=== PATIENT | female | born 1940 | race Caucasian/White ===

== ENCOUNTER 2018-06-10 12:52 | Emergency (ER) | payer MEDICARE, BC ==
[2018-06-10 13:23] VITALS: BP 125/57
--- NOTE | 2018-06-10 14:15 | UC ---
Respiratory Complaint HPI - HPI Summary HPI Summary: Patient complains of one week of cough, chest congestion and nasal congestion. Feels short of breath with any exertion. Is concerned about pneumonia. Of note patient reports she had a left lower extremity DVT and a subsequent below the knee amputation 5 years ago. She currently denies chest pain or nausea. No fever. Is currently on ASA and Plavix. - History of Current Complaint Chief Complaint: UCRespiratory Stated Complaint: RESP ISSUE Time Seen by Provider: 06/10/18 13:57 Hx Obtained From: Patient Onset/Duration: Gradual Onset, Lasting Days, Still Present Timing: Constant Severity Initially: Moderate Severity Currently: Moderate Pain Intensity: 6 Pain Scale Used: 0-10 Numeric Character: Cough: Nonproductive Aggravating Factors: Nothing Alleviating Factors: Nothing Associated Signs And Symptoms: Positive: Dyspnea, Nasal Congestion. Negative: Fever, Wheezing - Allergies/Home Medications Allergies/Adverse Reactions: Allergies Allergy/AdvReac Type Severity Reaction Status Date / Time No Known Allergies Allergy Verified 11/14/17 14:14 Home Medications: Home Medications Iron 1 tab PO DAILY 06/10/18 [History Confirmed 06/10/18] guaiFENesin [Mucinex] 1,200 mg PO ONCE PRN 06/10/18 [History Confirmed 06/10/18] PMH/Surg Hx/FS Hx/Imm Hx - Additional Past Medical History Additional PMH: LLE DVT Endocrine History: Diabetes Cardiovascular History: Hypertension GI/ History: Gastroesophageal Reflux Other History Of: Negative For: HIV, Hepatitis B, Hepatitis C, Anticoagulant Therapy - Surgical History Surgical History: Yes Surgery Procedure, Year, and Place: LEFT LEG BKA SEPTEMBER 2012 [facility]. TONSILLECTOMY A CHILD. BILAT CATARACTS - Family History Known Family History: Positive: Cardiac Disease, Hypertension, Diabetes Negative: Unknown Family History: Cancer - Social History Alcohol Use: Occasionally Alcohol Amount: 1/WEEK Substance Use Type: None Smoking Status (MU): Former Smoker Have You Smoked in the Last Year: No When Did the Patient Quit Smoking/Using Tobacco: 1993 Review of Systems All Other Systems Reviewed And Are Negative: Yes Constitutional: Positive: Fatigue ENT: Positive: Sore Throat, Nasal Discharge Respiratory: Positive: Shortness Of Breath, Cough Cardiovascular: Positive: Negative Gastrointestinal: Positive: Negative Physical Exam Triage Information Reviewed: Yes Appearance: No Pain Distress, Well-Nourished, Other: - SEEMS FATIGUED Vital Signs: Initial Vital Signs Temp 98 F 06/10/18 13:17 Pulse 68 06/10/18 13:17 Resp 18 06/10/18 13:17 BP 125/57 06/10/18 13:17 Pulse Ox 96 06/10/18 13:17 Vital Signs Reviewed: Yes Eyes: Positive: Conjunctiva Clear ENT: Positive: Hearing grossly normal Neck: Positive: Supple Respiratory: Positive: No respiratory distress, No accessory muscle use, Crackles - RIGHT LOWER LUNG. Negative: Wheezing Cardiovascular Exam: Normal Abdomen Description: Positive: Soft Musculoskeletal: Positive: No Edema, Other: - LEFT BKA Neurological: Positive: Alert Psychological: Positive: Age Appropriate Behavior Skin: Negative: Rashes UC Diagnostic Evaluation - Laboratory O2 Sat by Pulse Oximetry: 96 - Radiology Radiology Interpretation Completed By: Radiologist Summary of Radiographic Findings: CXR Findings consistent with right basilar pneumonia. Left lung field is clear. Respiratory Course/Dx - Course Course Of Treatment: CXR WITH RLL PNA. RX FOR LEVAQUIN. ADVISED OF BLACK BOX WARNING CONCERNING TENDONITIS/TENDON RUPTURE. BENEFITS OUTWEIGHT RISKS WILL GO AHEAD AND TX WITH THIS MED. ALSO DISCUSSED CONCERN FOR PE GIVEN H/O DVT AND CURRENT SOB. PT DECLINES TRANSFER TO ED TO RULE THIS OUT. ADVISED THAT SHE COULD BE RISKING WORSENING OF HER CONDITION THAT COULD POSE A THREAT TO HER LIFE , HEALTH AND MEDICAL SAFETY. SHE VERBALIZES UNDERSTANDING AND CONTINUES TO DECLINE TRANSFER. - Differential Dx/Diagnosis Provider Diagnoses: RIGHT BASILAR PNEUMONIA Discharge - Sign-Out/Discharge Documenting (check all that apply): Patient Departure All imaging exams completed and their final reports reviewed: Yes - Discharge Plan Condition: Stable Disposition: HOME Prescriptions: Albuterol HFA INHALER* [Ventolin HFA Inhaler*] 2 puff INH Q4H PRN #1 mdi PRN Reason: Shortness Of Breath Benzonatate CAP* [Tessalon CAP*] 1 - 2 cap PO TID PRN #30 cap PRN Reason: Cough Levofloxacin TAB* [Levaquin TAB*] 750 mg PO DAILY #7 tab Patient Education Materials: Pneumonia (ED) Referrals: Ayesha Alberto MD [Primary Care Provider] - (KEEP YOUR APPT IN 5 DAYS) Additional Instructions: CHEST X-RAY TODAY SHOWS A RIGHT LOWER LOBE PNEUMONIA. WILL TREAT WITH LEVAQUIN. TAKE FOR THE FULL COURSE. KEEP YOUR PCP APPT IN 5 DAYS. YOU SHOULD ALSO REPEAT THE CHEST XRAY IN 4-6 WEEKS TO DOCUMENT FULL RESOLUTION. DISCUSSED AT YOUR VISIT I AM CONCERNED ABOUT THE POSSIBILITY OF A PULMONARY EMBOLISM GIVEN YOUR HISTORY OF A DVT. WE ARE UNABLE TO PROPERLY EVALUATE FOR THIS HERE IN THE URGENT CARE. YOU HAVE DECLINED TRANSFER TO THE ED TODAY WITH THE UNDERSTANDING THAT IF YOU HAVE A PE IN ADDITION TO THE PNEUMONIA YOUR CONDITION MAY WORSEN LEADING TO RESPIRATORY DISTRESS/FAILURE, CARDIAC ARREST, /DISABILITY. GO TO THE ED WITHOUT FAIL IF YOU DEVELOP WORSENING SHORTNESS OF BREATH, FEVER, CHEST PAIN, DIZZINESS OR ANY OTHER CONCERNING SYMPTOMS. - Billing Disposition and Condition Condition: STABLE Disposition: Home
== END 2018-06-10 15:00 | disposition home or self-care (01) ==
LOC: UCEAST 12:52
DX: J18.9 Pneumonia, unspecified organism (principal); I10 Essential (primary) hypertension; E11.9 Type 2 diabetes mellitus without complications; Z79.82 Long term (current) use of aspirin; Z79.01 Long term (current) use of anticoagulants; Z87.891 Personal history of nicotine dependence
CPT/HCPCS: 71046; 99212; G0463

== ENCOUNTER 2019-06-23 16:14 | Emergency (ER) | payer MEDICARE, OTHER, BC ==
--- OUTSIDE RECORDS SUMMARY | 2019-06-23 16:19 | XMS REPORT | Summary of Care ---
:1940 Author Organization [facility] Address [address] [place] [address] Care Team Providers Name Role Phone Ayesha Alberto MD Primary Care Provider Reason for Visit Reason Comments Follow Up Encounter Details Date Type Department Care Team Description 05/20/2019 Office Visit [facility] Dc Colin Atherosclerosis of Surgery MD [place] arteries of extremities [address] [facility] (Primary Dx) [place] [address] [place] [address] [phone] Allergies Active Allergy Reactions Severity Noted Date Comments Lyrica Other 04/30/2018 coughing documented as of this encounter (statuses as of 06/12/2019) Medications Medication Sig Dispensed Refills Start Date End Date Status metFORMIN Take 250 mg 0 Active (GLUCOPHAGE) 500 MG by mouth Oral Tab DAILY. escitalopram Take 20 mg 0 Active (LEXAPRO) 20 MG Oral by mouth Tab NEEDED. Losartan Potassium Take 100 mg 0 Active 100 MG Oral Tab by mouth EVERY MORNING. AMLODIPINE BESYLATE Take 10 mg 0 Active PO by mouth DAILY. Omeprazole delayed Take 20 mg 0 Active rel cap (PRILOSEC) by mouth 20 MG Oral CAPSULE DAILY. DELAYED Indications RELEASEIndications: : Every Every other day other day Aspirin 81 MG Oral Take 81 mg 0 Active Tab by mouth DAILY. ATENOLOL PO Take 10 mg 0 Active by mouth DAILY. OXYBUTYNIN CHLORIDE Take 20 mg 0 Active PO by mouth DAILY. acetaminophen Take 650 mg 0 Active (TYLENOL) 325 MG by mouth Oral Tab EVERY FOUR HOURS NEEDED for Pain. Cholecalciferol Take 1,000 0 Active (VITAMIN D) 400 Units by UNITS Oral Cap mouth DAILY. clopidogrel (PLAVIX) Take 75 mg 0 Active 75 MG Oral Tab by mouth DAILY. MAGNESIUM PO Take by 0 Active mouth EVERY BEDTIME. Multiple Take by 0 Active Vitamins-Minerals mouth (ZINC PO) DAILY. Probiotic Product Take by 0 Active (PROBIOTIC DAILY PO) mouth. MELATONIN PO Take by 0 Active mouth. Ascorbic Acid Take by 0 Discontinued (VITAMIN C) 100 MG mouth. 9 (Other) Oral Chew Tab Ascorbic Acid Take by 0 Discontinued (VITAMIN C PO) mouth 9 (Other) DAILY. documented as of this encounter (statuses as of 06/12/2019) Active Problems Problem Noted Date BKA stump complication 05/30/2014 Open wound, lower leg 10/14/2011 Open wound of groin without complication 09/23/2011 Leg skin lesion, left 09/23/2011 Atherosclerosis of arteries of extremities 06/10/2011 Atherosclerosis of [place] arteries of the extremities with 02/25/2011 ulceration(440.23) BMI 32.0-32.9,adult 02/15/2011 Anxiety disorder Overview: Dr. Alberto Type 2 diabetes, controlled, with peripheral circulatory disorder Overview: Dr. Norris Seizure disorder Overview: sub-clinical eye twitching, neurologist in [facility] GERD (gastroesophageal reflux disease) Hypertension Overview: Dr. Plasencia documented as of this encounter (statuses as of 06/12/2019) Immunizations Name Administration Dates Next Due Kenalog (60mg) 08/28/2011 documented as of this encounter Social History Tobacco Use Types Packs/Day Years Used Date Former Smoker Cigarettes Quit: 07/21/1990 Smokeless Tobacco: Never Used Alcohol Use Drinks/Week oz/Week Comments No Sex Assigned at Date Recorded Not on file Job Start Date Occupation Industry Not on file Not on file Not on file Travel History Travel Start Travel End No recent travel history available. documented as of this encounter Last Filed Vital Signs Vital Sign Reading Time Taken Comments Blood Pressure 132/68 05/20/2019 12:27 PM EDT Pulse 64 05/20/2019 12:27 PM EDT Temperature - - Respiratory Rate - - Oxygen Saturation - - Inhaled Oxygen Concentration - - Weight 79.4 kg (175 lb) 05/20/2019 12:27 PM EDT Height 162.6 cm (5' 4") 05/20/2019 12:27 PM EDT Body Mass Index 30.04 05/20/2019 12:27 PM EDT documented in this encounter Progress Notes Dc Colin MD - 05/20/2019 12:20 PM EDT PATIENT: Mili Ronquillo : 1940 DATE OF SERVICE: 05/20/2019 REFERRING PRACTITIONER: Dc Colin PRIMARY CARE PROVIDER: Ayesha Alberto CHIEF COMPLAINT: Chief Complaint Patient presents with Follow Up HISTORY OF PRESENT ILLNESS: Mili Ronquillo is a 79-y.o. female who is seen in 6 month F/U right lower extremity PAD. Denies any symtpoms consistent with intermittent claudication. She is S/P left below the knee amputation done at [facility] in September 2012 for diabetes and PAD after a failed left leg bypass. Denies any significant pain or ulcers at this point. She does note a hypersensitivity of the left bka stump with numbness and pain which moves from area to area. Denies any pain or ulcers in the right lower extremity. DIAGNOSTICS 11/05/2018 EXAMINATION: Arterial - Lower INDICATION: PVD -443.9 TECHNOLOGIST: Nicole Jorgensen RT RVT IMPRESSION IMPRESSIONS: Indication: Follow up right LE PVD, prior LT AKA PVRs and dopplers of the right lower extremity were performed. The right lower extremity thigh and calf PVRs are mild, the ankle and transmet are moderate, and the 1st toe is mild with biphasic dopplers obtained at the dorsalis pedis and posterior tibial arteries. ABIs are not applicable due to noncompressible vessels. RT MILADIS: 1.20 There is no change seen since the previous study completed on 04/30/18. PVRs and dopplers can be viewed in the [facility]. MILADIS VALUE: Over 1.3 (Non compressible), .90-1.3 (Normal ) .89-.60 (Mild), .59-.40(Moderate),Under .40 (Severe) 04/30/18 IMPRESSIONS: Follow up right lower extremity PVD. History of left AKA. PVR waveforms of the right lower extremity were performed and were normal at the thigh and calf level, and mild from the ankle to the toe level. The right MILADIS was 1.07 with biphasic PT and DP Dopplers. This appears to be unchanged from the previus exam of 08/21/2017. PVR's and Dopplers can be viewed in the [facility] office. MILADIS VALUE: Over 1.3 (Non compressible), .90-1.3 (Normal ) .89-.60 (Mild), .59-.40(Moderate),Under .40 (Severe) PREVIOUS DIAGNOSTICS; 08/21/17 IMPRESSIONS: Indication: Follow up right lower extremity PVD PVRs and dopplers of the right lower extremity was performed. The right lower extremity thigh and calf PVRs are normal, the ankle, transmet, and 1st toe are mild with biphasic dopplers obtained at the dorsalis pedis and posterior tibial arteries. RT MILADIS: 1.06 NC There is a change seen since the previous study competed on 02/13/17. Today's MILADIS does appear to be noncompressible as the previous MILADIS was 0.77 with no change seen in the dopplers obtained at the dorsalis pedis and posterior tibial arteries. PVRs and dopplers can be viewed in the [facility] office. Current Outpatient Medications Medication Sig acetaminophen (TYLENOL) 325 MG Oral Tab Take 650 mg by mouth EVERY FOUR HOURS NEEDED for Pain. AMLODIPINE BESYLATE PO Take 10 mg by mouth DAILY. Aspirin 81 MG Oral Tab Take 81 mg by mouth DAILY. ATENOLOL PO Take 10 mg by mouth DAILY. Cholecalciferol (VITAMIN D) 400 UNITS Oral Cap Take 1,000 Units by mouth DAILY. clopidogrel (PLAVIX) 75 MG Oral Tab Take 75 mg by mouth DAILY. escitalopram (LEXAPRO) 20 MG Oral Tab Take 20 mg by mouth NEEDED. Losartan Potassium 100 MG Oral Tab Take 100 mg by mouth EVERY MORNING. MAGNESIUM PO Take by mouth EVERY BEDTIME. MELATONIN PO Take by mouth. metFORMIN (GLUCOPHAGE) 500 MG Oral Tab Take 250 mg by mouth DAILY. Multiple Vitamins-Minerals (ZINC PO) Take by mouth DAILY. Omeprazole delayed rel cap (PRILOSEC) 20 MG Oral CAPSULE DELAYED RELEASE Take 20 mg by mouth DAILY. Indications: Every other day OXYBUTYNIN CHLORIDE PO Take 20 mg by mouth DAILY. Probiotic Product (PROBIOTIC DAILY PO) Take by mouth. No current facility-administered medications for this visit. Allergies Allergen Reactions Lyrica Other coughing ROS: pertinent findings as in HPI. PHYSICAL EXAMINATION: VITALS: BP 132/68 (BP Location: Right arm, Patient Position: Sitting) | Pulse 64 | Ht 5' 4" (1.626 m) | Wt 175 lb (79.4 kg) | BMI 30.04 kg/m GENERAL: awake, alert, oriented, no distress. EXTREMITIES: amputation: left BKA without ulcers or open areas. PULSES: right PT dopplerable and DP dopplerable DIAGNOSTICS: 05/20/91 EXAMINATION: Arterial - Lower INDICATION: PVD -443.9 TECHNOLOGIST: Nicole Jorgensen RT RVT IMPRESSION IMPRESSIONS: Indication: PVD with previous left below the knee amputation PVRs and dopplers of the bilateral lower extremities were performed. The right lower extremity thigh and calf PVRs are normal, the ankle, transmet, and 1st toe are mild with biphasic dopplers obtained at the dorsalis pedis and posterior tibial arteries. RT MILADIS: 0.96 The left lower extremity thigh PVR is mild and the calf is moderate. There appears to be little to no change seen since the previous study completed on 11/05/18. PVRs and dopplers can be viewed in the [facility] office. MILADIS Value: Over 1.3 (Noncompressible), 0.90-1.3 (Normal, 0.89 - 0.60 (Mild), 0.59-0.40 (Moderate), Under 0.40 (Severe) IMPRESSION AND PLAN: Right lower extremity stable arterial perfusion. Continue aggressive management of her atherosclerotic risks factors, including aggressive management of her diabetes to prevent right leg limb loss in the long run. Continue Walking. I discuss with her diabetic foot care and prevention of trauma or ulcers. Continue ASA and Plavix. The patient will follow up in the Vascular Department in 6 months or sooner if problems arise. This note was created using my previous note as a template, changes were made where appropriate, allinformation in the current note is up to date to the best of my knowledge. Author: Dc Colin MD 05/20/2019 13:08 documented in this encounter Plan of Treatment Date Type Specialty Care Team Description 11/11/2019 Office Visit Vascular Surgery Dc Colin MD [address] [place] [address] [phone] Health Maintenance Due Date Last Done Comments Diabetic Eye Exam 1940 HEMOGLOBIN A1C 1940 MEDICARE ANNUAL WELLNESS VISIT 1940 DEPRESSION SCREENING 1954 HIV SCREENING 1957 FOOT EXAM 1960 ZOSTER IMMUNIZATION SERIES (1 of 2) 1992 FALL RISK ASSESSMENT 2007 OSTEOPOROSIS SCREENING 2007 PNEUMOCOCCAL 65+YRS (1 of 2 - 2007 PCV13) INFLUENZA VACCINE (#1) 2019 HPV IMMUNIZATION SERIES Aged Out No longer eligible based on patient's age to complete this topic MENINGOCOCCAL VACCINE IMM Aged Out No longer eligible based on patient's age to complete this topic documented as of this encounter Results Not on filedocumented in this encounter Visit Diagnoses Diagnosis Atherosclerosis of arteries of extremities (HCC) - Primary Atherosclerosis of [place] arteries of the extremities, unspecified documented in this encounter Insurance Payer Benefit Plan / Subscriber ID Effective Dates Phone Address Type Group MEDICARE MEDICARE PART A & xxxxxxxxxxx 2007-Present Medicare B [employer] xxxxxxxxx 2007-Present Thelma documented as of this encounter
[2019-06-23 16:37] VITALS: BP 154/70
--- NOTE | 2019-06-23 16:41 | UC ---
Skin Complaint HPI - HPI Summary HPI Summary: 79 yo female presents with LEFT leg concern. She tells me that years ago she had a left BKA. Recently she has been having trouble with pain to the leg and has been having her prosthetic leg adjusted. Over the last 2 days her prosthesis has been rubbing her stump. Today she noticed increased pain and redness to the skin at the area. She called the wound clinic as she has seen them in the past for sores to her stump with positive MRSA - made an appt for this monday 06/25. Denies fever, chills, or open wound. - History of Current Complaint Chief Complaint: UCLowerExtremity Time Seen by Provider: 06/23/19 16:40 Stated Complaint: SKIN COMPLAINT KNEE Hx Obtained From: Patient Onset/Duration: Gradual Onset Onset Severity: Severe Current Severity: Severe Pain Intensity: 9 Pain Scale Used: 0-10 Numeric - Allergy/Home Medications Allergies/Adverse Reactions: Allergies Allergy/AdvReac Type Severity Reaction Status Date / Time No Known Allergies Allergy Verified 06/23/19 16:37 PMH/Surg Hx/FS Hx/Imm Hx - Additional Past Medical History Additional PMH: PVD Endocrine History: Diabetes Cardiovascular History: Hypertension Other History Of: Negative For: HIV, Hepatitis B, Hepatitis C, Anticoagulant Therapy - Surgical History Surgical History: Yes Surgery Procedure, Year, and Place: LEFT LEG BKA SEPTEMBER 2012 [facility]. TONSILLECTOMY A CHILD. BILAT CATARACTS - Family History Known Family History: Positive: Cardiac Disease, Hypertension, Diabetes Negative: Unknown Family History: Cancer - Social History Alcohol Use: Occasionally Alcohol Amount: 1/WEEK Substance Use Type: None Smoking Status (MU): Former Smoker Have You Smoked in the Last Year: No When Did the Patient Quit Smoking/Using Tobacco: 1993 Review of Systems All Other Systems Reviewed And Are Negative: No Constitutional: Positive: Negative Skin: Positive: Other - Redness and pain left stump Respiratory: Positive: Negative Cardiovascular: Positive: Negative Neurovascular: Positive: Negative Neurological: Positive: Negative Psychological: Positive: Negative Physical Exam - Summary Physical Exam Summary: GENERAL: NAD. WDWN. No pain distress. SKIN: LEFT STUMP: Moderate erythema about anterior aspect with TTP. Mild warmth. No open sores, streaking, or drainage. No abscess or induration appreciated. CHEST: No accessory muscle use. Breathing comfortably and in no distress. CV: Pulses intact. Cap refill <2seconds NEURO: Alert. PSYCH: Age appropriate behavior. Triage Information Reviewed: Yes Vital Signs: Initial Vital Signs Temp 99.1 F 06/23/19 16:30 Pulse 76 06/23/19 16:30 Resp 18 06/23/19 16:30 BP 154/70 06/23/19 16:30 Pulse Ox 98 06/23/19 16:30 Vital Signs Reviewed: Yes Diagnostics - Radiology CT left stump Radiology Interpretation Completed By: Radiologist Summary of Radiographic Findings: IMPRESSION: #. No fracture or CT stigmata of osteomyelitis. #. Nonspecific soft tissue swelling about the knee and below knee amputation stump. #. Osteoarthritis at the knee. Negative for joint effusion. Course/Dx - Course Course Of Treatment: Ct as above. No fever or chills. Suspect cellulitis from her prosthesis rubbing against the area. Will place her on clindamycin given her history of MRSA. Strongly advised to keep her appointment with the wound clinic in 2 days for a recheck - Diagnoses Provider Diagnosis: Cellulitis of left leg Discharge ED - Sign-Out/Discharge Documenting (check all that apply): Patient Departure All imaging exams completed and their final reports reviewed: Yes - Discharge Plan Condition: Stable Disposition: HOME Prescriptions: Clindamycin HCl 300 mg PO TID #21 capsule Patient Education Materials: Cellulitis (ED) Referrals: Ayesha Alberto MD [Primary Care Provider] - Additional Instructions: If you develop a fever, shortness of breath, chest pain, new or worsening symptoms - please call your PCP or go to the ED immediately. Please take the antibiotics as prescribed. Keep your appointment with the wound center for this friday for a recheck of your leg. - Billing Disposition and Condition Condition: STABLE Disposition: Home
== END 2019-06-23 18:06 | disposition home or self-care (01) ==
LOC: UCEAST 16:14
DX: L03.116 Cellulitis of left lower limb (principal); M17.12 Unilateral primary osteoarthritis, left knee; T87.89 Other complications of amputation stump; M79.89 Other specified soft tissue disorders; E11.9 Type 2 diabetes mellitus without complications; I10 Essential (primary) hypertension; Z96.643 Presence of artificial hip joint, bilateral; Z96.653 Presence of artificial knee joint, bilateral; Z87.891 Personal history of nicotine dependence; Y83.5 Amputation of limb(s) as the cause of abnormal reaction of the patient, or of later complication, without mention of misadventure at the time of the procedure
CPT/HCPCS: 99212; G0463

== ENCOUNTER → 2019-09-17 09:42 | Day surgery (SDC) | payer MEDICARE, BC ==
[~2019-09-17 09:42] MED LIST: Atenolol TAB* 25 MG PO ONE; Flumazenil* 0.1 MG/ML 5 ML MDV ONE; Heparin 2 UNITS/ML IVPREMIX* 2,000 ML IV ONE; Iodixanol 320 (CONTRAST) 100 ML SDV ONE; LORazepam TAB(*) 1 MG ONE; Lidocaine 1% INJ* 10 MG/ML 30 ML SDV ONE; Losartan TAB* 25 MG PO ONE; Midazolam* 1 MG/ML 5 ML VIAL (5 MG) ONE; Naloxone* 0.4 MG/ML 1 ML VIAL ONE; amLODIPine TAB* 5 MG PO ONE; fentaNYL* 50 MCG/ML 2 ML VIAL (100 MCG VIAL) ONE; hydrALAZINE IV* 20 MG/ML VIAL ONE
[2019-09-17 10:59] LABS: ABS Basophils 0.1 10^3/ul (0-0.2); ABS Eosinophils 0.2 10^3/ul (0-0.6); ABS Lymphocytes 2.5 10^3/ul (1.0-4.8); ABS Monocytes 0.5 10^3/ul (0-0.8); ABS Neutrophils 4.1 10^3/ul (1.5-7.7); Eosinophil % 3.1 %; Hematocrit 40 % (35-47); Hemoglobin 13.8 g/dL (12.0-16.0); Lymphocyte % 33.4 %; Mean Corpuscular HGB Conc 35 g/dL (31-36); Mean Corpuscular Hemoglobin 32 pg (27-31); Mean Corpuscular Volume 94 fL (80-97); Mean Platelet Volume 7.2 fL (7.4-10.4); Nucleated Red Blood Cells % 0.1; Platelet Count 214 10^3/uL (150-450); Red Blood Count 4.26 10^6 /uL (3.70-4.87); Red Cell Distribution Width 14 % (10-15); White Blood Count 7.4 10^3/uL (3.5-10.8)
[2019-09-17 11:04] LABS: Activated Partial Thrombo Time 30.3 seconds (26.0-38.0); INR 1.02 (0.82-1.09)
[2019-09-17 11:42] LABS: BUN/Creatinine Ratio 14.3 (8-20); EGFR African American 41.7 (>60); EGFR Non-African American 34.5 (>60); Potassium 4.4 mmol/L (3.5-5.0)
[2019-09-17 15:31] VITALS: BP 189/108
== END | disposition home or self-care (01) ==
LOC: CHICATH 09:42
PROVIDERS: ATTEND Radiology Diagnostic Radiology
DX: L97.821 Non-pressure chronic ulcer of other part of left lower leg limited to breakdown of skin (principal); T87.89 Other complications of amputation stump; I73.9 Peripheral vascular disease, unspecified; I10 Essential (primary) hypertension; M54.16 Radiculopathy, lumbar region; Z87.891 Personal history of nicotine dependence; Z79.01 Long term (current) use of anticoagulants; R06.00 Dyspnea, unspecified; I07.9 Rheumatic tricuspid valve disease, unspecified; E11.9 Type 2 diabetes mellitus without complications; Z79.84 Long term (current) use of oral hypoglycemic drugs; Z89.512 Acquired absence of left leg below knee
CPT/HCPCS: 36415; 75736; 76937; 80048; 85025; 85610; 85730; 99156; 99157; A9270-GY; C1760; C1769; C1887; C1894; J0360; J1644; J2250; J2310; J3010

== ENCOUNTER 2019-10-18 15:50 | Emergency (ER) | payer MEDICARE, BC ==
--- OUTSIDE RECORDS SUMMARY | 2019-10-18 15:56 | XMS REPORT | Continuity of Care Document ---
:1940 External Reference #:[id number] Author Name Matty Garcia M.D. (transmitted by agent of provider Shayna Alvarez) Address [address] [facility] [address] [place] [address] Care Team Providers Name Role Phone Ayesha Bose MD - Family Medicine Care Team Information Shopper Insights Manager Problems Active Problems Provider Date Benign essential hypertension Shawn Cox M.D., [facility] Onset: 2012 Dyspnea Shawn Cox M.D., [facility] Onset: 05/04/2013 Mitral valve disorder Shawn Cox M.D., [facility] Onset: 05/23/2014 Rheumatic disease of tricuspid valve Shawn Cox M.D., [facility] Onset: Strain of rotator cuff capsule Hansel Lewis M.D. Onset: 02/21/2015 Disorder due to and following Anjum Hernandez MD Onset: 06/07/2015 fracture of upper limb Essential hypertension Darwin Atwood M.D. Onset: 06/10/2017 Snoring Khloe Quevedo DNP, RN, Onset: 04/27/2018 AUTOGLAZIER-BC Disturbance in sleep behavior Khloe Quevedo DNP, RN, Onset: 04/27/2018 AUTOGLAZIER-BC Hypoxemia Khloe Quevedo DNP, RN, Onset: 04/27/2018 AUTOGLAZIER-BC Lumbar radiculopathy Matty Garcia M.D. Onset: 07/28/2019 Ulcer of lower extremity Matty Garcia M.D. Onset: 07/28/2019 Atherosclerosis of arteries of the Matty Garcia M.D. Onset: 07/28/2019 extremities Social History Type Date Description Comments Sex Unknown Tobacco Use Start: Unknown End: Former Cigarette Smoker Smoked 1 ppd for 30 Unknown years Smoking Status Reviewed: 08/04/19 Former Cigarette Smoker Smoked 1 ppd for 30 years ETOH Use Occasionally consumes alcohol Tobacco Use Start: Unknown End: Patient is a former quit when she was Unknown smoker 52 years old Recreational Drug Use Denies Drug Use Exercise Type/Frequency Exercises regularly 4x/weekly swimming Allergies, Adverse Reactions, Alerts Active Allergies Reaction Severity Comments Date Pregabalin 06/10/2017 Inactive Allergies NKDA 05/04/2013 Medications Active Medications SIG Qnty Indications Ordering Provider Date Tylenol Extra 1-2 tabs by Matty Garcia, 07/28/2019 Strength mouth every 6 M.DBarry 500mg Tablets hours as needed Atenolol 1 by mouth twice 180tabs Darwin Sheldon 03/24/2019 25mg Tablets a day Saeed Atwood Melatonin one cap po every Unknown 03/23/2019 1mg Capsules night Losartan Potassium 1 po qd 90tabs Shawn Cox, 04/29/2013 Saeed, FACC, FSCAI 100mg Tablets Norvasc 1 po Am 30tabs Unknown 10mg Tablets Plavix 1 po qd 30tabs Unknown 75mg Tablets Omeprazole 1 po qd prn 90caps Unknown 20mg Capsules DR Oxybutynin Chloride One by mouth Unknown ER daily Vitamin D 1 by mouth every Unknown 4000 Capsules day Metformin HCL 1 by mouth every Unknown 500mg day Tablets Immunizations Description No Information Available Vital Signs Date Vital Result Comment 08/04/2019 10:44am Height 64 inches 5'4" Weight 175.00 lb Heart Rate 58 /min BP Systolic 162 mmHg BP Diastolic 82 mmHg Respiratory Rate 20 /min O2 % BldC Oximetry 98 % BMI (Body Mass Index) 30.0 kg/m2 07/28/2019 11:07am Height 64 inches 5'4" Weight 175.12 lb w/ shoes Heart Rate 54 /min L. radial, regular BP Systolic Sitting 146 mmHg LA, reg cuff BP Diastolic Sitting 62 mmHg LA, reg cuff BMI (Body Mass Index) 30.1 kg/m2 Results Test Acquired Date Facility Test Result H/L Range Note CBC Auto 09/17/2019 [facility] White Blood 7.4 10^3/uL Normal 3.5-10.[address] [place] [address] [phone] Red Blood Count 4.26 10^6/uL Normal 3.70-4.87 Hemoglobin 13.8 g/dL Normal 12.0-16.0 Hematocrit 40 % Normal 35-47 Mean Corpuscular Volume 94 fL Normal 80-97 Mean Corpuscular Hemoglobin 32 pg High 27-31 Mean Corpuscular HGB Conc 35 g/dL Normal 31-36 Red Cell Distribution Width 14 % Normal 10-15 Platelet Count 214 10^3/uL Normal 150-450 Mean Platelet Volume 7.2 fL Low 7.4-10.4 Abs Neutrophils 4.1 10^3/uL Normal 1.5-7.7 Abs Lymphocytes 2.5 10^3/uL Normal 1.0-4.8 Abs Monocytes 0.5 10^3/uL Normal 0-0.8 Abs Eosinophils 0.2 10^3/uL Normal 0-0.6 Abs Basophils 0.1 10^3/uL Normal 0-0.2 Abs Nucleated RBC 0.0 10^3/uL Granulocyte % 55.5 % Lymphocyte % 33.4 % Monocyte % 7.1 % Eosinophil % 3.1 % Basophil % 0.9 % Nucleated Red Blood Cells % 0.1 Inr/Protime 09/17/2019 [facility] Inr 1.02 Normal 0.82-1.[address] [place] [address] [phone] Laboratory test 09/17/2019 [facility] Partial 30.3 Normal 26.0 -38.0 finding [address] [place] [address] Time PTT [phone] Basic Metabolic 09/17/2019 [facility] Sodium 139 mmol/L Normal 135-[address] [place] [address] [phone] Potassium 4.4 mmol/L Normal 3.5-5.0 Chloride 109 mmol/L Normal 101-111 Co2 Carbon Dioxide 23 mmol/L Normal 22-32 Anion Gap 7 mmol/L Normal 2-11 Glucose 136 mg/dL High 70-100 Blood Urea Nitrogen 21 mg/dL Normal 6-24 Creatinine 1.47 mg/dL High 0.51-0.95 BUN/Creatinine Ratio 14.3 Normal 8-20 Calcium 10.0 mg/dL Normal 8.6-10.3 Egfr Non- 34.5 >60 Egfr 41.7 >60 2 Wound 06/25/2019 [facility] Wound/Misc SEE RESULT 3, 4 Culture/Sensi [address] [place] [address] Stain [phone] 1 Standard intensity warfarin therapeutic range: 2.0-3.0 High intensity warfarin therapeutic range: 2.5-3.5 2 Because ethnic data is not always readily available, this report includes an eGFR for both -Americans and non- Americans. The National Kidney Disease Education Program (NKDEP) does not endorse the use of the MDRD equation for patients that are not between the ages of 18 and 70, are , have extremes of body size, muscle mass, or nutritional status, or are non- or non-. According to the National Kidney Foundation, irrespective of diagnosis, the stage of the disease is based on the level of kidney function: Stage Description GFR(mL/min/1.73 m(2)) 1 Kidney damage with normal or decreased GFR 90 2 Kidney damage with mild decrease in GFR 60-89 3 Moderate decrease in GFR 30-59 4 Severe decrease in GFR 15-29 5 Kidney failure <15 (or dialysis) 3 LEFT STUMP SITE 4 SEE RESULT BELOW Name: MILI RONQUILLO : [address]: Ildefonso Cordova MD Acct: [id number] Unit: [id number] AGE: 79 Location: WOUND Re06/25/19 SEX: F Status: REG REF SPEC: [id number] HUSSAIN: 06/25/19-[address]: Ildefonso Cordova MD REQ: [id number] RECD: 06/25/19 STATUS: PACHECO STOVALL DR: Ayesha Alberto MD _ SOURCE: NO SOURCE SPDESC: ORDERED: Culture Stain COMMENTS: LEFT STUMP SITE QUERIES: Specimen Description STUMP SITE Procedure Result Reported Site Wound/Misc Gram Stain Final 06/26/19- 0559 ML 1+ Neutrophils 1+ Gram Positive Cocci Wound/Misc Culture Final 06/27/19- 1006 ML Organism 1 STAPHYLOCOCCUS AUREUS Quantity 2+ 1. STAPHYLOCOCCUS AUREUS M.I.C. RX --------- ------ Penicillin >=0.5 R Clindamycin <=0.25 S Erythromycin >=8 R Gentamicin <=0.5 S Linezolid 2 S Oxacillin <=0.25 S * Quinupristin/Dalfopristin <=0.25 S Rifampin <=0.5 S Tetracycline <=1 S Doxycycline - Deduced S * Minocycline - Deduced S Trimethoprim/Sulfamethoxazole <=10 S Vancomycin 1 S CONTINUED ON NEXT PAGE DEPARTMENT OF PATHOLOGY, [address] [place] [address] Pepe Parrish M.D. Director [facility] # [id number] Specimen: [id number] Collected: 06/25/19 Received: 06/25/19 (Continued) Procedure Result Reported Site Wound/Misc Culture Final (continued) 06/27/19- 1006 1. STAPHYLOCOCCUS AUREUS (continued) M.I.C. RX --------- ------ Imipenem-Deduced S * Ampicillin/Sulbactam-Deduced S Cefazolin-Deduced S * These antibiotics are not available in the [facility] Formulary Contact the Microbiology Department for any additional antibiotic reporting. * ML - Main Lab . END OF REPORT DEPARTMENT OF PATHOLOGY, [address] [place] [address] Pepe Parrish M.D. Director [facility] # [id number] Procedures Date Code Description Status 09/17/2019 89209 Moderate Sedation Services; Same Phys Intl 15 Mins; PT Completed >= 5 Years 09/17/2019 01352 Ultrasound Guidance For Vascular Access Completed 09/17/2019 27724 Angio Extremity, Bilateral Completed 09/17/2019 44942 Catheter Placement Arterial System Init 3RD Order Completed Abdom/Pelv/Low 11/14/2017 85260843 Colonoscopy Completed Medical Devices Description No Information Available Encounters Type Date Location Provider Dx Diagnosis Office Visit 09/17/2019 Wound Care Ildefonso Cordova, T87.89 Other complications 9:00a Center AT [facility] CHANDANA LOPES of amputation stump I70.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 athscl [place] arteries of extremities, left leg Office Visit 08/20/2019 11:00a Wound Care Ildefonso Yan T87.89 Other complications Center AT [facility] MD Tasha, of amputation stump FACS 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 M54.16 Radiculopathy, lumbar region Office Visit 07/23/2019 Marina Hall T87.89 Other 1:00p Orthopedics at complications of [place] amputation stump Office Visit 07/12/2019 Wound Care Center Ildefosno Cordova, T87.89 Other 1:45p AT [facility] CHANDANA LOPES complications of amputation stump I70.202 Unsp athscl [place] arteries of extremities, left leg Office Visit 07/07/2019 11:15a Wound Care Dennys Ruiz T87.89 Other complications Center AT MD Emil of amputation stump [facility] Office Visit 07/02/2019 10:15a Wound Tomeka Cordova T87.89 Other complications Center AT CHANDANA LOPES of amputation stump [facility] Office Visit 06/25/2019 10:00a Wound Care Ildefonso Cordova I70.202 [facility] AT CHANDANA LOPES arteries of [facility] extremities, left leg T87.89 Other complications of amputation stump Assessments Date Code Description Provider 09/17/2019 I70.202 Unspecified atherosclerosis of [place] Matty Garcia M.D. arteries of extremities, left leg 09/17/2019 T87.89 Other complications of amputation stump Ildefonso Cordova MD , FACS 09/17/2019 I70.202 Unspecified atherosclerosis of [place] Ildefonso Cordova MD , FACS arteries of extremities, left leg 08/20/2019 T87.89 Other complications of amputation stump Ildefonso Cordova MD , FACS 08/20/2019 I70.202 Unspecified atherosclerosis of [place] Ildefonso Cordova MD , FACS arteries of extremities, left leg 08/04/2019 T84.498A Other mechanical complication of other Hailey Vital M.D. internal orthopedic devices, implants and grafts, initial encounter 08/04/2019 R22.31 Localized swelling, mass and lump, right Hailey Vital M.D. upper limb 07/30/2019 T87.89 Other complications of amputation stump Ildefonso Cordova MD , FACS 07/30/2019 I70.202 Unspecified atherosclerosis of [place] Ildefonso Cordova MD , FACS arteries of extremities, left leg 07/28/2019 I70.202 Unspecified atherosclerosis of [place] Matty Garcia M.D. 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 07/23/2019 T87.89 Other complications of amputation stump Thomas Hall MD 07/12/2019 T87.89 Other complications of amputation stump Ildefonso Cordova MD , FACS 07/12/2019 I70.202 Unspecified atherosclerosis of [place] Ildefonso Cordova MD , FACS arteries of extremities, left leg 07/07/2019 T87.89 Other complications of amputation stump Dennys Stein MD 07/02/2019 T87.89 Other complications of amputation stump Ildefonso Cordova MD , FACS 06/25/2019 I70.202 Unspecified atherosclerosis of [place] Ildefonso Cordova MD , FACS arteries of extremities, left leg 06/25/2019 T87.89 Other complications of amputation stump Ildefonso Cordova MD , FACS Plan of Treatment 08/04/2019 - Hailey Vital M.D.T84.498A Other mechanical complication of other internal orthopedic devices, implants and grafts, initial encounterFollow up:Follow up: As [id number] Localized swelling, mass and lump, right upper limb Functional Status Description No Information Available Mental Status Description No Information Available Referrals Description No Information Available
--- OUTSIDE RECORDS SUMMARY | 2019-10-18 15:56 | XMS REPORT | Summary of Care ---
:1940 Author Organization [facility] Address [address] [facility] [place] [address] Care Team Providers Name Role Phone Ayesha Alberto MD Primary Care Provider Reason for Referral Refer to Department Only (Routine) Status Reason Specialty Diagnoses / Referred By Referred To Procedures Contact Contact Authorized NEUROSURGERY / Diagnoses Stump pain (HCC) Dc Colin Neurosurgery MD [place] [address] [facility] [place] [address] Scheduling Instructions To refer a patient to the [facility] please call [phone] Please have the following ready: -Symptoms of patient being referred -Recent films if available, NOT REQUIRED! -Known prior sugeries Reason for Visit Reason Comments Peripheral Vascular Disease 6 month f/u. Hx: left BKA. Encounter Details Date Type Department Care Team Description 09/30/2019 Office Visit [place] V[facility] Dc Colin Stump pain (HCC) ( Primary Dx); Surgery MD [place] BKA stump complication (HCC); [address] [facility] History of left below knee amputation (HCC); [place] [address] [place] [address] Atherosclerosis of arteries of extremities (HCC); [phone] Type 2 diabetes, controlled, with peripheral circulatory disorder ([facility]) Allergies Active Allergy Reactions Severity Noted Date Comments Lyrica Other 04/30/2018 coughing documented as of this encounter (statuses as of 10/02/2019) Medications Medication Sig Dispensed Refills Start Date End Date Status metFORMIN Take 500 mg 0 Active (GLUCOPHAGE) 500 MG by [...] 75 MG Oral Tab by mouth DAILY. MELATONIN PO Take by 0 Active mouth. MAGNESIUM PO Take by 0 Discontinued mouth EVERY 0 (Discontinued by BEDTIME. Patient Contact Move Utility) Multiple Take by 0 Discontinued Vitamins-Minerals mouth 0 (Discontinued by (ZINC PO) DAILY. Patient Contact Move Utility) Probiotic Product Take by 0 Discontinued (PROBIOTIC DAILY PO) mouth. 0 (Discontinued by Patient Contact Move Utility) documented as of this encounter (statuses as of 10/02/2019) Active Problems Problem Noted Date BKA stump complication 05/30/2014 Open wound, lower leg 10/14/2011 Open wound of groin without complication 09/23/2011 Leg skin lesion, left 09/23/2011 Atherosclerosis of arteries of extremities 06/10/2011 Atherosclerosis of grindstone arteries of the extremities with 02/25/2011 ulceration(440.23) BMI 32.0-32.9,adult 02/15/2011 Anxiety disorder Overview: Dr. Alberto Type 2 diabetes, controlled, with peripheral circulatory disorder Overview: Dr. Norris Seizure disorder Overview: sub-clinical eye twitching, neurologist in [facility] GERD (gastroesophageal reflux disease) Hypertension Overview: Dr. Plasencia documented as of this encounter (statuses as of 10/02/2019) Social History Tobacco Use Types Packs/Day Years Used Date Former Smoker Cigarettes Quit: 07/21/1990 Smokeless Tobacco: Never Used Alcohol Use Drinks/Week oz/Week Comments No Sex Assigned at Date Recorded Not on file documented as of this encounter Last Filed Vital Signs Vital Sign Reading Time Taken Comments Blood Pressure 140/82 09/30/2019 1:20 PM EDT Pulse 58 09/30/2019 1:20 PM EDT Temperature - - Respiratory Rate - - Oxygen Saturation - - Inhaled Oxygen Concentration - - Weight 79.4 kg (175 lb) 09/30/2019 1:20 PM EDT Height 161.3 cm (5' 3.5") 09/30/2019 1:20 PM EDT Body Mass Index 30.51 09/30/2019 1:20 PM EDT documented in this encounter Progress Notes Dc Colin MD - 09/30/2019 1:00 PM EDT PATIENT: Mili Ronquillo : 1940 DATE OF SERVICE: 09/30/2019 REFERRING PRACTITIONER: Self-Referred PRIMARY CARE PROVIDER: Ayesha Alberto CHIEF COMPLAINT: Chief Complaint Patient presents with ? Peripheral Vascular Disease 6 month f/u. Hx: left BKA. HISTORY OF PRESENT ILLNESS: Mili Ronquillo is a 79-y.o. female who is seen in 6 month F/U right lower extremity PAD. Denies any symtpoms consistent with intermittent claudication. She is S/P left below the knee amputation done at [facility] in September 2012 for diabetes and PAD after a failed left leg bypass. She notes small wound on end of stump. She notes left stump shooting pain which is not constant but intermittent. It seems worse when she takes prosthesis off and rests .She notes numbness and coolness of the stump which is off and on. Denies any pain or ulcers in the right lower extremity. She recently had an angiogram performed at [facility] which indicated left popliteal artery occlusion from knee down to stump. PREVIOUS DIAGNOSTICS: 05/20/19 ? EXAMINATION: Arterial - Lower ? INDICATION: PVD -443.9 ? TECHNOLOGIST: Nicole Jorgensen RT RVT ? ? IMPRESSION IMPRESSIONS: Indication: PVD with previous left below the knee amputation ? ? PVRs and dopplers of the bilateral lower extremities were performed. ? ? The right lower extremity thigh and calf PVRs are normal, the ankle, transmet, and 1st toe are mild with biphasic dopplers obtained at the dorsalis pedis and posterior tibial arteries. ? RT MILADIS: 0.96 ? The left lower extremity thigh PVR is mild and the calf is moderate. ? ? There appears to be little to no change seen since the previous study completed on 11/05/18. ? ? PVRs and dopplers can be viewed in the Screening Unit Registered Nurse's office. ? ? ? MILADIS Value: Over 1.3 (Noncompressible), 0.90-1.3 (Normal, 0.89 - 0.60 (Mild), 0.59-0.40 (Moderate), Under 0.40 (Severe) 11/05/2018 EXAMINATION: Arterial - Lower ? INDICATION: PVD -443.9 ? TECHNOLOGIST: Nicole Jorgensen RT RVT ? ? IMPRESSION IMPRESSIONS: Indication: Follow up right LE PVD, prior LT AKA ? ? ? PVRs and dopplers of the right lower extremity were performed. ? ? The right lower extremity thigh and calf PVRs are mild, the ankle and transmet are moderate, and the 1st toe is mild with biphasic dopplers obtained at the dorsalis pedis and posterior tibial arteries. ? ABIs are not applicable due to noncompressible vessels. ? RT MILADIS: 1.20 ? ? ? There is no change seen since the previous study completed on 04/30/18. ? ? PVRs and dopplers can be viewed in the Screening Unit Registered Nurse's office. ? ? ? MILADIS VALUE: Over 1.3 (Non compressible), .90-1.3 (Normal ) .89-.60 (Mild), .59-.40(Moderate),Under .40 (Severe) 04/30/18 IMPRESSIONS: Follow up right lower extremity PVD. History of left AKA. ? PVR waveforms of the right lower extremity were performed and were normal at the thigh and calf level, and mild from the ankle to the toe level. ? The right MILADIS was 1.07 with biphasic PT and DP Dopplers. ? This appears to be unchanged from the previus exam of 08/21/2017. ? ? PVR's and Dopplers can be viewed in the Screening Unit Registered Nurse's office. ? MILADIS VALUE: Over 1.3 (Non compressible), .90-1.3 (Normal ) .89-.60 (Mild), .59-.40(Moderate),Under .40 (Severe) 08/21/17 IMPRESSIONS: Indication: Follow up right lower extremity PVD ? ? PVRs and dopplers of the right lower extremity was performed. ? The right lower extremity thigh and calf PVRs are normal, the ankle, transmet, and 1st toe are mild with biphasic dopplers obtained at the dorsalis pedis and posterior tibial arteries. ? RT MILADIS: 1.06 NC ? ? There is a change seen since the previous study competed on 02/13/17. Today's MILADIS does appear to be noncompressible as the previous MILADIS was 0.77 with no change seen in the dopplers obtained at the dorsalis pedis and posterior tibial arteries. ? PVRs and dopplers can be viewed in the Screening Unit Registered Nurse's office. Current Outpatient Medications Medication Sig ? acetaminophen (TYLENOL) 325 MG Oral Tab Take 650 mg by mouth EVERY FOUR HOURS NEEDED forPain. ? AMLODIPINE BESYLATE PO Take 10 mg by mouth DAILY. ? Aspirin 81 MG Oral Tab Take 81 mg by mouth DAILY. ? ATENOLOL PO Take 10 mg by mouth DAILY. ? Cholecalciferol (VITAMIN D) 400 UNITS Oral Cap Take 1,000 Units by mouth DAILY. ? clopidogrel (PLAVIX) 75 MG Oral Tab Take 75 mg by mouth DAILY. ? escitalopram (LEXAPRO) 20 MG Oral Tab Take 20 mg by mouth NEEDED. ? Losartan Potassium 100 MG Oral Tab Take 100 mg by mouth EVERY MORNING. ? MELATONIN PO Take by mouth. ? metFORMIN (GLUCOPHAGE) 500 MG Oral Tab Take 500 mg by mouth DAILY. ? Omeprazole delayed rel cap (PRILOSEC) 20 MG Oral CAPSULE DELAYED RELEASE Take 20 mg by mouthDAILY. Indications: Every other day ? OXYBUTYNIN CHLORIDE PO Take 20 mg by mouth DAILY. No current facility-administered medications for this visit. Allergies Allergen Reactions ? Lyrica Other coughing ROS: pertinent findings as in HPI. PHYSICAL EXAMINATION: VITALS: BP 140/82 (BP Location: Right arm, Patient Position: Sitting) | Pulse 58 | Ht 5' 3.5" (1.613 m) |Wt 175 lb (79.4 kg) | BMI 30.51 kg/m GENERAL: awake, alert, oriented, no distress. EXTREMITIES: amputation: left BKA with discoloration and wound on end of stump PULSES: right PT dopplerable and DP dopplerable DIAGNOSTICS: 09/30/2019 IMPRESSIONS: Patient with below knee left leg amputation and PVD states left stump pain and wound. ? ABIs and PVRs of the right thigh,calf and ankle are normal with mild right metatarsal and toe digit. ? PVRS of the upper left thigh are mild with moderate low left thigh. ? Biphasic right DP/PT, Biphasic left thigh and low thigh. ? Right MILADIS: .93 Left BKA ? There has been little change since previous exam of 05/20/2019. ? MILADIS Value: Over 1.3 (Noncompressible), 0.90-1.3 (Normal, 0.89 - 0.60 (Mild), 0.59-0.40 (Moderate), Under 0.40 (Severe) IMPRESSION AND PLAN: Right lower extremity stable arterial perfusion. Continue aggressive management of her atherosclerotic risks factors, including aggressive management of her diabetes to prevent right leg limb loss in the long run(May consider insulin if her Hb A1c levels are not controlled). Continue Walking. I discuss with her diabetic foot care and prevention of trauma or ulcers. Continue ASA and Plavix. I have reviewed the angiogram images in detail myself and she does have widely patent right common femoral artery, right especially femoral artery, right popliteal artery with tibial vessel disease however widely patent right tibioperoneal trunk and right peroneal artery down to the ankle. The right anterior tibial artery and posterior tibial artery appears to be occluded. However there is no role for any peripheral vascular intervention endovascular intervention at this point in time since the patient is asymptomatic, does not have any ulcerations or in her right foot. Continue to monitor, should she develop ulcerations or rest pain she may require a repeat angiogram with intervention if feasible. She is s/p left bka with left stump wound and pain intermittently. She may benefit from different type of prosthetic for her left bellow the knee amputation stump. Her left popliteal artery is occluded from the knee down and I do not believe it is amenable to any kind of a endovascular or open revascularization. We have discussed the option of left [id number] amputation, however she understands that walking on a an goumu-ide-egkl amputation prosthesis is very difficult especially if at her age and she is not interested at this point in time she really would like to try a different type of left below the knee amputation prosthesis as above. The patient will follow up in the Vascular Department in 6 months or sooner if problems arise. I spent a total of at least 25 minutes with this patient, over half of which was devoted to counseling/coordination of care. We discussed in great detail the treatment plan, treatment options, and alternatives to the treatment. All questions answered to the patient's satisfaction. This note was created using my previous note as a template, changes were made where appropriate, allinformation in the current note is up to date to the best of my knowledge. Author: Dc Colin MD 09/30/2019 13:36 documented in this encounter Plan of Treatment Date Type Specialty Care Team Description 11/08/2019 Office Visit Neurosurgery Riki Novoa MD [address] [place] [address] [phone] Name Type Priority Associated Diagnoses Order Schedule REFER TO SPINE CL[facility]IC Referral Routine Stump pain (HCC) Expected: 2019, Expires: 09/29/2020 Health Maintenance Due Date Last Done Comments Diabetic Eye Exam 1940 HEMOGLOBIN A1C 1940 MEDICARE ANNUAL WELLNESS VISIT 1940 DTaP/Tdap/Td Vaccines (1 - Tdap) 1953 DEPRESSION SCREENING 1954 HIV SCREENING 1957 FOOT EXAM 1960 ZOSTER IMMUNIZATION SERIES (1 of 2) 1992 FALL RISK ASSESSMENT 2007 OSTEOPOROSIS SCREENING 2007 PNEUMOCOCCAL 65+YRS (1 of 2 - 2007 PCV13) INFLUENZA VACCINE (#1) 2019 HEPATITIS A IMMUNIZATION SERIES Aged Out No longer eligible based on patient's age to complete this topic HPV IMMUNIZATION SERIES Aged Out No longer eligible based on patient's age to complete this topic MENINGOCOCCAL VACCINE IMM Aged Out No longer eligible based on patient's age to complete this topic documented as of this encounter Results Not on filedocumented in this encounter Visit Diagnoses Diagnosis Stump pain (HCC) Other amputation stump complication BKA stump complication (HCC) Late complications of amputation stump, unspecified History of left below knee amputation (HCC) Lower limb amputation, below knee Atherosclerosis of arteries of extremities (HCC) Atherosclerosis of grindstone arteries of the extremities, unspecified Type 2 diabetes, controlled, with peripheral circulatory disorder (HCC) Type II or unspecified type diabetes mellitus with peripheral circulatory disorders, not stated as uncontrolled documented in this encounter Insurance Payer Benefit Plan / Subscriber ID Effective Dates Phone Address Type Group MEDICARE MEDICARE PART A & [id number] 2007-Present Medicare B [place] [facility] [employer] [id number] 04/20/2007-Present [place] documented as of this encounter
--- NOTE | 2019-10-18 15:57 | UC ---
Skin Complaint HPI - HPI Summary HPI Summary: 79 yo female presents with toe wound. She tells me that about 5 days ago she had her toenails clipped from podiatry and ever since that time has had pain to the end of her RIGHT 2nd toe. Has not noticed any wounds to the area, but has been applying cream and is concerned for infection today. Denies fever, drainage , or swelling. - History of Current Complaint Time Seen by Provider: 10/18/19 15:57 Stated Complaint: TOE COMPLAINT Hx Obtained From: Patient Onset Severity: Mild Current Severity: Mild Pain Intensity: 3 Pain Scale Used: 0-10 Numeric - Allergy/Home Medications Allergies/Adverse Reactions: Allergies Allergy/AdvReac Type Severity Reaction Status Date / Time pregabalin [From Lyrica] Allergy Unknown Verified 10/18/19 15:59 Reaction Details morphine AdvReac Hallucinati Verified 10/18/19 15:59 ons Home Medications: Home Medications Atenolol TAB* [Tenormin TAB* 25 MG] 50 mg PO DAILY 12/24/13 [History Confirmed 10/18/19] Clopidogrel TAB* [Plavix TAB*] 75 mg PO QPM 12/24/13 [History Confirmed 10/18/19 ] Omeprazole CAP (NF) [Prilosec CAP* 20 MG] 20 mg PO QAM PRN 12/24/13 [History Confirmed 10/18/19] Amlodipine Besylate [Norvasc 10 mg tab] 10 mg PO DAILY 06/19/17 [History Confirmed 10/18/19] Aspirin [Aspirin 81 MG TAB] 81 mg PO DAILY 06/19/17 [History Confirmed 10/18/19] Losartan Potassium 100 mg PO DAILY 08/28/17 [History Confirmed 10/18/19] Oxybutynin Chloride [Ditropan Xl] 10 mg PO DAILY 11/14/17 [History Confirmed ] Acetaminophen [Tylenol Extra Strength] 1 - 2 tab PO Q6HR PRN 09/16/19 [History Confirmed 10/18/19] Cholecalciferol TAB* [Vitamin D TAB*] 4,000 units PO DAILY 09/16/19 [History Confirmed 10/18/19] Melatonin 1 mg PO BEDTIME 09/16/19 [History Confirmed 10/18/19] Metformin HCl 500 mg PO DAILY 09/16/19 [History Confirmed 10/18/19] Cephalexin CAP* [Keflex CAP*] 500 mg PO TID #15 cap 10/18/19 [Rx] PMH/Surg Hx/FS Hx/Imm Hx - Additional Past Medical History Additional PMH: PVD Endocrine History: Diabetes Cardiovascular History: Hypertension GI/ History: Gastroesophageal Reflux Other History Of: Negative For: HIV, Hepatitis B, Hepatitis C, Anticoagulant Therapy - Surgical History Surgical History: Yes Surgery Procedure, Year, and Place: LEFT LEG BKA SEPTEMBER 2012 [place]. TONSILLECTOMY A CHILD. BILAT CATARACTS - Family History Known Family History: Positive: Cardiac Disease, Hypertension, Diabetes Negative: Unknown Family History: Cancer - Social History Alcohol Use: Occasionally Alcohol Amount: 1/WEEK Substance Use Type: None Smoking Status (MU): Former Smoker Have You Smoked in the Last Year: No When Did the Patient Quit Smoking/Using Tobacco: 1993 Review of Systems All Other Systems Reviewed And Are Negative: No Constitutional: Positive: Negative Skin: Positive: Other - Toe wound Respiratory: Positive: Negative Cardiovascular: Positive: Negative Neurological/Mental Status: Positive: Negative Psychological: Positive: Negative Physical Exam - Summary Physical Exam Summary: GENERAL: NAD. WDWN. No pain distress. SKIN: RIGHT FOOT: 2nd toe distal end just under the nail there is a 3mm area that appears to be nail matrix. TTP at this area. No erythema, edema, or open wound. CHEST: No accessory muscle use. Breathing comfortably and in no distress. CV: Pulses intact. Cap refill <2seconds NEURO: Alert. PSYCH: Age appropriate behavior. Triage Information Reviewed: Yes Vital Signs: Vital Signs: Temp Pulse Resp BP Pulse Ox 98.7 F 63 15 146/71 99 10/18/19 16:07 10/18/19 16:07 10/18/19 16:07 10/18/19 16:07 10/18/19 16:07 Vital Signs Reviewed: Yes Course/Dx - Course Course Of Treatment: Suspect toenail was cut too short and pt has an area of open skin/nail matrix here. She is very concerned about infection today as she has a hx of amputation. Will rx for keflex and ba. Bandaged with bactroban and telfa today. - Diagnoses Provider Diagnosis: Wound of toenail Discharge ED - Sign-Out/Discharge Documenting (check all that apply): Patient Departure All imaging exams completed and their final reports reviewed: No Studies - Discharge Plan Condition: Stable Disposition: HOME Prescriptions: Cephalexin CAP* [Keflex CAP*] 500 mg PO TID #15 cap Patient Education Materials: Acute Wound Care (ED) Referrals: Ayesha Alberto MD [Primary Care Provider] - Additional Instructions: Change the toe bandage daily and apply the BACTROBAN cream twice a day for 1 week Take the antibiotic as prescribed If you notice a fever, drainage, increased pain or redness - please be rechecked - Billing Disposition and Condition Condition: STABLE Disposition: Home
[2019-10-18 16:08] VITALS: BP 146/71
[2019-10-18] MEDS ORDERED: Mupirocin 2% OINT* TUBE TOPICAL ONE (16:14)
== END 2019-10-18 16:16 | disposition home or self-care (01) ==
LOC: UCEAST 15:50
DX: S91.204A Unspecified open wound of right lesser toe(s) with damage to nail, initial encounter (principal); X58.XXXA Exposure to other specified factors, initial encounter; Y92.9 Unspecified place or not applicable; E11.9 Type 2 diabetes mellitus without complications; Z79.84 Long term (current) use of oral hypoglycemic drugs; I10 Essential (primary) hypertension; K21.9 Gastro-esophageal reflux disease without esophagitis; Z79.82 Long term (current) use of aspirin; Z79.899 Other long term (current) drug therapy; Z89.512 Acquired absence of left leg below knee; Z88.5 Allergy status to narcotic agent; Z88.8 Allergy status to other drugs, medicaments and biological substances; Z87.891 Personal history of nicotine dependence
CPT/HCPCS: 99213; G0463

== ENCOUNTER 2020-11-17 10:57 | Inpatient (IN) ==
[2020-11-17] MEDS ORDERED: Heparin - STEMI 5,000 UNITS/ML 1 ml VIAL IV ONE (11:12)
[2020-11-17] MEDS ORDERED: NITROGLYCERIN ONE (11:13)
[2020-11-17] MEDS ORDERED: Heparin 2 UNITS/ML 1000 mls IV ONE (11:13)
[2020-11-17] MEDS ORDERED: Iohexol 350 (CONTRAST) 200 ML MDV IV ONE (11:13)
[2020-11-17] MEDS ORDERED: Lidocaine 1% VIAL 10 MG/ML VIAL ONE ×2 (11:13→12:50)
[2020-11-17] MEDS ORDERED: VERAPAMIL 2.5 MG/ML 2 ML VIAL ** 5 mg/2 ml ONE (11:13)
[2020-11-17] MEDS ORDERED: Heparin 1,000 UNIT/ML 10 ml (10,000 UNITS) CATHLAB/DIALYSIS ONE (11:13)
[2020-11-17] MEDS ORDERED: nitroGLYCERIN DRIP 100 MCG/ML 250 ML BTL ONE (11:13)
[2020-11-17 11:22] LABS: ABS Basophils 0.1 10^3/ul (0-0.2); ABS Lymphocytes 1.9 10^3/ul (1.0-4.8); ABS Monocytes 0.4 10^3/ul (0-0.8); ABS Neutrophils 9.7 10^3/ul (1.5-7.7); Eosinophil % 0.1 %; Hematocrit 46 % (35-47); Hemoglobin 15.7 g/dL (12.0-16.0); Lymphocyte % 15.8 %; Mean Corpuscular HGB Conc 34 g/dL (31-36); Mean Corpuscular Hemoglobin 32 pg (27-31); Mean Corpuscular Volume 95 fL (80-97); Mean Platelet Volume 7.4 fL (7.4-10.4); Nucleated Red Blood Cells % 0.1; Platelet Count 274 10^3/uL (150-450); Red Blood Count 4.84 10^6 /uL (3.70-4.87); Red Cell Distribution Width 14 % (10-15); White Blood Count 12.1 10^3/uL (3.5-10.8)
[2020-11-17] MEDS ORDERED: Nitro 2% OINT (Nitroglycerin) 1 INCH/PAK ONE (11:24)
[2020-11-17 11:27] LABS: INR 1.02 (0.82-1.09)
[2020-11-17] MEDS ORDERED: diPHENhydraMINE IV 50 MG/ML 1 ml VIAL (BENADRYL) ONE (11:34)
[2020-11-17] MEDS ORDERED: Midazolam 5 mg/5 ml VIAL 1 mg/ml 5 ml VIAL (5 mg) ONE ×2 (11:34→13:50)
[2020-11-17 11:39] LABS: ALT 27 U/L (7-52); AST 72 U/L (13-39); Albumin 4.2 g/dL (3.2-5.2); Albumin/Globulin Ratio 1.3 (1-3); Alkaline Phosphatase 63 U/L (34-104); Anion Gap 12 mmol/L (2-11); Blood Urea Nitrogen 32 mg/dL (6-24); CO2 Carbon Dioxide 17 mmol/L (22-32); Calcium 10.3 mg/dL (8.6-10.3); Chloride 107 mmol/L (101-111); EGFR African American 27.6 (>60); EGFR Non-African American 22.8 (>60); Globulin 3.2 g/dL (2-4); Glucose 268 mg/dL (70-100); Potassium 4.6 mmol/L (3.5-5.0); Sodium 136 mmol/L (135-145); Total Protein 7.4 g/dL (6.4-8.9)
[2020-11-17 11:44] LABS: Troponin I 6.36 ng/mL (<0.03)
[2020-11-17] MEDS ORDERED: nitroGLYCERIN DRIP 25,000 MCG/250 ML BTL ONE (11:54)
[2020-11-17] MEDS ORDERED: Heparin 2 UNITS/ML 1000 mls 0 ML IV ONE (11:59)
[2020-11-17] MEDS ORDERED: Heparin 5000 UNITS/ML 1 mL VIAL IV ONE (12:00)
[2020-11-17] MEDS ORDERED: Bivalirudin 250 MG VIAL ONE ×2 (12:02→14:30)
[2020-11-17] MEDS ORDERED: Ondansetron 4 mg VIAL 2 MG/ML 2 ml VIAL ONE ×2 (12:27→13:54)
[2020-11-17] MEDS ORDERED: fentaNYL 100 mcg/2 ml 50 MCG/ML VIAL ONE (13:18)
[2020-11-17] MEDS ORDERED: Iodixanol 320 (CONTRAST) 100 ML SDV ONE (13:20)
[2020-11-17] MEDS ORDERED: Norepinephrine 16MCG/ML IVPRE 0 MCG/0 ML BAG IV ONE (13:32)
[2020-11-17] MEDS ORDERED: Prochlorperazine 5 mg/ml 2 ml VIAL (10 mg) ONE (13:58)
[2020-11-17] MEDS ORDERED: HYDROmorphone 1 MG/1 ML SYRINGE ONE (14:04)
[2020-11-17 14:29] LABS: ABS Basophils 0.1 10^3/ul (0-0.2); ABS Monocytes 0.6 10^3/ul (0-0.8); ABS Neutrophils 12.5 10^3/ul (1.5-7.7); Hematocrit 38 % (35-47); Hemoglobin 12.8 g/dL (12.0-16.0); Lymphocyte % 13.4 %; Mean Corpuscular HGB Conc 34 g/dL (31-36); Mean Corpuscular Hemoglobin 32 pg (27-31); Mean Corpuscular Volume 95 fL (80-97); Mean Platelet Volume 7.3 fL (7.4-10.4); Platelet Count 265 10^3/uL (150-450); Red Blood Count 3.96 10^6 /uL (3.70-4.87); Red Cell Distribution Width 13 % (10-15); White Blood Count 15.2 10^3/uL (3.5-10.8)
[2020-11-17] MEDS ORDERED: NS 0.9% 1000 ml BAG 1,000 ML IV SCH (15:00)
[2020-11-17] MEDS ORDERED: Perflutren Lipid Microsphere 3 ML VIAL ONE (15:14)
[2020-11-17 16:36] LABS: Troponin I > 79.00 ng/mL (<0.03)
[2020-11-17] MEDS ORDERED: Dextrose 50% Syringe 50 ml 25 GM/50 ML SYRINGE IV PUSH PRN (18:50)
[2020-11-17 23:09] LABS: CKMB ng/mL > 300.0 ng/mL (0.6-6.3)
[2020-11-17 23:10] LABS: Creatine Kinase 3611 U/L (10-223)
[2020-11-18 03:52] LABS: CKMB ng/mL 274.1 ng/mL (0.6-6.3)
[2020-11-18 06:21] LABS: ABS Lymphocytes 2.2 10^3/ul (1.0-4.8); ABS Monocytes 1.4 10^3/ul (0-0.8); ABS Neutrophils 9.6 10^3/ul (1.5-7.7); Eosinophil % 0.1 %; Hematocrit 31 % (35-47); Hemoglobin 10.5 g/dL (12.0-16.0); Lymphocyte % 16.7 %; Mean Corpuscular HGB Conc 34 g/dL (31-36); Mean Corpuscular Hemoglobin 32 pg (27-31); Mean Corpuscular Volume 96 fL (80-97); Platelet Count 212 10^3/uL (150-450); Red Blood Count 3.26 10^6 /uL (3.70-4.87); Red Cell Distribution Width 14 % (10-15); White Blood Count 13.3 10^3/uL (3.5-10.8)
[2020-11-18 06:38] LABS: Calcium 9.1 mg/dL (8.6-10.3); EGFR African American 26.4 (>60); EGFR Non-African American 21.8 (>60); HDL Cholesterol 30.6 mg/dL; Magnesium 1.8 mg/dL (1.9-2.7); Phosphorus 3.5 mg/dL (2.5-5.0); Potassium 4.5 mmol/L (3.5-5.0)
[2020-11-18] MEDS ORDERED: Magnesium Sulfate 2 gm BAG 2 GM/50 ML BAG IVPB ONE (07:12)
[2020-11-19 05:21] LABS: Hematocrit 27 % (35-47); Hemoglobin 9.2 g/dL (12.0-16.0); Mean Corpuscular HGB Conc 35 g/dL (31-36); Mean Corpuscular Hemoglobin 33 pg (27-31); Mean Corpuscular Volume 96 fL (80-97); Mean Platelet Volume 7.7 fL (7.4-10.4); Platelet Count 161 10^3/uL (150-450); Red Blood Count 2.78 10^6 /uL (3.70-4.87); Red Cell Distribution Width 14 % (10-15); White Blood Count 10.7 10^3/uL (3.5-10.8)
[2020-11-19 05:35] LABS: Calcium 9.1 mg/dL (8.6-10.3); EGFR African American 26.3 (>60); EGFR Non-African American 21.7 (>60); Magnesium 2.4 mg/dL (1.9-2.7); Phosphorus 3.2 mg/dL (2.5-5.0); Potassium 4.3 mmol/L (3.5-5.0)
[2020-11-19] MEDS: CMCS:Prasugrel 10 mg TAB (NF) PO SCH (08:22)
[2020-11-19] MEDS ORDERED: Furosemide 40 mg/4 ml IV VIAL IV ONE (11:30)
[2020-11-20 04:42] LABS: Hematocrit 24 % (35-47); Hemoglobin 8.1 g/dL (12.0-16.0); Mean Corpuscular HGB Conc 35 g/dL (31-36); Mean Corpuscular Hemoglobin 33 pg (27-31); Mean Corpuscular Volume 95 fL (80-97); Mean Platelet Volume 8.1 fL (7.4-10.4); Platelet Count 147 10^3/uL (150-450); Red Blood Count 2.48 10^6 /uL (3.70-4.87); Red Cell Distribution Width 13 % (10-15); White Blood Count 10.8 10^3/uL (3.5-10.8)
[2020-11-20 05:03] LABS: Calcium 8.8 mg/dL (8.6-10.3); EGFR African American 24.4 (>60); EGFR Non-African American 20.2 (>60); Magnesium 2.2 mg/dL (1.9-2.7); Phosphorus 2.7 mg/dL (2.5-5.0); Potassium 4.3 mmol/L (3.5-5.0)
[2020-11-20 09:28] LABS: Hematocrit 24 % (35-47); Hemoglobin 8.2 g/dL (12.0-16.0); Mean Corpuscular HGB Conc 34 g/dL (31-36); Mean Corpuscular Hemoglobin 33 pg (27-31); Mean Corpuscular Volume 96 fL (80-97); Mean Platelet Volume 7.9 fL (7.4-10.4); Platelet Count 153 10^3/uL (150-450); Red Cell Distribution Width 13 % (10-15); White Blood Count 10.3 10^3/uL (3.5-10.8)
[2020-11-20] MEDS: CMCS:Prasugrel 10 mg TAB (NF) PO SCH (10:29)
[2020-11-20 12:41] LABS: Hematocrit 25 % (35-47); Hemoglobin 8.5 g/dL (12.0-16.0)
[2020-11-20] MEDS ORDERED: Thrombin 5,000 UNITS(BOVINE) for Ultrasound Guided Pseudoaneursym ONE (16:00)
[2020-11-20 16:31] LABS: INR 1.4 (0.82-1.09)
[2020-11-20 19:02] LABS: Hematocrit 24 % (35-47)
[2020-11-21 00:30] LABS: Hematocrit 24 % (35-47); Hemoglobin 8.1 g/dL (12.0-16.0)
[2020-11-21 05:42] LABS: ABS Basophils 0.1 10^3/ul (0-0.2); ABS Eosinophils 0.2 10^3/ul (0-0.6); ABS Lymphocytes 1.8 10^3/ul (1.0-4.8); ABS Monocytes 0.8 10^3/ul (0-0.8); ABS Neutrophils 6.7 10^3/ul (1.5-7.7); Eosinophil % 2.2 %; Hematocrit 24 % (35-47); Hemoglobin 8.2 g/dL (12.0-16.0); Mean Corpuscular HGB Conc 34 g/dL (31-36); Mean Corpuscular Hemoglobin 33 pg (27-31); Mean Corpuscular Volume 96 fL (80-97); Mean Platelet Volume 8.3 fL (7.4-10.4); Nucleated Red Blood Cells % 0.1; Platelet Count 171 10^3/uL (150-450); Red Blood Count 2.52 10^6 /uL (3.70-4.87); Red Cell Distribution Width 14 % (10-15); White Blood Count 9.6 10^3/uL (3.5-10.8)
[2020-11-21 06:00] LABS: Calcium 8.7 mg/dL (8.6-10.3); EGFR African American 24.3 (>60); EGFR Non-African American 20.1 (>60); Potassium 4.3 mmol/L (3.5-5.0)
[2020-11-21] MEDS: CMCS:Prasugrel 10 mg TAB (NF) PO SCH (08:42)
[2020-11-21] MEDS ORDERED: Iron Sucrose 200 MG in NS 0.9% 100 ml BAG 100 ML IVPB ONE (11:48)
[2020-11-21] MEDS ORDERED: Senna TAB 8.6 mg TAB PO PRN (13:17)
[2020-11-21] MEDS ORDERED: Magnesium Hydroxide LIQ 30 ML UDC PO PRN (13:17)
[2020-11-21] MEDS ORDERED: Polyethylene Glycol 3350 17 GM PACKET PO PRN (13:17)
[2020-11-21] MEDS ORDERED: Thrombin 5,000 UNITS(BOVINE) for Ultrasound Guided Pseudoaneursym ONE (15:30)
[2020-11-21] MEDS ORDERED: fentaNYL 100 mcg/2 ml 50 MCG/ML VIAL ONE (15:36)
[2020-11-22 07:09] LABS: ABS Eosinophils 0.3 10^3/ul (0-0.6); ABS Lymphocytes 1.6 10^3/ul (1.0-4.8); ABS Neutrophils 6.5 10^3/ul (1.5-7.7); Hematocrit 23 % (35-47); Mean Corpuscular HGB Conc 34 g/dL (31-36); Mean Corpuscular Hemoglobin 33 pg (27-31); Mean Corpuscular Volume 97 fL (80-97); Mean Platelet Volume 8.1 fL (7.4-10.4); Nucleated Red Blood Cells % 0.1; Platelet Count 204 10^3/uL (150-450); Red Blood Count 2.42 10^6 /uL (3.70-4.87); Red Cell Distribution Width 14 % (10-15); White Blood Count 9.4 10^3/uL (3.5-10.8)
[2020-11-22 07:29] LABS: Calcium 8.7 mg/dL (8.6-10.3); EGFR Non-African American 21.5 (>60); Potassium 4.4 mmol/L (3.5-5.0)
[2020-11-22] MEDS: CMCS:Prasugrel 10 mg TAB (NF) PO SCH (10:14)
[2020-11-23 05:52] LABS: Hematocrit 25 % (35-47); Hemoglobin 8.4 g/dL (12.0-16.0); Mean Corpuscular HGB Conc 34 g/dL (31-36); Mean Corpuscular Hemoglobin 33 pg (27-31); Mean Corpuscular Volume 97 fL (80-97); Mean Platelet Volume 7.9 fL (7.4-10.4); Platelet Count 212 10^3/uL (150-450); Red Blood Count 2.55 10^6 /uL (3.70-4.87); Red Cell Distribution Width 14 % (10-15); White Blood Count 11.3 10^3/uL (3.5-10.8)
[2020-11-23] MEDS: CMCS:Prasugrel 10 mg TAB (NF) PO SCH (08:07)
[2020-11-24 07:40] LABS: ABS Eosinophils 0.3 10^3/ul (0-0.6); ABS Lymphocytes 1.6 10^3/ul (1.0-4.8); ABS Neutrophils 5.8 10^3/ul (1.5-7.7); Eosinophil % 3.1 %; Hematocrit 23 % (35-47); Hemoglobin 7.9 g/dL (12.0-16.0); Lymphocyte % 18.6 %; Mean Corpuscular HGB Conc 34 g/dL (31-36); Mean Corpuscular Hemoglobin 33 pg (27-31); Mean Corpuscular Volume 95 fL (80-97); Mean Platelet Volume 7.8 fL (7.4-10.4); Platelet Count 232 10^3/uL (150-450); Red Cell Distribution Width 13 % (10-15); White Blood Count 8.8 10^3/uL (3.5-10.8)
[2020-11-24 08:17] VITALS: BP 128/51
[2020-11-24] MEDS: CMCS:Prasugrel 10 mg TAB (NF) PO SCH (09:01)
== END 2020-11-24 11:26 | DRG 246 ==
LOC: ED 10:57 → CHICATH 11:28 → ICU 14:57 → MEDTELE 11-18 16:32 → PMRU 11-24 11:39
PROVIDERS: ADMIT Internal Medicine Cardiovascular Disease; ATTEND Internal Medicine

== ENCOUNTER 2020-11-28 12:30 | Observation (INO) ==
[2020-11-28] MEDS ORDERED: Senna TAB 8.6 mg TAB PO PRN (13:09)
[2020-11-28] MEDS ORDERED: Dextrose 50% Syringe 50 ml 25 GM/50 ML SYRINGE IV PUSH PRN (13:11)
[2020-11-28] MEDS ORDERED: Perflutren Lipid Microsphere 3 ML VIAL ONE ×2 (14:40→15:35)
[2020-11-28 15:34] LABS: Troponin I 0.81 ng/mL (<0.03)
[2020-11-28] MEDS: Aspirin EC 81 mg TAB.EC (enteric coated) PO SCH (18:04)
[2020-11-29 05:41] LABS: ABS Eosinophils 0.2 10^3/ul (0-0.6); ABS Lymphocytes 1.8 10^3/ul (1.0-4.8); ABS Monocytes 0.6 10^3/ul (0-0.8); ABS Neutrophils 4.7 10^3/ul (1.5-7.7); Eosinophil % 3.2 %; Hematocrit 25 % (35-47); Hemoglobin 8.5 g/dL (12.0-16.0); Lymphocyte % 24.8 %; Mean Corpuscular HGB Conc 34 g/dL (31-36); Mean Corpuscular Hemoglobin 32 pg (27-31); Mean Corpuscular Volume 96 fL (80-97); Mean Platelet Volume 6.6 fL (7.4-10.4); Platelet Count 322 10^3/uL (150-450); Red Blood Count 2.66 10^6 /uL (3.70-4.87); Red Cell Distribution Width 14 % (10-15); White Blood Count 7.4 10^3/uL (3.5-10.8)
[2020-11-29 05:56] LABS: Albumin 3.1 g/dL (3.2-5.2); Calcium 9.2 mg/dL (8.6-10.3); Potassium 4.8 mmol/L (3.5-5.0); Total Bilirubin 0.5 mg/dL (0.2-1.0)
[2020-11-29 06:02] LABS: Albumin/Globulin Ratio 1.1 (1-3); EGFR African American 29.2 (>60); EGFR Non-African American 24.1 (>60); Globulin 2.7 g/dL (2-4); Total Protein 5.8 g/dL (6.4-8.9)
[2020-11-29] MEDS: CMC:Prasugrel 10 mg TAB (NF) PO SCH (10:03)
[2020-11-29 10:28] LABS: C Reactive Protein 16.51 mg/L (<8.01)
[2020-11-29] MEDS ORDERED: Furosemide 40 mg/4 ml IV VIAL IV ONE ×2 (10:33)
[2020-11-29] MEDS: CMCS: Ranolazine 500 mg TAB (NF) PO SCH ×2 (10:39→20:37)
[2020-11-29 12:04] LABS: Erythrocyte Sed Rate 66 mm/Hr (0-29)
[2020-11-29] MEDS: Aspirin EC 81 mg TAB.EC (enteric coated) PO SCH (18:11)
[2020-11-30 05:19] LABS: ABS Eosinophils 0.3 10^3/ul (0-0.6); ABS Lymphocytes 2.2 10^3/ul (1.0-4.8); ABS Monocytes 0.6 10^3/ul (0-0.8); ABS Neutrophils 4.5 10^3/ul (1.5-7.7); Eosinophil % 3.7 %; Hematocrit 26 % (35-47); Hemoglobin 9.1 g/dL (12.0-16.0); Lymphocyte % 28.8 %; Mean Corpuscular HGB Conc 34 g/dL (31-36); Mean Corpuscular Hemoglobin 33 pg (27-31); Mean Corpuscular Volume 95 fL (80-97); Mean Platelet Volume 6.6 fL (7.4-10.4); Platelet Count 307 10^3/uL (150-450); Red Blood Count 2.78 10^6 /uL (3.70-4.87); Red Cell Distribution Width 14 % (10-15); White Blood Count 7.5 10^3/uL (3.5-10.8)
[2020-11-30 05:36] LABS: Calcium 9.2 mg/dL (8.6-10.3); EGFR African American 26.7 (>60); Magnesium 1.8 mg/dL (1.9-2.7); Potassium 4.6 mmol/L (3.5-5.0)
[2020-11-30] MEDS: CMC:Prasugrel 10 mg TAB (NF) PO SCH (09:09)
[2020-11-30] MEDS: CMCS: Ranolazine 500 mg TAB (NF) PO SCH (09:09)
[2020-11-30] MEDS ORDERED: Magnesium Sulfate 2 gm BAG 2 GM/50 ML BAG IVPB ONE (09:31)
[2020-11-30 09:51] VITALS: BP 139/58
== END 2020-11-30 10:15 ==
LOC: MEDTELE
PROVIDERS: ADMIT Internal Medicine; ATTEND Student in an Organized Health Care Education/Training Program

== ENCOUNTER 2020-11-30 11:59 | Inpatient (IN) ==
[2020-11-30] MEDS ORDERED: Senna TAB 8.6 mg TAB PO PRN (12:44)
[2020-11-30] MEDS ORDERED: Polyethylene Glycol 3350 17 GM PACKET PO PRN (13:32)
[2020-11-30] MEDS ORDERED: Dextrose 50% Syringe 50 ml 25 GM/50 ML SYRINGE IV PUSH PRN (13:34)
[2020-11-30] MEDS: RANOLAZINE 500 MG PO SCH (20:12)
[2020-12-01 06:43] VITALS: BP 143/58
[2020-12-01 07:16] LABS: ABS Basophils 0.1 10^3/ul (0-0.2); ABS Eosinophils 0.2 10^3/ul (0-0.6); ABS Lymphocytes 1.5 10^3/ul (1.0-4.8); ABS Monocytes 0.6 10^3/ul (0-0.8); ABS Neutrophils 5.7 10^3/ul (1.5-7.7); Eosinophil % 2.9 %; Hematocrit 27 % (35-47); Hemoglobin 9.3 g/dL (12.0-16.0); Lymphocyte % 18.4 %; Mean Corpuscular HGB Conc 35 g/dL (31-36); Mean Corpuscular Hemoglobin 33 pg (27-31); Mean Corpuscular Volume 95 fL (80-97); Mean Platelet Volume 6.7 fL (7.4-10.4); Platelet Count 313 10^3/uL (150-450); Red Blood Count 2.83 10^6 /uL (3.70-4.87); Red Cell Distribution Width 14 % (10-15)
[2020-12-01 07:28] LABS: Albumin 3.4 g/dL (3.2-5.2); Albumin/Globulin Ratio 1.2 (1-3); Calcium 9.6 mg/dL (8.6-10.3); EGFR African American 25.1 (>60); EGFR Non-African American 20.7 (>60); Globulin 2.8 g/dL (2-4); Total Bilirubin 0.6 mg/dL (0.2-1.0); Total Protein 6.2 g/dL (6.4-8.9)
[2020-12-01 07:53] LABS: Potassium 5.1 mmol/L (3.5-5.0)
[2020-12-01] MEDS ORDERED: AZITHROMYCIN 500 MG TAB PO ONE (08:30)
[2020-12-01] MEDS ORDERED: CMC:Prasugrel 10 mg TAB (NF) PO SCH (09:00)
[2020-12-01] MEDS ORDERED: Aspirin EC 81 mg TAB.EC (enteric coated) PO SCH (09:00)
[2020-12-01] MEDS: RANOLAZINE 500 MG PO SCH (09:11)
== END 2020-12-01 14:30 | disposition home health service (06) | DRG 280 ==
LOC: PMRU 11:59
PROVIDERS: ADMIT Physical Medicine & Rehabilitation; ATTEND Physical Medicine & Rehabilitation

== ENCOUNTER 2020-12-15 06:25 | Inpatient (IN) ==
[2020-12-15] MEDS ORDERED: Furosemide 40 mg/4 ml IV VIAL IV ONE ×2 (06:38→13:00)
[2020-12-15 07:08] LABS: Hematocrit 40 % (35-47); Hemoglobin 12.9 g/dL (12.0-16.0); Mean Corpuscular HGB Conc 33 g/dL (31-36); Mean Corpuscular Hemoglobin 32 pg (27-31); Mean Corpuscular Volume 100 fL (80-97); Mean Platelet Volume 8.1 fL (7.4-10.4); Platelet Count 244 10^3/uL (150-450); Red Cell Distribution Width 16 % (10-15); White Blood Count 12.8 10^3/uL (3.5-10.8)
[2020-12-15 07:15] LABS: Activated Partial Thrombo Time 22.7 seconds (26.0-38.0); INR 1.12 (0.82-1.09)
[2020-12-15 07:24] LABS: CO2 Carbon Dioxide 15 mmol/L (22-32); Calcium 9.1 mg/dL (8.6-10.3); Chloride 109 mmol/L (101-111); Sodium 137 mmol/L (135-145)
[2020-12-15 07:30] LABS: ALT 14 U/L (7-52); Albumin/Globulin Ratio 1.3 (1-3); Alkaline Phosphatase 64 U/L (35-149); Blood Urea Nitrogen 25 mg/dL (6-24); EGFR Non-African American 19.8 (>60); Globulin 3.1 g/dL (2-4); Glucose 265 mg/dL (70-100); Total Protein 7.1 g/dL (6.4-8.9)
[2020-12-15 07:35] LABS: ABS Basophils 0.1 10^3/ul (0-0.2); ABS Eosinophils 0.6 10^3/ul (0-0.6); ABS Lymphocytes 6.1 10^3/ul (1.0-4.8); ABS Neutrophils 5.1 10^3/ul (1.5-7.7); Eosinophil % 4.5 %; Lymphocyte % 47.4 %; Nucleated Red Blood Cells % 0.1
[2020-12-15 07:39] LABS: Troponin I 0.07 ng/mL (<0.03)
[2020-12-15 07:53] LABS: AST 16 U/L (13-39); Anion Gap 13 mmol/L (2-11); Potassium 4.6 mmol/L (3.5-5.0)
[2020-12-15 08:10] LABS: Magnesium 1.9 mg/dL (1.9-2.7)
[2020-12-15] MEDS ORDERED: Levofloxacin 750 MG IVPREMIX 750 MG/150 ML BAG IVPB ONE (08:15)
[2020-12-15] MEDS ORDERED: Cefepime 2 GM in NS 0.9% 50 ML 50 ML IVPB ONE (08:15)
[2020-12-15] MEDS ORDERED: NS 0.9% 50 ML 50 ML ONE (08:47)
[2020-12-15] MEDS ORDERED: Cefepime 2 GM in Dextrose 2 GM/50 ML BAG IV ONE (09:00)
[2020-12-15] MEDS ORDERED: Buffered Lidocaine 1% SYRIN 1 ml INTRADERM ONE (10:10)
[2020-12-15 10:21] LABS: Troponin I 0.74 ng/mL (<0.03)
[2020-12-15] MEDS ORDERED: Senna TAB 8.6 mg TAB PO PRN (11:27)
[2020-12-15] MEDS ORDERED: Perflutren Lipid Microsphere 3 ML VIAL ONE (11:32)
[2020-12-15] MEDS ORDERED: Dextrose 50% Syringe 50 ml 25 GM/50 ML SYRINGE IV PUSH PRN (11:33)
[2020-12-15] MEDS: Aspirin EC 81 mg TAB.EC (enteric coated) PO SCH (12:19)
[2020-12-15] MEDS: CMCS:Prasugrel 10 mg TAB (NF) PO SCH (12:55)
[2020-12-15] MEDS: Isosorbide Mononit ER 30mg TAB PO SCH (13:42)
[2020-12-15] MEDS: Heparin 5000 UNITS/ML 1 mL VIAL SUBCUT SCH ×2 (13:42→20:15)
[2020-12-15 14:39] LABS: Troponin I 1.66 ng/mL (<0.03)
[2020-12-15 16:34] LABS: C Reactive Protein < 1.00 mg/L (<8.01)
[2020-12-15 18:07] LABS: Troponin I 2.15 ng/mL (<0.03)
[2020-12-15] MEDS: Saline FLUSH-CENTRAL 10 ML SYRINGE CENT\\PICC SCH (18:29)
[2020-12-15 23:32] LABS: Troponin I 1.65 ng/mL (<0.03)
[2020-12-16 05:22] LABS: ABS Basophils 0.1 10^3/ul (0-0.2); ABS Eosinophils 0.2 10^3/ul (0-0.6); ABS Lymphocytes 2.6 10^3/ul (1.0-4.8); ABS Monocytes 0.7 10^3/ul (0-0.8); ABS Neutrophils 3.3 10^3/ul (1.5-7.7); Eosinophil % 3.6 %; Hematocrit 31 % (35-47); Hemoglobin 10.4 g/dL (12.0-16.0); Lymphocyte % 37.5 %; Mean Corpuscular HGB Conc 34 g/dL (31-36); Mean Corpuscular Hemoglobin 33 pg (27-31); Mean Corpuscular Volume 96 fL (80-97); Mean Platelet Volume 7.8 fL (7.4-10.4); Platelet Count 161 10^3/uL (150-450); Red Blood Count 3.17 10^6 /uL (3.70-4.87); Red Cell Distribution Width 16 % (10-15); White Blood Count 6.8 10^3/uL (3.5-10.8)
[2020-12-16 05:37] LABS: Anion Gap 6 mmol/L (2-11); Blood Urea Nitrogen 32 mg/dL (6-24); CO2 Carbon Dioxide 22 mmol/L (22-32); Calcium 9.1 mg/dL (8.6-10.3); Chloride 109 mmol/L (101-111); EGFR African American 22.3 (>60); EGFR Non-African American 18.5 (>60); Glucose 122 mg/dL (70-100); Magnesium 1.9 mg/dL (1.9-2.7); Phosphorus 4.1 mg/dL (2.5-5.0); Potassium 4.3 mmol/L (3.5-5.0); Sodium 137 mmol/L (135-145)
[2020-12-16 05:43] LABS: Troponin I 0.94 ng/mL (<0.03)
[2020-12-16] MEDS: Heparin 5000 UNITS/ML 1 mL VIAL SUBCUT SCH ×3 (06:20→21:04)
[2020-12-16] MEDS: Saline FLUSH-CENTRAL 10 ML SYRINGE CENT\\PICC SCH ×2 (07:44→18:12)
[2020-12-16] MEDS: CMCS:Prasugrel 10 mg TAB (NF) PO SCH (09:44)
[2020-12-16] MEDS: Isosorbide Mononit ER 30mg TAB PO SCH (09:44)
[2020-12-16] MEDS: Aspirin EC 81 mg TAB.EC (enteric coated) PO SCH (09:44)
[2020-12-17] MEDS: Heparin 5000 UNITS/ML 1 mL VIAL SUBCUT SCH (05:30)
[2020-12-17] MEDS: Saline FLUSH-CENTRAL 10 ML SYRINGE CENT\\PICC SCH ×2 (05:39→17:04)
[2020-12-17 05:42] LABS: ABS Basophils 0.1 10^3/ul (0-0.2); ABS Eosinophils 0.3 10^3/ul (0-0.6); ABS Lymphocytes 1.8 10^3/ul (1.0-4.8); ABS Monocytes 0.5 10^3/ul (0-0.8); ABS Neutrophils 2.9 10^3/ul (1.5-7.7); Eosinophil % 5.4 %; Hematocrit 31 % (35-47); Hemoglobin 10.4 g/dL (12.0-16.0); Mean Corpuscular HGB Conc 34 g/dL (31-36); Mean Corpuscular Hemoglobin 33 pg (27-31); Mean Corpuscular Volume 97 fL (80-97); Mean Platelet Volume 7.7 fL (7.4-10.4); Platelet Count 149 10^3/uL (150-450); Red Cell Distribution Width 15 % (10-15); White Blood Count 5.6 10^3/uL (3.5-10.8)
[2020-12-17 05:59] LABS: Calcium 9.1 mg/dL (8.6-10.3); EGFR African American 24.8 (>60); EGFR Non-African American 20.5 (>60); Magnesium 1.9 mg/dL (1.9-2.7); Potassium 4.6 mmol/L (3.5-5.0)
[2020-12-17] MEDS: Aspirin EC 81 mg TAB.EC (enteric coated) PO SCH (09:27)
[2020-12-17] MEDS: Isosorbide Mononit ER 30mg TAB PO SCH (09:27)
[2020-12-17] MEDS: CMCS:Prasugrel 10 mg TAB (NF) PO SCH (09:27)
[2020-12-17 10:54] LABS: % Iron Saturation 24 % (15-55); Iron 77 ug/dL (50-212); Total Iron Binding Capacity 315 mcg/dL (250-450); Transferrin 225 mg/dL (203-362); Unsaturated Iron Binding < 300 ug/dL
[2020-12-17 11:14] LABS: Ferritin 83.8 ng/mL (11-307)
[2020-12-17] MEDS: Enoxaparin 30 MG/0.3 ML SYR SUBCUT SCH (13:08)
[2020-12-18] MEDS: Saline FLUSH-CENTRAL 10 ML SYRINGE CENT\\PICC SCH ×2 (07:00→20:10)
[2020-12-18 07:18] LABS: ABS Basophils 0.1 10^3/ul (0-0.2); ABS Eosinophils 0.3 10^3/ul (0-0.6); ABS Lymphocytes 1.7 10^3/ul (1.0-4.8); ABS Monocytes 0.5 10^3/ul (0-0.8); ABS Neutrophils 2.7 10^3/ul (1.5-7.7); Eosinophil % 5.9 %; Hematocrit 31 % (35-47); Hemoglobin 10.3 g/dL (12.0-16.0); Lymphocyte % 31.5 %; Mean Corpuscular HGB Conc 34 g/dL (31-36); Mean Corpuscular Hemoglobin 33 pg (27-31); Mean Corpuscular Volume 98 fL (80-97); Mean Platelet Volume 8.4 fL (7.4-10.4); Nucleated Red Blood Cells % 0.1; Platelet Count 151 10^3/uL (150-450); Red Blood Count 3.14 10^6 /uL (3.70-4.87); Red Cell Distribution Width 16 % (10-15); White Blood Count 5.3 10^3/uL (3.5-10.8)
[2020-12-18 07:34] LABS: Calcium 9.1 mg/dL (8.6-10.3); EGFR African American 24.8 (>60); EGFR Non-African American 20.5 (>60); Magnesium 1.8 mg/dL (1.9-2.7); Potassium 4.7 mmol/L (3.5-5.0)
[2020-12-18] MEDS ORDERED: Magnesium Sulfate IV 1GM/100ML 1 GM/100 ML BAG IV ONE (09:05)
[2020-12-18] MEDS: Aspirin EC 81 mg TAB.EC (enteric coated) PO SCH (09:26)
[2020-12-18] MEDS: CMCS:Prasugrel 10 mg TAB (NF) PO SCH (09:26)
[2020-12-18] MEDS: Isosorbide Mononit ER 30mg TAB PO SCH (09:26)
[2020-12-18] MEDS: Enoxaparin 30 MG/0.3 ML SYR SUBCUT SCH (14:21)
[2020-12-19] MEDS: Saline FLUSH-CENTRAL 10 ML SYRINGE CENT\\PICC SCH ×2 (08:14→20:47)
[2020-12-19] MEDS: Isosorbide Mononit ER 30mg TAB PO SCH (08:45)
[2020-12-19] MEDS: Aspirin EC 81 mg TAB.EC (enteric coated) PO SCH (08:45)
[2020-12-19] MEDS: CMCS:Prasugrel 10 mg TAB (NF) PO SCH (08:47)
[2020-12-19] MEDS: Enoxaparin 30 MG/0.3 ML SYR SUBCUT SCH (13:24)
[2020-12-20 05:56] LABS: ABS Basophils 0.1 10^3/ul (0-0.2); ABS Eosinophils 0.4 10^3/ul (0-0.6); ABS Lymphocytes 2.1 10^3/ul (1.0-4.8); ABS Monocytes 0.6 10^3/ul (0-0.8); ABS Neutrophils 2.8 10^3/ul (1.5-7.7); Eosinophil % 6.2 %; Hematocrit 33 % (35-47); Hemoglobin 10.9 g/dL (12.0-16.0); Lymphocyte % 35.1 %; Mean Corpuscular HGB Conc 33 g/dL (31-36); Mean Corpuscular Hemoglobin 32 pg (27-31); Mean Corpuscular Volume 98 fL (80-97); Mean Platelet Volume 7.9 fL (7.4-10.4); Nucleated Red Blood Cells % 0.2; Platelet Count 157 10^3/uL (150-450); Red Blood Count 3.38 10^6 /uL (3.70-4.87); Red Cell Distribution Width 15 % (10-15); White Blood Count 5.9 10^3/uL (3.5-10.8)
[2020-12-20 06:08] LABS: Calcium 9.3 mg/dL (8.6-10.3); Magnesium 2.1 mg/dL (1.9-2.7); Potassium 4.9 mmol/L (3.5-5.0)
[2020-12-20] MEDS: Saline FLUSH-CENTRAL 10 ML SYRINGE CENT\\PICC SCH (06:19)
[2020-12-20 08:01] LABS: EGFR African American 26.7 (>60)
[2020-12-20] MEDS: Isosorbide Mononit ER 30mg TAB PO SCH (08:57)
[2020-12-20] MEDS: Aspirin EC 81 mg TAB.EC (enteric coated) PO SCH (08:58)
[2020-12-20] MEDS: CMCS:Prasugrel 10 mg TAB (NF) PO SCH (09:04)
[2020-12-20 12:01] VITALS: BP 128/73
== END 2020-12-20 14:15 | disposition home or self-care (01) | DRG 871 ==
LOC: ED 06:25 → ICU 08:36 → MEDTELE 12-16 12:26
PROVIDERS: ADMIT Internal Medicine; ATTEND Hospitalist

== ENCOUNTER 2022-04-28 09:36 | Inpatient (IN) ==
[2022-04-28] MEDS ORDERED: Albuterol/Ipratropium NEB.SOL (2.5/0.5 MG) 3 ML NEB.SOLN INH ONE (10:03)
[2022-04-28 11:08] LABS: Hematocrit 28 % (35-47); Hemoglobin 8.8 g/dL (12.0-16.0); Mean Corpuscular HGB Conc 32 g/dL (31-36); Mean Corpuscular Hemoglobin 28 pg (27-31); Mean Corpuscular Volume 87 fL (80-97); Mean Platelet Volume 6.7 fL (7.4-10.4); Platelet Count 456 10^3/uL (150-450); Red Blood Count 3.18 10^6 /uL (3.70-4.87); Red Cell Distribution Width 14 % (10-15); White Blood Count 12.3 10^3/uL (3.5-10.8)
[2022-04-28 11:24] LABS: INR 1.35 (0.89-1.11)
[2022-04-28 11:42] LABS: ALT 14 U/L (7-52); AST 21 U/L (13-39); Albumin 2.9 g/dL (3.2-5.2); Alkaline Phosphatase 65 U/L (35-149); Blood Urea Nitrogen 48 mg/dL (6-24); CO2 Carbon Dioxide 16 mmol/L (22-32); Calcium 9.3 mg/dL (8.6-10.3); Chloride 108 mmol/L (101-111); Globulin 2.9 g/dL (2-4); Glucose 103 mg/dL (70-100); Sodium 137 mmol/L (135-145); Total Protein 5.8 g/dL (6.4-8.9)
[2022-04-28 11:43] LABS: ABS Eosinophils 0.2 10^3/ul (0-0.6); ABS Lymphocytes 1.4 10^3/ul (1.0-4.8); ABS Monocytes 1.2 10^3/ul (0-0.8); ABS Neutrophils 9.5 10^3/ul (1.5-7.7); Anion Gap 13 mmol/L (2-11); Eosinophil % 1.6 %; Lymphocyte % 11.7 %; Potassium 5.4 mmol/L (3.5-5.0)
[2022-04-28 11:58] LABS: Lipase 58 U/L (11.0-82.0); Magnesium 1.8 mg/dL (1.9-2.7)
[2022-04-28] MEDS ORDERED: Dexamethasone IV 4 MG/ML VIAL 1 ml VIAL IV SLOW PU ONE (13:29)
[2022-04-28] MEDS ORDERED: Remdesivir 100 mg Vial 200 MG in NS 0.9% 250 ml 210 ML IV ONE (13:40)
[2022-04-28] MEDS ORDERED: Albuterol HFA INHALER 8 gm MDI INH PRN (14:38)
[2022-04-28] MEDS ORDERED: Dextrose 50% Syringe 50 ml 25 GM/50 ML SYRINGE IV PUSH PRN (14:43)
[2022-04-28] MEDS ORDERED: Heparin DRIP 25,000 UNITS BAG 25,000 UNITS/500 ML BAG IV SCH (14:45)
[2022-04-28] MEDS ORDERED: Lactated Ringers 1000 ml BAG 1,000 ML IV SCH (15:00)
[2022-04-28] MEDS ORDERED: Heparin 5000 UNITS/ML 1 mL VIAL IV PRN (15:09)
[2022-04-28 17:30] LABS: Total Iron Binding Capacity 235 mcg/dL (250-450); Transferrin 168 mg/dL (203-362)
[2022-04-28 17:51] LABS: Ferritin 872.8 ng/mL (11-307)
[2022-04-28 17:56] LABS: Vitamin B12 373 pg/mL (180-914)
[2022-04-28 17:57] LABS: % Iron Saturation 9 % (15-55); Iron < 20 ug/dL (50-212); Unsaturated Iron Binding 215 ug/dL
[2022-04-29 05:41] LABS: ABS Lymphocytes 1.1 10^3/ul (1.0-4.8); ABS Monocytes 1.1 10^3/ul (0-0.8); ABS Neutrophils 10.6 10^3/ul (1.5-7.7); Eosinophil % 0.1 %; Hematocrit 26 % (35-47); Hemoglobin 8.2 g/dL (12.0-16.0); Lymphocyte % 8.2 %; Mean Corpuscular HGB Conc 31 g/dL (31-36); Mean Corpuscular Hemoglobin 28 pg (27-31); Mean Corpuscular Volume 88 fL (80-97); Mean Platelet Volume 7.1 fL (7.4-10.4); Platelet Count 409 10^3/uL (150-450); Red Blood Count 2.98 10^6 /uL (3.70-4.87); Red Cell Distribution Width 15 % (10-15); White Blood Count 12.9 10^3/uL (3.5-10.8)
[2022-04-29] MEDS: Dexamethasone IV 4 MG/ML VIAL 1 ml VIAL IV SLOW PU SCH (08:18)
[2022-04-29] MEDS: Cholecalciferol (VIT D3) 1,000 unit TAB PO SCH (08:19)
[2022-04-29] MEDS: Isosorbide Mononit ER 30mg TAB PO SCH (08:20)
[2022-04-29] MEDS: Aspirin EC 81 mg TAB.EC (enteric coated) PO SCH (08:20)
[2022-04-29] MEDS: CMCS: Prasugrel 10 mg TAB (NF) PO SCH (08:29)
[2022-04-29] MEDS ORDERED: Remdesivir 100 mg Vial 100 MG in NS 0.9% 250 ml 230 ML IV SCH (09:00)
[2022-04-29 12:04] LABS: Calcium 9.4 mg/dL (8.6-10.3); Magnesium 1.7 mg/dL (1.9-2.7); Potassium 5.1 mmol/L (3.5-5.0); eGFR CKD-EPI 13.1 (>60)
[2022-04-29] MEDS: Albuterol 2.5mg/3 ml (0.083%) NEB.SOLN INH PRN ×2 (13:50→20:20)
[2022-04-29] MEDS ORDERED: Magnesium Sulfate 2 gm BAG 2 GM/50 ML BAG IVPB ONE (14:30)
[2022-04-29] MEDS ORDERED: Lactated Ringers 1000 ml BAG 1,000 ML IV SCH (17:34)
[2022-04-29] MEDS: Heparin 5000 UNITS/ML 1 mL VIAL SUBCUT SCH ×2 (20:18→21:55)
[2022-04-29 20:19] LABS: Hematocrit 25 % (35-47); Hemoglobin 7.8 g/dL (12.0-16.0); Mean Corpuscular HGB Conc 31 g/dL (31-36); Mean Corpuscular Hemoglobin 27 pg (27-31); Mean Corpuscular Volume 87 fL (80-97); Mean Platelet Volume 6.7 fL (7.4-10.4); Platelet Count 480 10^3/uL (150-450); Red Blood Count 2.85 10^6 /uL (3.70-4.87); Red Cell Distribution Width 14 % (10-15); White Blood Count 16.8 10^3/uL (3.5-10.8)
[2022-04-29 20:28] LABS: Activated Partial Thrombo Time 30.3 seconds (26.0-38.0); INR 1.33 (0.89-1.11)
[2022-04-29 21:00] LABS: eGFR CKD-EPI 13.2 (>60)
[2022-04-29 21:21] LABS: ABS Lymphocytes 0.9 10^3/ul (1.0-4.8); ABS Monocytes 1.6 10^3/ul (0-0.8); ABS Neutrophils 14.4 10^3/ul (1.5-7.7); Lymphocyte % 5.3 %
[2022-04-30 05:09] LABS: ABS Lymphocytes 0.9 10^3/ul (1.0-4.8); ABS Monocytes 1.2 10^3/ul (0-0.8); ABS Neutrophils 12.8 10^3/ul (1.5-7.7); Hematocrit 24 % (35-47); Hemoglobin 7.8 g/dL (12.0-16.0); Lymphocyte % 5.7 %; Mean Corpuscular HGB Conc 32 g/dL (31-36); Mean Corpuscular Hemoglobin 28 pg (27-31); Mean Corpuscular Volume 86 fL (80-97); Mean Platelet Volume 6.8 fL (7.4-10.4); Platelet Count 453 10^3/uL (150-450); Red Cell Distribution Width 14 % (10-15); White Blood Count 14.9 10^3/uL (3.5-10.8)
[2022-04-30] MEDS: Heparin 5000 UNITS/ML 1 mL VIAL SUBCUT SCH ×3 (05:26→20:22)
[2022-04-30 05:35] LABS: Calcium 8.9 mg/dL (8.6-10.3)
[2022-04-30 05:39] LABS: Potassium 5.3 mmol/L (3.5-5.0)
[2022-04-30] MEDS: CMCS: Prasugrel 10 mg TAB (NF) PO SCH (08:28)
[2022-04-30] MEDS: Aspirin EC 81 mg TAB.EC (enteric coated) PO SCH (08:28)
[2022-04-30] MEDS: Cholecalciferol (VIT D3) 1,000 unit TAB PO SCH (08:28)
[2022-04-30] MEDS: Isosorbide Mononit ER 30mg TAB PO SCH (08:28)
[2022-04-30] MEDS: Dexamethasone IV 4 MG/ML VIAL 1 ml VIAL IV SLOW PU SCH (08:29)
[2022-04-30] MEDS ORDERED: Furosemide 40 mg/4 ml IV VIAL IV ONE (18:11)
[2022-04-30 19:45] LABS: Calcium 9.4 mg/dL (8.6-10.3)
[2022-04-30 19:51] LABS: eGFR CKD-EPI 13.1 (>60)
[2022-04-30 19:53] LABS: Potassium 6.1 mmol/L (3.5-5.0)
[2022-04-30] MEDS ORDERED: Dextrose 50% Syringe 50 ml 25 GM/50 ML SYRINGE IV PUSH ONE (20:26)
[2022-04-30] MEDS: Albuterol 2.5mg/3 ml (0.083%) NEB.SOLN INH PRN (21:41)
[2022-04-30] MEDS: Benzocaine/Menthol LOZ PO PRN (22:12)
[2022-05-01 05:31] LABS: Hematocrit 24 % (35-47); Hemoglobin 7.5 g/dL (12.0-16.0); Mean Corpuscular HGB Conc 32 g/dL (31-36); Mean Corpuscular Hemoglobin 27 pg (27-31); Mean Corpuscular Volume 86 fL (80-97); Mean Platelet Volume 6.6 fL (7.4-10.4); Platelet Count 492 10^3/uL (150-450); Red Blood Count 2.74 10^6 /uL (3.70-4.87); Red Cell Distribution Width 14 % (10-15); White Blood Count 14.7 10^3/uL (3.5-10.8)
[2022-05-01] MEDS: Heparin 5000 UNITS/ML 1 mL VIAL SUBCUT SCH ×3 (05:33→22:17)
[2022-05-01] MEDS: Benzocaine/Menthol LOZ PO PRN ×2 (06:03→21:07)
[2022-05-01 06:06] LABS: Magnesium 2.1 mg/dL (1.9-2.7)
[2022-05-01 06:11] LABS: Phosphorus 4.5 mg/dL (2.5-5.0)
[2022-05-01 08:10] LABS: Potassium 5.8 mmol/L (3.5-5.0)
[2022-05-01 08:12] LABS: eGFR CKD-EPI 12.7 (>60)
[2022-05-01 08:38] LABS: ABS Lymphocytes 0.8 10^3/ul (1.0-4.8); ABS Monocytes 1.5 10^3/ul (0-0.8); ABS Neutrophils 12.4 10^3/ul (1.5-7.7); Anisocytosis 1+; Lymphocyte % 5.8 %
[2022-05-01] MEDS ORDERED: SODIUM ZIRCONIUM CYCLOSILICATE 10 GM PACKET PO SCH (10:00)
[2022-05-01] MEDS: Polyethylene Glycol 3350 17 GM PACKET PO SCH ×2 (10:16→21:06)
[2022-05-01] MEDS: CMCS: Prasugrel 10 mg TAB (NF) PO SCH (10:16)
[2022-05-01] MEDS: Isosorbide Mononit ER 30mg TAB PO SCH (10:17)
[2022-05-01] MEDS: Aspirin EC 81 mg TAB.EC (enteric coated) PO SCH (10:17)
[2022-05-01] MEDS: Cholecalciferol (VIT D3) 1,000 unit TAB PO SCH (10:19)
[2022-05-01] MEDS: Dexamethasone IV 4 MG/ML VIAL 1 ml VIAL IV SLOW PU SCH (10:23)
[2022-05-01] MEDS: Albuterol 2.5mg/3 ml (0.083%) NEB.SOLN INH PRN (13:49)
[2022-05-01] MEDS ORDERED: Senna TAB 8.6 mg TAB PO PRN (16:07)
[2022-05-01 16:25] LABS: Body Fluid Appearance Bloody; Body Fluid Color Pink; Body Fluid Source Peritonial Fluid
[2022-05-01 17:14] LABS: Body Fluid WBC 794 /mcL
[2022-05-01 17:38] LABS: Body Fluid Mono 14 %; Body Fluid Total Cells Counted 200
[2022-05-01] MEDS: Senna TAB 8.6 mg TAB PO SCH (21:07)
[2022-05-01] MEDS: PTO: Multivitamins/Mins AREDS2 (NF) CAP PO SCH (21:53)
[2022-05-01] MEDS: SODIUM ZIRCONIUM CYCLOSILICATE 10 GM PACKET PO SCH (22:15)
[2022-05-02] MEDS: Heparin 5000 UNITS/ML 1 mL VIAL SUBCUT SCH ×3 (06:13→21:40)
[2022-05-02 06:23] LABS: Hematocrit 24 % (35-47); Hemoglobin 7.9 g/dL (12.0-16.0); Mean Corpuscular HGB Conc 33 g/dL (31-36); Mean Corpuscular Hemoglobin 28 pg (27-31); Mean Corpuscular Volume 86 fL (80-97); Mean Platelet Volume 6.4 fL (7.4-10.4); Platelet Count 501 10^3/uL (150-450); Red Blood Count 2.83 10^6 /uL (3.70-4.87); Red Cell Distribution Width 14 % (10-15)
[2022-05-02 07:02] LABS: Calcium 8.9 mg/dL (8.6-10.3); Magnesium 2.1 mg/dL (1.9-2.7); Phosphorus 4.8 mg/dL (2.5-5.0); eGFR CKD-EPI 12.7 (>60)
[2022-05-02 07:22] LABS: Potassium 6.1 mmol/L (3.5-5.0)
[2022-05-02] MEDS ORDERED: CALCIUM GLUCONATE 1GM/50ML NS 1 GM/50 ML BAG IV ONE (07:31)
[2022-05-02] MEDS ORDERED: Dextrose 50% Syringe 50 ml 25 GM/50 ML SYRINGE IV PUSH ONE (07:42)
[2022-05-02] MEDS: SODIUM ZIRCONIUM CYCLOSILICATE 10 GM PACKET PO SCH ×2 (07:57→14:55)
[2022-05-02] MEDS: Isosorbide Mononit ER 30mg TAB PO SCH (10:08)
[2022-05-02] MEDS: Cholecalciferol (VIT D3) 1,000 unit TAB PO SCH (10:08)
[2022-05-02] MEDS: Senna TAB 8.6 mg TAB PO SCH ×2 (10:09→20:48)
[2022-05-02] MEDS: Polyethylene Glycol 3350 17 GM PACKET PO SCH (10:09)
[2022-05-02] MEDS: Aspirin EC 81 mg TAB.EC (enteric coated) PO SCH (10:09)
[2022-05-02] MEDS: PTO: Multivitamins/Mins AREDS2 (NF) CAP PO SCH ×2 (10:27→23:09)
[2022-05-02] MEDS: CMCS: Prasugrel 10 mg TAB (NF) PO SCH (10:27)
[2022-05-02 11:59] LABS: Burr Cells 2+
[2022-05-02 12:01] LABS: ABS Lymphocytes 1.1 10^3/ul (1.0-4.8); ABS Monocytes 1.2 10^3/ul (0-0.8); ABS Neutrophils 11.6 10^3/ul (1.5-7.7); Lymphocyte % 7.8 %
[2022-05-02] MEDS: Dexamethasone IV 4 MG/ML VIAL 1 ml VIAL IV SLOW PU SCH (12:44)
[2022-05-02] MEDS: Iron Sucrose 200 MG in NS 0.9% 100 ml BAG 100 ML IVPB SCH (13:21)
[2022-05-02 16:53] LABS: Potassium 5.5 mmol/L (3.5-5.0)
[2022-05-02 16:54] LABS: eGFR CKD-EPI 12.4 (>60)
[2022-05-02] MEDS: Benzocaine/Menthol LOZ PO PRN ×2 (20:48→23:50)
[2022-05-03] MEDS ORDERED: oxyCODONE 5 mg/5 ml ORAL.SOLN UDC PO ONE (01:23)
[2022-05-03] MEDS: Heparin 5000 UNITS/ML 1 mL VIAL SUBCUT SCH ×3 (05:37→21:54)
[2022-05-03 06:30] LABS: Calcium 8.7 mg/dL (8.6-10.3); Potassium 5.8 mmol/L (3.5-5.0)
[2022-05-03] MEDS ORDERED: SODIUM ZIRCONIUM CYCLOSILICATE 10 GM PACKET PO SCH (09:00)
[2022-05-03] MEDS: Polyethylene Glycol 3350 17 GM PACKET PO SCH (10:50)
[2022-05-03] MEDS: Isosorbide Mononit ER 30mg TAB PO SCH (10:50)
[2022-05-03] MEDS: Iron Sucrose 200 MG in NS 0.9% 100 ml BAG 100 ML IVPB SCH (10:51)
[2022-05-03] MEDS: Aspirin EC 81 mg TAB.EC (enteric coated) PO SCH (10:51)
[2022-05-03] MEDS: Senna TAB 8.6 mg TAB PO SCH ×2 (10:51→21:55)
[2022-05-03] MEDS: Cholecalciferol (VIT D3) 1,000 unit TAB PO SCH (10:51)
[2022-05-03] MEDS: CMCS: Prasugrel 10 mg TAB (NF) PO SCH (10:52)
[2022-05-03] MEDS: PTO: Multivitamins/Mins AREDS2 (NF) CAP PO SCH (10:53)
[2022-05-03] MEDS: Benzocaine/Menthol LOZ PO PRN ×2 (11:12→19:46)
[2022-05-03 13:52] LABS: C Reactive Protein 49.02 mg/L (<8.01)
[2022-05-03 14:00] LABS: Lactate Dehydrogenase, BF 257 U/L
[2022-05-03 15:00] LABS: Albumin, BF 2.2 g/dL; Fluid Type, Albumin PERITONEAL; Fluid Type, Protein, Total PERITONEAL
[2022-05-03 15:11] LABS: Calcium 9.3 mg/dL (8.6-10.3); eGFR CKD-EPI 12.3 (>60)
[2022-05-03 15:17] LABS: Potassium 5.7 mmol/L (3.5-5.0)
[2022-05-04] MEDS: PTO: Multivitamins/Mins AREDS2 (NF) CAP PO SCH ×3 (00:10→20:07)
[2022-05-04] MEDS: Heparin 5000 UNITS/ML 1 mL VIAL SUBCUT SCH ×3 (06:04→21:20)
[2022-05-04 08:08] LABS: Hematocrit 27 % (35-47); Hemoglobin 8.6 g/dL (12.0-16.0); Mean Corpuscular HGB Conc 32 g/dL (31-36); Mean Corpuscular Hemoglobin 28 pg (27-31); Mean Corpuscular Volume 87 fL (80-97); Mean Platelet Volume 6.5 fL (7.4-10.4); Platelet Count 524 10^3/uL (150-450); Red Blood Count 3.09 10^6 /uL (3.70-4.87); Red Cell Distribution Width 15 % (10-15); White Blood Count 19.7 10^3/uL (3.5-10.8)
[2022-05-04 08:54] LABS: Calcium 9.1 mg/dL (8.6-10.3); eGFR CKD-EPI 12.5 (>60)
[2022-05-04] MEDS: Polyethylene Glycol 3350 17 GM PACKET PO SCH (09:04)
[2022-05-04] MEDS: Cholecalciferol (VIT D3) 1,000 unit TAB PO SCH (09:05)
[2022-05-04] MEDS: Senna TAB 8.6 mg TAB PO SCH ×2 (09:05→19:39)
[2022-05-04] MEDS: Isosorbide Mononit ER 30mg TAB PO SCH (09:05)
[2022-05-04] MEDS: Aspirin EC 81 mg TAB.EC (enteric coated) PO SCH (09:06)
[2022-05-04] MEDS: CMCS: Prasugrel 10 mg TAB (NF) PO SCH (09:06)
[2022-05-04] MEDS ORDERED: Magnesium Hydroxide LIQ 30 ML UDC PO PRN (09:40)
[2022-05-04] MEDS ORDERED: Magnesium Hydroxide LIQ 30 ML UDC PO ONE (09:41)
[2022-05-04] MEDS: Iron Sucrose 200 MG in NS 0.9% 100 ml BAG 100 ML IVPB SCH (10:32)
[2022-05-04] MEDS ORDERED: Dextrose 50% Syringe 50 ml 25 GM/50 ML SYRINGE IV PUSH ONE (10:42)
[2022-05-04 13:56] LABS: ABS Lymphocytes 1.7 10^3/ul (1.0-4.8); ABS Monocytes 1.7 10^3/ul (0-0.8); ABS Neutrophils 16.2 10^3/ul (1.5-7.7); Acanthocytes 1+; Eosinophil % 0.1 %; Lymphocyte % 8.8 %
[2022-05-04 20:59] LABS: eGFR CKD-EPI 12.4 (>60)
[2022-05-04 21:17] LABS: Potassium 5.7 mmol/L (3.5-5.0)
[2022-05-05] MEDS: Heparin 5000 UNITS/ML 1 mL VIAL SUBCUT SCH ×3 (05:37→21:52)
[2022-05-05 07:02] LABS: Albumin 2.6 g/dL (3.2-5.2); CO2 Carbon Dioxide 15 mmol/L (22-32); Calcium 9.1 mg/dL (8.6-10.3); Chloride 106 mmol/L (101-111); Sodium 134 mmol/L (135-145)
[2022-05-05 07:08] LABS: ALT 17 U/L (7-52); Alkaline Phosphatase 73 U/L (35-149); Blood Urea Nitrogen 75 mg/dL (6-24); Globulin 2.6 g/dL (2-4); Glucose 104 mg/dL (70-100); Total Protein 5.2 g/dL (6.4-8.9); eGFR CKD-EPI 13.3 (>60)
[2022-05-05 07:17] LABS: Anion Gap 13 mmol/L (2-11)
[2022-05-05] MEDS ORDERED: Dextrose 50% VIAL 50 ml IV ONE (08:45)
[2022-05-05] MEDS: Iron Sucrose 200 MG in NS 0.9% 100 ml BAG 100 ML IVPB SCH (10:27)
[2022-05-05] MEDS: Isosorbide Mononit ER 30mg TAB PO SCH (10:31)
[2022-05-05] MEDS: Aspirin EC 81 mg TAB.EC (enteric coated) PO SCH (10:31)
[2022-05-05] MEDS: Senna TAB 8.6 mg TAB PO SCH ×2 (10:31→21:46)
[2022-05-05] MEDS: Polyethylene Glycol 3350 17 GM PACKET PO SCH (10:32)
[2022-05-05] MEDS: PTO: Multivitamins/Mins AREDS2 (NF) CAP PO SCH ×2 (10:32→21:36)
[2022-05-05] MEDS: CMCS: Prasugrel 10 mg TAB (NF) PO SCH (10:32)
[2022-05-05] MEDS: Cholecalciferol (VIT D3) 1,000 unit TAB PO SCH (10:32)
[2022-05-05 10:36] LABS: RBC Morphology Normal (Normal)
[2022-05-05 10:37] LABS: ABS Basophils 0.1 10^3/ul (0-0.2); ABS Lymphocytes 1.8 10^3/ul (1.0-4.8); ABS Monocytes 2.1 10^3/ul (0-0.8); ABS Neutrophils 21.7 10^3/ul (1.5-7.7); Eosinophil % 0.2 %; Hematocrit 29 % (35-47); Mean Corpuscular HGB Conc 31 g/dL (31-36); Mean Corpuscular Hemoglobin 27 pg (27-31); Mean Corpuscular Volume 87 fL (80-97); Mean Platelet Volume 6.6 fL (7.4-10.4); Platelet Count 549 10^3/uL (150-450); Red Blood Count 3.32 10^6 /uL (3.70-4.87); Red Cell Distribution Width 15 % (10-15); White Blood Count 25.7 10^3/uL (3.5-10.8)
[2022-05-05] MEDS: Magnesium Hydroxide LIQ 30 ML UDC PO SCH ×3 (13:59→23:44)
[2022-05-05 15:04] LABS: Calcium 9.3 mg/dL (8.6-10.3); eGFR CKD-EPI 13.6 (>60)
[2022-05-05 15:07] LABS: Potassium 5.8 mmol/L (3.5-5.0)
[2022-05-05] MEDS: Saline NASAL SPRAY 0.65% BTL BOTH NARES PRN ×2 (17:07→21:43)
[2022-05-05] MEDS: Benzocaine/Menthol LOZ PO PRN (21:44)
[2022-05-06] MEDS: Magnesium Hydroxide LIQ 30 ML UDC PO SCH ×4 (05:00→17:54)
[2022-05-06] MEDS: Heparin 5000 UNITS/ML 1 mL VIAL SUBCUT SCH ×3 (05:02→21:30)
[2022-05-06] MEDS: CMCS: Prasugrel 10 mg TAB (NF) PO SCH (09:05)
[2022-05-06] MEDS: Cholecalciferol (VIT D3) 1,000 unit TAB PO SCH (09:05)
[2022-05-06] MEDS: Isosorbide Mononit ER 30mg TAB PO SCH (09:05)
[2022-05-06] MEDS: Aspirin EC 81 mg TAB.EC (enteric coated) PO SCH (09:06)
[2022-05-06] MEDS: PTO: Multivitamins/Mins AREDS2 (NF) CAP PO SCH ×2 (09:06→21:30)
[2022-05-06] MEDS: Polyethylene Glycol 3350 17 GM PACKET PO SCH (09:07)
[2022-05-06] MEDS: Senna TAB 8.6 mg TAB PO SCH ×2 (09:07→21:28)
[2022-05-06 09:53] LABS: Albumin 2.9 g/dL (3.2-5.2); Calcium 9.4 mg/dL (8.6-10.3); Direct Bilirubin 0.1 mg/dL (0.03-0.18); Globulin 2.9 g/dL (2-4); Indirect Bilirubin 0.2 mg/dL (0.3-1.0); Magnesium 2.3 mg/dL (1.9-2.7); Total Bilirubin 0.3 mg/dL (0.2-1.0); Total Protein 5.8 g/dL (6.4-8.9); eGFR CKD-EPI 14.1 (>60)
[2022-05-06] MEDS: Iron Sucrose 200 MG in NS 0.9% 100 ml BAG 100 ML IVPB SCH (10:02)
[2022-05-06 10:05] LABS: Potassium 6.3 mmol/L (3.5-5.0)
[2022-05-06] MEDS ORDERED: Dextrose 50% Syringe 50 ml 25 GM/50 ML SYRINGE IV PUSH PRN (10:08)
[2022-05-06 10:31] LABS: Hematocrit 29 % (35-47); Hemoglobin 9.1 g/dL (12.0-16.0); Mean Corpuscular HGB Conc 32 g/dL (31-36); Mean Corpuscular Hemoglobin 27 pg (27-31); Mean Corpuscular Volume 86 fL (80-97); Mean Platelet Volume 6.4 fL (7.4-10.4); Platelet Count 577 10^3/uL (150-450); Red Blood Count 3.38 10^6 /uL (3.70-4.87); Red Cell Distribution Width 15 % (10-15); White Blood Count 22.2 10^3/uL (3.5-10.8)
[2022-05-06] MEDS ORDERED: SODIUM ZIRCONIUM CYCLOSILICATE 10 GM PACKET PO ONE (10:52)
[2022-05-06 14:15] LABS: CO2 Carbon Dioxide 17 mmol/L (22-32); Calcium 9.1 mg/dL (8.6-10.3); Chloride 104 mmol/L (101-111); Sodium 133 mmol/L (135-145)
[2022-05-06 14:20] LABS: Potassium, Whole Blood 5.7 mmol/L (3.4-4.5)
[2022-05-06 14:21] LABS: Anion Gap 12 mmol/L (2-11); Blood Urea Nitrogen 76 mg/dL (6-24); Glucose 122 mg/dL (70-100); eGFR CKD-EPI 14.1 (>60)
[2022-05-06] MEDS ORDERED: Lidocaine 1% VIAL 10 MG/ML VIAL 30 ML INJ ONE (16:19)
[2022-05-06] MEDS ORDERED: Lidocaine 2% PF 5 ML VIAL INJ ONE (16:19)
[2022-05-06] MEDS ORDERED: Lactulose 30 ml UDC PO ONE (18:01)
[2022-05-06] MEDS: cloNIDine 0.2 MG PATCH 0.2 MG/24 HR 7 DAY PATCH TRANSDERM SCH (18:21)
[2022-05-06] MEDS: Sodium Polystyrene ORAL.SUSP 15 GM/60 ML BTL PO SCH ×2 (18:27→21:30)
[2022-05-06 19:12] LABS: Body Fluid Appearance Bloody; Body Fluid Color Red; Body Fluid Source Pleural Fluid
[2022-05-06 19:59] LABS: Body Fluid WBC 683 /mcL
[2022-05-06 20:31] LABS: Body Fluid Mono 10 %; Body Fluid Total Cells Counted 200
[2022-05-06] MEDS ORDERED: Magnesium Hydroxide LIQ 30 ML UDC PO PRN (22:47)
[2022-05-07 06:00] LABS: Hematocrit 28 % (35-47); Hemoglobin 8.9 g/dL (12.0-16.0); Mean Corpuscular HGB Conc 32 g/dL (31-36); Mean Corpuscular Hemoglobin 27 pg (27-31); Mean Corpuscular Volume 86 fL (80-97); Mean Platelet Volume 6.8 fL (7.4-10.4); Platelet Count 548 10^3/uL (150-450); Red Blood Count 3.24 10^6 /uL (3.70-4.87); Red Cell Distribution Width 15 % (10-15); White Blood Count 20.2 10^3/uL (3.5-10.8)
[2022-05-07] MEDS ORDERED: Polyethylene Glycol 3350 17 GM PACKET PO PRN (06:00)
[2022-05-07] MEDS: Heparin 5000 UNITS/ML 1 mL VIAL SUBCUT SCH ×3 (06:21→22:02)
[2022-05-07 06:24] LABS: Calcium 9.3 mg/dL (8.6-10.3); Magnesium 2.4 mg/dL (1.9-2.7); eGFR CKD-EPI 14.1 (>60)
[2022-05-07 06:25] LABS: Potassium 5.2 mmol/L (3.5-5.0)
[2022-05-07 08:24] LABS: Activated Partial Thrombo Time 39.8 seconds (26.0-38.0); INR 1.05 (0.89-1.11)
[2022-05-07] MEDS: CMCS: Prasugrel 10 mg TAB (NF) PO SCH (08:25)
[2022-05-07] MEDS: Aspirin EC 81 mg TAB.EC (enteric coated) PO SCH (08:25)
[2022-05-07] MEDS: Isosorbide Mononit ER 30mg TAB PO SCH (08:25)
[2022-05-07] MEDS: Cholecalciferol (VIT D3) 1,000 unit TAB PO SCH (08:25)
[2022-05-07] MEDS: PTO: Multivitamins/Mins AREDS2 (NF) CAP PO SCH ×2 (08:26→21:46)
[2022-05-07] MEDS ORDERED: Sodium Polystyrene ORAL.SUSP 15 GM/60 ML BTL PO ONE (09:41)
[2022-05-07] MEDS ORDERED: Lactulose 30 ml UDC PO PRN (09:44)
[2022-05-07 12:50] LABS: Fluid Type, Amylase PERITONEAL; Glucose, BF 96 mg/dL
[2022-05-08] MEDS: Heparin 5000 UNITS/ML 1 mL VIAL SUBCUT SCH ×5 (05:09→23:24)
[2022-05-08] MEDS: Isosorbide Mononit ER 30mg TAB PO SCH (09:37)
[2022-05-08] MEDS: Aspirin EC 81 mg TAB.EC (enteric coated) PO SCH (09:37)
[2022-05-08] MEDS: Cholecalciferol (VIT D3) 1,000 unit TAB PO SCH (09:37)
[2022-05-08] MEDS: CMCS: Prasugrel 10 mg TAB (NF) PO SCH (09:39)
[2022-05-08] MEDS: PTO: Multivitamins/Mins AREDS2 (NF) CAP PO SCH ×2 (09:42→21:19)
[2022-05-08] MEDS: Sodium Polystyrene ORAL.SUSP 15 GM/60 ML BTL PO SCH (09:43)
[2022-05-08 10:48] LABS: Fluid Type, Amylase PLEURAL FLUID
[2022-05-08 10:50] LABS: Fluid Type, Protein, Total PLEURAL FLUID
[2022-05-08 10:58] LABS: Lactate Dehydrogenase, BF 113 U/L
[2022-05-08 10:59] LABS: Albumin, BF 1.9 g/dL; Fluid Type, Albumin PLEURAL FLUID; Glucose, BF 160 mg/dL
[2022-05-08 11:56] LABS: Body Fluid Bilirubin 0.7 mg/dL; Fluid Type PLEURAL FLUID; Fluid Type: PLEURAL FLUID; Triglycerides (BF) 34 mg/dL
[2022-05-08 13:51] LABS: Calcium 9.2 mg/dL (8.6-10.3); Magnesium 2.2 mg/dL (1.9-2.7); Potassium 4.5 mmol/L (3.5-5.0)
[2022-05-08 17:04] LABS: Body Fluid Appearance Bloody; Body Fluid Source Pleural Fluid
[2022-05-08 17:49] LABS: Body Fluid WBC 531 /mcL
[2022-05-08 18:16] LABS: Body Fluid Mono 37 %; Body Fluid Other Cells 3; Body Fluid Total Cells Counted 200
[2022-05-08] MEDS: Senna TAB 8.6 mg TAB PO SCH (21:19)
[2022-05-09 05:20] LABS: Hematocrit 27 % (35-47); Hemoglobin 8.4 g/dL (12.0-16.0); Mean Corpuscular HGB Conc 32 g/dL (31-36); Mean Corpuscular Hemoglobin 27 pg (27-31); Mean Corpuscular Volume 86 fL (80-97); Mean Platelet Volume 6.7 fL (7.4-10.4); Platelet Count 393 10^3/uL (150-450); Red Blood Count 3.08 10^6 /uL (3.70-4.87); Red Cell Distribution Width 15 % (10-15); White Blood Count 17.7 10^3/uL (3.5-10.8)
[2022-05-09 05:46] LABS: Calcium 8.2 mg/dL (8.6-10.3); Magnesium 1.9 mg/dL (1.9-2.7); Phosphorus 3.8 mg/dL (2.5-5.0); Potassium 4.6 mmol/L (3.5-5.0); eGFR CKD-EPI 14.1 (>60)
[2022-05-09] MEDS: Heparin 5000 UNITS/ML 1 mL VIAL SUBCUT SCH ×3 (06:04→21:59)
[2022-05-09] MEDS: Cholecalciferol (VIT D3) 1,000 unit TAB PO SCH (09:20)
[2022-05-09] MEDS: PTO: Multivitamins/Mins AREDS2 (NF) CAP PO SCH ×2 (09:20→23:27)
[2022-05-09] MEDS: Aspirin EC 81 mg TAB.EC (enteric coated) PO SCH (09:20)
[2022-05-09] MEDS: Isosorbide Mononit ER 30mg TAB PO SCH (09:20)
[2022-05-09] MEDS: Senna TAB 8.6 mg TAB PO SCH ×2 (09:20→21:40)
[2022-05-09] MEDS: CMCS: Prasugrel 10 mg TAB (NF) PO SCH (10:22)
[2022-05-09] MEDS: Saline NASAL SPRAY 0.65% BTL BOTH NARES PRN (10:22)
[2022-05-09] MEDS ORDERED: Saline NASAL SPRAY 0.65% BTL BOTH NARES PRN (10:58)
[2022-05-10] MEDS: Heparin 5000 UNITS/ML 1 mL VIAL SUBCUT SCH ×3 (05:53→21:41)
[2022-05-10 06:07] LABS: Hematocrit 27 % (35-47); Hemoglobin 8.3 g/dL (12.0-16.0); Mean Corpuscular HGB Conc 31 g/dL (31-36); Mean Corpuscular Hemoglobin 27 pg (27-31); Mean Corpuscular Volume 87 fL (80-97); Mean Platelet Volume 7.1 fL (7.4-10.4); Platelet Count 349 10^3/uL (150-450); Red Blood Count 3.06 10^6 /uL (3.70-4.87); Red Cell Distribution Width 16 % (10-15); White Blood Count 18.7 10^3/uL (3.5-10.8)
[2022-05-10 06:32] LABS: Calcium 8.5 mg/dL (8.6-10.3); Magnesium 1.9 mg/dL (1.9-2.7); Potassium 4.7 mmol/L (3.5-5.0); eGFR CKD-EPI 12.9 (>60)
[2022-05-10] MEDS: Cholecalciferol (VIT D3) 1,000 unit TAB PO SCH (08:24)
[2022-05-10] MEDS: Senna TAB 8.6 mg TAB PO SCH (08:24)
[2022-05-10] MEDS: Isosorbide Mononit ER 30mg TAB PO SCH (08:24)
[2022-05-10] MEDS: PTO: Multivitamins/Mins AREDS2 (NF) CAP PO SCH ×2 (08:25→21:40)
[2022-05-10] MEDS: Aspirin EC 81 mg TAB.EC (enteric coated) PO SCH (08:25)
[2022-05-10 11:52] LABS: Glucose, BF 122 mg/dL
[2022-05-10] MEDS: Sodium Polystyrene ORAL.SUSP 15 GM/60 ML BTL PO SCH (11:55)
[2022-05-10] MEDS: CMCS: Prasugrel 10 mg TAB (NF) PO SCH (11:55)
[2022-05-10 11:58] LABS: Albumin, BF 1.7 g/dL; Fluid Type, Albumin PLEURAL
[2022-05-10 12:01] LABS: Fluid Type, Protein, Total PLEURAL; Total Protein, BF 2.9 g/dL
[2022-05-10 12:32] LABS: High Sensitivity Troponin 1 Hr 40 pg/mL (<15)
[2022-05-10 16:42] LABS: Lactate Dehydrogenase, BF 108 U/L
[2022-05-11] MEDS: Heparin 5000 UNITS/ML 1 mL VIAL SUBCUT SCH ×3 (05:20→20:59)
[2022-05-11 06:09] LABS: Hematocrit 27 % (35-47); Hemoglobin 8.5 g/dL (12.0-16.0); Mean Corpuscular HGB Conc 31 g/dL (31-36); Mean Corpuscular Hemoglobin 27 pg (27-31); Mean Corpuscular Volume 87 fL (80-97); Mean Platelet Volume 7.5 fL (7.4-10.4); Platelet Count 340 10^3/uL (150-450); Red Blood Count 3.16 10^6 /uL (3.70-4.87); Red Cell Distribution Width 16 % (10-15); White Blood Count 19.7 10^3/uL (3.5-10.8)
[2022-05-11 06:22] LABS: Calcium 8.4 mg/dL (8.6-10.3); Magnesium 1.9 mg/dL (1.9-2.7); Phosphorus 4.2 mg/dL (2.5-5.0); Potassium 4.3 mmol/L (3.5-5.0); eGFR CKD-EPI 12.8 (>60)
[2022-05-11] MEDS ORDERED: Magnesium Sulfate IV 1GM/100ML 1 GM/100 ML BAG IV ONE (07:26)
[2022-05-11] MEDS: Isosorbide Mononit ER 30mg TAB PO SCH (08:41)
[2022-05-11] MEDS: Cholecalciferol (VIT D3) 1,000 unit TAB PO SCH (08:41)
[2022-05-11] MEDS: Aspirin EC 81 mg TAB.EC (enteric coated) PO SCH (08:42)
[2022-05-11] MEDS: PTO: Multivitamins/Mins AREDS2 (NF) CAP PO SCH ×2 (08:45→22:38)
[2022-05-11] MEDS: Senna TAB 8.6 mg TAB PO PRN (20:59)
[2022-05-12] MEDS: Heparin 5000 UNITS/ML 1 mL VIAL SUBCUT SCH ×3 (05:41→20:09)
[2022-05-12 08:40] LABS: Hematocrit 24 % (35-47); Hemoglobin 7.8 g/dL (12.0-16.0); Mean Corpuscular HGB Conc 32 g/dL (31-36); Mean Corpuscular Hemoglobin 28 pg (27-31); Mean Corpuscular Volume 87 fL (80-97); Mean Platelet Volume 7.3 fL (7.4-10.4); Platelet Count 295 10^3/uL (150-450); Red Blood Count 2.77 10^6 /uL (3.70-4.87); Red Cell Distribution Width 17 % (10-15); White Blood Count 18.1 10^3/uL (3.5-10.8)
[2022-05-12 09:00] LABS: ABS Basophils 0.1 10^3/ul (0-0.2); ABS Eosinophils 0.2 10^3/ul (0-0.6); ABS Lymphocytes 1.5 10^3/ul (1.0-4.8); ABS Monocytes 1.7 10^3/ul (0-0.8); ABS Neutrophils 14.7 10^3/ul (1.5-7.7); Lymphocyte % 8.3 %
[2022-05-12 09:21] LABS: Calcium 8.5 mg/dL (8.6-10.3); Potassium 4.5 mmol/L (3.5-5.0); eGFR CKD-EPI 13.3 (>60)
[2022-05-12] MEDS: Aspirin EC 81 mg TAB.EC (enteric coated) PO SCH (10:53)
[2022-05-12] MEDS: Isosorbide Mononit ER 30mg TAB PO SCH (10:53)
[2022-05-12] MEDS: Cholecalciferol (VIT D3) 1,000 unit TAB PO SCH (10:53)
[2022-05-12] MEDS: PTO: Multivitamins/Mins AREDS2 (NF) CAP PO SCH ×2 (11:00→20:07)
[2022-05-12] MEDS: Magnesium Hydroxide LIQ 30 ML UDC PO PRN (14:56)
[2022-05-12] MEDS: Senna TAB 8.6 mg TAB PO PRN (20:06)
[2022-05-12] MEDS: Benzocaine/Menthol LOZ PO PRN (20:13)
[2022-05-13] MEDS: Magnesium Hydroxide LIQ 30 ML UDC PO PRN (05:37)
[2022-05-13] MEDS: Heparin 5000 UNITS/ML 1 mL VIAL SUBCUT SCH ×3 (05:38→21:25)
[2022-05-13 06:54] LABS: Hematocrit 26 % (35-47); Hemoglobin 8.4 g/dL (12.0-16.0); Mean Corpuscular HGB Conc 32 g/dL (31-36); Mean Corpuscular Hemoglobin 28 pg (27-31); Mean Corpuscular Volume 88 fL (80-97); Mean Platelet Volume 7.6 fL (7.4-10.4); Platelet Count 303 10^3/uL (150-450); Red Blood Count 3.01 10^6 /uL (3.70-4.87); Red Cell Distribution Width 17 % (10-15); White Blood Count 13.3 10^3/uL (3.5-10.8)
[2022-05-13 07:15] LABS: Calcium 8.6 mg/dL (8.6-10.3); Magnesium 2.4 mg/dL (1.9-2.7); Potassium 4.9 mmol/L (3.5-5.0); eGFR CKD-EPI 13.2 (>60)
[2022-05-13] MEDS: Cholecalciferol (VIT D3) 1,000 unit TAB PO SCH (08:20)
[2022-05-13] MEDS: PTO: Multivitamins/Mins AREDS2 (NF) CAP PO SCH ×2 (08:23→21:29)
[2022-05-13] MEDS: Isosorbide Mononit ER 30mg TAB PO SCH (08:24)
[2022-05-13] MEDS: Aspirin EC 81 mg TAB.EC (enteric coated) PO SCH (08:27)
[2022-05-13] MEDS: Saline NASAL SPRAY 0.65% BTL BOTH NARES SCH ×2 (08:30→21:40)
[2022-05-13] MEDS: cloNIDine 0.2 MG PATCH 0.2 MG/24 HR 7 DAY PATCH TRANSDERM SCH (17:03)
[2022-05-13] MEDS ORDERED: Patiromer POWDER 8.4 GM PAK PO SCH ×2 (21:00→21:30)
[2022-05-14] MEDS: Heparin 5000 UNITS/ML 1 mL VIAL SUBCUT SCH ×3 (05:47→21:16)
[2022-05-14] MEDS: PTO: Multivitamins/Mins AREDS2 (NF) CAP PO SCH ×2 (08:28→21:20)
[2022-05-14] MEDS: Cholecalciferol (VIT D3) 1,000 unit TAB PO SCH (08:28)
[2022-05-14] MEDS: Aspirin EC 81 mg TAB.EC (enteric coated) PO SCH (08:28)
[2022-05-14] MEDS: Isosorbide Mononit ER 30mg TAB PO SCH (08:28)
[2022-05-14] MEDS: Saline NASAL SPRAY 0.65% BTL BOTH NARES SCH ×2 (08:28→21:20)
[2022-05-14] MEDS ORDERED: Ondansetron 4 mg VIAL 2 MG/ML 2 ml VIAL IV PRN ×2 (08:53→10:15)
[2022-05-14 09:21] LABS: Hematocrit 28 % (35-47); Hemoglobin 8.6 g/dL (12.0-16.0); Mean Corpuscular HGB Conc 31 g/dL (31-36); Mean Corpuscular Hemoglobin 27 pg (27-31); Mean Corpuscular Volume 87 fL (80-97); Platelet Count 304 10^3/uL (150-450); Red Blood Count 3.18 10^6 /uL (3.70-4.87); Red Cell Distribution Width 17 % (10-15); White Blood Count 12.2 10^3/uL (3.5-10.8)
[2022-05-14] MEDS: Patiromer POWDER 8.4 GM PAK PO SCH ×2 (09:29→21:16)
[2022-05-14 09:53] LABS: Calcium 8.7 mg/dL (8.6-10.3); Magnesium 2.2 mg/dL (1.9-2.7); eGFR CKD-EPI 13.5 (>60)
[2022-05-14 09:54] LABS: Potassium 5.3 mmol/L (3.5-5.0)
[2022-05-14] MEDS ORDERED: Prochlorperazine 5 mg/ml 2 ml VIAL (10 mg) IV PRN (10:15)
[2022-05-14] MEDS ORDERED: LORazepam 2 mg VIAL 1 ml IV PUSH PRN (11:59)
[2022-05-14] MEDS ORDERED: Lorazepam PYXIS KEY PRN (11:59)
[2022-05-14] MEDS ORDERED: methylPREDNISolone SOD SUCC 125 mg 2 ML VIAL IV PRN (12:24)
[2022-05-14] MEDS ORDERED: Famotidine IV 10 MG/ML 2 ml VIAL (20 mg) IV PRN (12:25)
[2022-05-14] MEDS ORDERED: Famotidine IV 10 MG/ML 2 ml VIAL (20 mg) IV ONE (13:00)
[2022-05-14] MEDS ORDERED: PALONOSETRON HCL 0.05 MG/ML (0.25 MG) SYRINGE (0.05 MG/ML) IV ONE (13:00)
[2022-05-14] MEDS ORDERED: Dexamethasone IV 4 MG/ML 5 ML VIAL (20 MG) IVPB ONE (13:00)
[2022-05-14] MEDS ORDERED: APREPITANT 130 MG/18 ML VIAL IV ONE (13:00)
[2022-05-14] MEDS: Senna TAB 8.6 mg TAB PO SCH ×2 (13:10→21:15)
[2022-05-14] MEDS ORDERED: NS 0.9% IVPB ONE ×2 (14:00→15:30)
[2022-05-14] MEDS ORDERED: PACLITAXEL IVPB ONE (14:00)
[2022-05-14] MEDS ORDERED: CARBOPLATIN IVPB ONE (15:30)
[2022-05-14] MEDS: Magnesium Hydroxide LIQ 30 ML UDC PO SCH (21:23)
[2022-05-15] MEDS: Heparin 5000 UNITS/ML 1 mL VIAL SUBCUT SCH ×4 (05:51→20:08)
[2022-05-15 05:57] LABS: ABS Monocytes 0.2 10^3/ul (0-0.8); ABS Neutrophils 8.6 10^3/ul (1.5-7.7); Hematocrit 24 % (35-47); Hemoglobin 7.5 g/dL (12.0-16.0); Mean Corpuscular HGB Conc 32 g/dL (31-36); Mean Corpuscular Hemoglobin 27 pg (27-31); Mean Corpuscular Volume 87 fL (80-97); Mean Platelet Volume 7.4 fL (7.4-10.4); Nucleated Red Blood Cells % 0.1; Platelet Count 249 10^3/uL (150-450); Red Blood Count 2.74 10^6 /uL (3.70-4.87); Red Cell Distribution Width 17 % (10-15); White Blood Count 9.8 10^3/uL (3.5-10.8)
[2022-05-15 06:32] LABS: Albumin 2.5 g/dL (3.2-5.2); Albumin/Globulin Ratio 0.9 (1-3); Calcium 8.4 mg/dL (8.6-10.3); Globulin 2.9 g/dL (2-4); Magnesium 2.4 mg/dL (1.9-2.7); Total Bilirubin 0.2 mg/dL (0.2-1.0); Total Protein 5.4 g/dL (6.4-8.9); eGFR CKD-EPI 12.6 (>60)
[2022-05-15] MEDS ORDERED: Dextrose 50% VIAL 50 ml IV ONE (07:13)
[2022-05-15] MEDS: Cholecalciferol (VIT D3) 1,000 unit TAB PO SCH (10:36)
[2022-05-15] MEDS: Senna TAB 8.6 mg TAB PO SCH ×2 (10:36→20:07)
[2022-05-15] MEDS: Isosorbide Mononit ER 30mg TAB PO SCH (10:37)
[2022-05-15] MEDS: Magnesium Hydroxide LIQ 30 ML UDC PO SCH ×3 (10:37→20:08)
[2022-05-15] MEDS: Aspirin EC 81 mg TAB.EC (enteric coated) PO SCH (10:37)
[2022-05-15] MEDS: Saline NASAL SPRAY 0.65% BTL BOTH NARES SCH ×2 (10:37→20:26)
[2022-05-15] MEDS: PTO: Multivitamins/Mins AREDS2 (NF) CAP PO SCH ×2 (10:39→20:13)
[2022-05-15 15:55] LABS: Calcium 8.6 mg/dL (8.6-10.3); eGFR CKD-EPI 12.8 (>60)
[2022-05-15 16:05] LABS: Potassium 5.8 mmol/L (3.5-5.0)
[2022-05-15] MEDS: Patiromer POWDER 8.4 GM PAK PO SCH (20:13)
[2022-05-16] MEDS: Magnesium Hydroxide LIQ 30 ML UDC PO SCH ×4 (01:23→20:22)
[2022-05-16] MEDS: Heparin 5000 UNITS/ML 1 mL VIAL SUBCUT SCH ×3 (05:53→20:14)
[2022-05-16 05:56] LABS: Hematocrit 23 % (35-47); Mean Corpuscular HGB Conc 31 g/dL (31-36); Mean Corpuscular Hemoglobin 27 pg (27-31); Mean Corpuscular Volume 88 fL (80-97); Mean Platelet Volume 7.3 fL (7.4-10.4); Platelet Count 244 10^3/uL (150-450); Red Blood Count 2.61 10^6 /uL (3.70-4.87); Red Cell Distribution Width 18 % (10-15); White Blood Count 12.5 10^3/uL (3.5-10.8)
[2022-05-16 06:19] LABS: Calcium 8.5 mg/dL (8.6-10.3); Magnesium 2.8 mg/dL (1.9-2.7); Phosphorus 3.9 mg/dL (2.5-5.0); Uric Acid 10.8 mg/dL (2.3-6.6); eGFR CKD-EPI 12.5 (>60)
[2022-05-16 06:27] LABS: Potassium 6.3 mmol/L (3.5-5.0)
[2022-05-16] MEDS ORDERED: Dextrose 50% Syringe 50 ml 25 GM/50 ML SYRINGE IV PUSH ONE (06:36)
[2022-05-16] MEDS: Isosorbide Mononit ER 30mg TAB PO SCH (10:20)
[2022-05-16] MEDS: Senna TAB 8.6 mg TAB PO SCH ×2 (10:21→20:13)
[2022-05-16] MEDS: Cholecalciferol (VIT D3) 1,000 unit TAB PO SCH (10:21)
[2022-05-16] MEDS: Aspirin EC 81 mg TAB.EC (enteric coated) PO SCH (10:22)
[2022-05-16] MEDS: Saline NASAL SPRAY 0.65% BTL BOTH NARES SCH ×2 (10:24→20:23)
[2022-05-16] MEDS: PTO: Multivitamins/Mins AREDS2 (NF) CAP PO SCH ×2 (10:25→20:14)
[2022-05-16 10:32] LABS: Hepatitis B Surface Antigen Nonreactive (Nonreactive)
[2022-05-16 10:37] LABS: Hepatitis B Core IgM Nonreactive (Nonreactive)
[2022-05-16 10:50] LABS: Hepatitis B Surface Ab Not Immune (Immune)
[2022-05-16 11:18] LABS: INR 0.94 (0.89-1.11)
[2022-05-16] MEDS ORDERED: Lorazepam PYXIS KEY PRN ×2 (11:52→11:53)
[2022-05-16] MEDS ORDERED: LORazepam 2 mg VIAL 1 ml IV PUSH PRN (11:53)
[2022-05-16] MEDS ORDERED: LORazepam 2 mg VIAL 1 ml IV PUSH ONE (11:53)
[2022-05-16] MEDS ORDERED: Heparin 1,000 UNIT/ML 10 ml (10,000 UNITS) CATHLAB/DIALYSIS DIALYSIS ONE ×2 (12:00→17:00)
[2022-05-16] MEDS ORDERED: Lidocaine 1% MPF 2 ML VIAL INJ ONE (12:00)
[2022-05-16] MEDS: Patiromer POWDER 8.4 GM PAK PO SCH (20:15)
[2022-05-17] MEDS: Magnesium Hydroxide LIQ 30 ML UDC PO SCH ×4 (01:24→21:16)
[2022-05-17] MEDS: Heparin 1,000 UNIT/ML 10 ml (10,000 UNITS) CATHLAB/DIALYSIS DIALYSIS PRN ×2 (09:34→11:22)
[2022-05-17] MEDS: Cholecalciferol (VIT D3) 1,000 unit TAB PO SCH (10:25)
[2022-05-17] MEDS: Senna TAB 8.6 mg TAB PO SCH ×2 (10:26→21:17)
[2022-05-17] MEDS: Aspirin EC 81 mg TAB.EC (enteric coated) PO SCH (10:26)
[2022-05-17] MEDS: Isosorbide Mononit ER 30mg TAB PO SCH (10:26)
[2022-05-17] MEDS: PTO: Multivitamins/Mins AREDS2 (NF) CAP PO SCH ×2 (11:13→21:17)
[2022-05-17] MEDS: Saline NASAL SPRAY 0.65% BTL BOTH NARES SCH ×2 (11:14→21:17)
[2022-05-17 11:40] LABS: Hematocrit 26 % (35-47); Hemoglobin 8.2 g/dL (12.0-16.0); Mean Corpuscular HGB Conc 32 g/dL (31-36); Mean Corpuscular Hemoglobin 28 pg (27-31); Mean Corpuscular Volume 88 fL (80-97); Mean Platelet Volume 6.9 fL (7.4-10.4); Platelet Count 238 10^3/uL (150-450); Red Blood Count 2.95 10^6 /uL (3.70-4.87); Red Cell Distribution Width 18 % (10-15); White Blood Count 10.2 10^3/uL (3.5-10.8)
[2022-05-17 12:06] LABS: Calcium 8.3 mg/dL (8.6-10.3); Magnesium 2.4 mg/dL (1.9-2.7); Potassium 4.6 mmol/L (3.5-5.0); eGFR CKD-EPI 30.3 (>60)
[2022-05-17] MEDS ORDERED: LORazepam 2 mg VIAL 1 ml IV PUSH PRN (12:54)
[2022-05-17] MEDS ORDERED: Lorazepam PYXIS KEY PRN (12:54)
[2022-05-17] MEDS ORDERED: Midazolam 2 mg/2 ml VIAL 1 mg/ml 2 ml VIAL (2 mg) ONE (13:27)
[2022-05-17] MEDS ORDERED: fentaNYL 100 mcg/2 ml 50 MCG/ML VIAL ONE (13:27)
[2022-05-17] MEDS ORDERED: ceFAZolin 1 GM ADVAN 1 GM ADDV.VIAL IVPB ONE (13:27)
[2022-05-17] MEDS ORDERED: Sodium Phosphate ADULT ENEMA 133 ML BTL PR ONE (15:47)
[2022-05-17] MEDS ORDERED: Sodium Phosphate ADULT ENEMA 133 ML BTL PR SCH (16:00)
[2022-05-17] MEDS: Heparin 5000 UNITS/ML 1 mL VIAL SUBCUT SCH (21:18)
[2022-05-18] MEDS: Magnesium Hydroxide LIQ 30 ML UDC PO SCH ×4 (01:03→20:31)
[2022-05-18 06:02] LABS: Hematocrit 23 % (35-47); Hemoglobin 7.3 g/dL (12.0-16.0); Mean Corpuscular HGB Conc 32 g/dL (31-36); Mean Corpuscular Hemoglobin 28 pg (27-31); Mean Corpuscular Volume 88 fL (80-97); Mean Platelet Volume 7.3 fL (7.4-10.4); Platelet Count 184 10^3/uL (150-450); Red Blood Count 2.64 10^6 /uL (3.70-4.87); Red Cell Distribution Width 18 % (10-15); White Blood Count 6.2 10^3/uL (3.5-10.8)
[2022-05-18 06:28] LABS: Calcium 8.3 mg/dL (8.6-10.3); Magnesium 2.7 mg/dL (1.9-2.7); eGFR CKD-EPI 17.1 (>60)
[2022-05-18] MEDS: Heparin 5000 UNITS/ML 1 mL VIAL SUBCUT SCH ×3 (06:28→22:48)
[2022-05-18 06:32] LABS: Potassium 6.1 mmol/L (3.5-5.0)
[2022-05-18] MEDS ORDERED: Sodium Phosphate ADULT ENEMA 133 ML BTL PR ONE ×2 (08:00→08:15)
[2022-05-18] MEDS ORDERED: Midazolam 5 mg/5 ml VIAL 1 mg/ml 5 ml VIAL (5 mg) ONE (10:30)
[2022-05-18] MEDS ORDERED: fentaNYL 100 mcg/2 ml 50 MCG/ML VIAL ONE (10:30)
[2022-05-18] MEDS: Aspirin EC 81 mg TAB.EC (enteric coated) PO SCH (11:32)
[2022-05-18] MEDS: Cholecalciferol (VIT D3) 1,000 unit TAB PO SCH (11:32)
[2022-05-18] MEDS: Senna TAB 8.6 mg TAB PO SCH ×2 (11:33→20:29)
[2022-05-18] MEDS: Saline NASAL SPRAY 0.65% BTL BOTH NARES SCH ×2 (11:33→20:31)
[2022-05-18] MEDS: PTO: Multivitamins/Mins AREDS2 (NF) CAP PO SCH ×2 (11:33→20:30)
[2022-05-18] MEDS: Isosorbide Mononit ER 30mg TAB PO SCH (11:33)
[2022-05-18] MEDS ORDERED: Dextrose 50% Syringe 50 ml 25 GM/50 ML SYRINGE IV PUSH ONE (13:16)
[2022-05-18] MEDS ORDERED: D10W 500 ml BAG 500 ML IV ONE (14:00)
[2022-05-18] MEDS ORDERED: Polyethylene Glycol 3350 17 GM PACKET PO PRN (17:07)
[2022-05-18 21:39] LABS: eGFR CKD-EPI 16.3 (>60)
[2022-05-18 21:51] LABS: Potassium 5.4 mmol/L (3.5-5.0)
[2022-05-19] MEDS: Magnesium Hydroxide LIQ 30 ML UDC PO SCH ×4 (01:59→19:26)
[2022-05-19] MEDS: Heparin 5000 UNITS/ML 1 mL VIAL SUBCUT SCH ×3 (05:59→22:55)
[2022-05-19] MEDS ORDERED: Sodium Phosphate ADULT ENEMA 133 ML BTL PR ONE (08:00)
[2022-05-19] MEDS: Isosorbide Mononit ER 30mg TAB PO SCH (10:24)
[2022-05-19] MEDS: Cholecalciferol (VIT D3) 1,000 unit TAB PO SCH (10:24)
[2022-05-19] MEDS: Senna TAB 8.6 mg TAB PO SCH ×2 (10:25→19:37)
[2022-05-19] MEDS: Aspirin EC 81 mg TAB.EC (enteric coated) PO SCH (10:25)
[2022-05-19] MEDS: Saline NASAL SPRAY 0.65% BTL BOTH NARES SCH ×2 (10:28→19:29)
[2022-05-19] MEDS: PTO: Multivitamins/Mins AREDS2 (NF) CAP PO SCH ×2 (10:29→19:38)
[2022-05-19 11:20] LABS: Hematocrit 24 % (35-47); Hemoglobin 7.6 g/dL (12.0-16.0)
[2022-05-19 11:51] LABS: Calcium 8.2 mg/dL (8.6-10.3); Magnesium 2.7 mg/dL (1.9-2.7); eGFR CKD-EPI 15.9 (>60)
[2022-05-19 11:53] LABS: Potassium 5.7 mmol/L (3.5-5.0)
[2022-05-19 13:00] LABS: Phosphorus 4.7 mg/dL (2.5-5.0)
[2022-05-19] MEDS: Heparin 1,000 UNIT/ML 10 ml (10,000 UNITS) CATHLAB/DIALYSIS DIALYSIS PRN (15:25)
[2022-05-19] MEDS ORDERED: Heparin 1,000 UNIT/ML 10 ml (10,000 UNITS) CATHLAB/DIALYSIS DIALYSIS PRN (18:41)
[2022-05-20] MEDS: Magnesium Hydroxide LIQ 30 ML UDC PO SCH ×4 (00:10→22:19)
[2022-05-20] MEDS: Heparin 5000 UNITS/ML 1 mL VIAL SUBCUT SCH ×3 (06:34→22:20)
[2022-05-20 07:10] LABS: Hematocrit 19 % (35-47); Mean Corpuscular HGB Conc 32 g/dL (31-36); Mean Corpuscular Hemoglobin 28 pg (27-31); Mean Corpuscular Volume 87 fL (80-97); Platelet Count 133 10^3/uL (150-450); Red Blood Count 2.18 10^6 /uL (3.70-4.87); Red Cell Distribution Width 17 % (10-15); White Blood Count 2.7 10^3/uL (3.5-10.8)
[2022-05-20 07:56] LABS: Calcium 7.8 mg/dL (8.6-10.3); Magnesium 2.3 mg/dL (1.9-2.7); eGFR CKD-EPI 20.6 (>60)
[2022-05-20 08:30] LABS: Potassium 5.1 mmol/L (3.5-5.0)
[2022-05-20] MEDS: Isosorbide Mononit ER 30mg TAB PO SCH (11:30)
[2022-05-20] MEDS: Aspirin EC 81 mg TAB.EC (enteric coated) PO SCH (11:30)
[2022-05-20] MEDS: Cholecalciferol (VIT D3) 1,000 unit TAB PO SCH (11:30)
[2022-05-20] MEDS: Saline NASAL SPRAY 0.65% BTL BOTH NARES SCH ×2 (11:31→22:19)
[2022-05-20] MEDS: PTO: Multivitamins/Mins AREDS2 (NF) CAP PO SCH ×2 (11:31→22:18)
[2022-05-20] MEDS: Senna TAB 8.6 mg TAB PO SCH ×2 (11:31→22:19)
[2022-05-20 12:12] LABS: Hematocrit 23 % (35-47); Hemoglobin 7.2 g/dL (12.0-16.0); Mean Corpuscular HGB Conc 31 g/dL (31-36); Mean Corpuscular Hemoglobin 27 pg (27-31); Mean Corpuscular Volume 87 fL (80-97); Mean Platelet Volume 7.3 fL (7.4-10.4); Platelet Count 142 10^3/uL (150-450); Red Blood Count 2.64 10^6 /uL (3.70-4.87); Red Cell Distribution Width 17 % (10-15); White Blood Count 2.9 10^3/uL (3.5-10.8)
[2022-05-20 13:00] LABS: ABS Eosinophils 0.1 10^3/ul (0-0.6); ABS Lymphocytes 0.8 10^3/ul (1.0-4.8); ABS Monocytes 0.1 10^3/ul (0-0.8); ABS Neutrophils 1.6 10^3/ul (1.5-7.7); Lymphocyte % 30.5 %; Nucleated Red Blood Cells % 0.1
[2022-05-20 13:29] LABS: ABS Eosinophils 0.1 10^3/ul (0-0.6); ABS Lymphocytes 0.8 10^3/ul (1.0-4.8); ABS Monocytes 0.2 10^3/ul (0-0.8); ABS Neutrophils 1.8 10^3/ul (1.5-7.7); Eosinophil % 3.3 %; Lymphocyte % 26.5 %
[2022-05-20] MEDS ORDERED: fentaNYL 100 mcg/2 ml 50 MCG/ML VIAL ONE (15:55)
[2022-05-20] MEDS ORDERED: Midazolam 5 mg/5 ml VIAL 1 mg/ml 5 ml VIAL (5 mg) ONE (15:56)
[2022-05-21] MEDS: Magnesium Hydroxide LIQ 30 ML UDC PO SCH ×3 (02:17→14:04)
[2022-05-21] MEDS: Heparin 5000 UNITS/ML 1 mL VIAL SUBCUT SCH ×3 (05:55→21:50)
[2022-05-21 05:57] LABS: Hematocrit 20 % (35-47); Hemoglobin 6.4 g/dL (12.0-16.0); Mean Corpuscular HGB Conc 32 g/dL (31-36); Mean Corpuscular Hemoglobin 28 pg (27-31); Mean Corpuscular Volume 86 fL (80-97); Mean Platelet Volume 7.5 fL (7.4-10.4); Platelet Count 121 10^3/uL (150-450); Red Cell Distribution Width 18 % (10-15); White Blood Count 2.5 10^3/uL (3.5-10.8)
[2022-05-21 06:40] LABS: ABS Eosinophils 0.1 10^3/ul (0-0.6); ABS Lymphocytes 0.8 10^3/ul (1.0-4.8); ABS Monocytes 0.2 10^3/ul (0-0.8); ABS Neutrophils 1.5 10^3/ul (1.5-7.7); Eosinophil % 2.3 %; Lymphocyte % 31.3 %; Nucleated Red Blood Cells % 0.1
[2022-05-21 06:58] LABS: Magnesium 2.2 mg/dL (1.9-2.7); Phosphorus 3.7 mg/dL (2.5-5.0); Potassium 4.5 mmol/L (3.5-5.0); eGFR CKD-EPI 23.9 (>60)
[2022-05-21] MEDS: Cholecalciferol (VIT D3) 1,000 unit TAB PO SCH (10:25)
[2022-05-21] MEDS: Senna TAB 8.6 mg TAB PO SCH ×2 (10:26→20:33)
[2022-05-21] MEDS: Saline NASAL SPRAY 0.65% BTL BOTH NARES SCH ×2 (10:26→20:33)
[2022-05-21] MEDS: Aspirin EC 81 mg TAB.EC (enteric coated) PO SCH (10:26)
[2022-05-21] MEDS: PTO: Multivitamins/Mins AREDS2 (NF) CAP PO SCH ×2 (10:26→20:30)
[2022-05-21] MEDS: Isosorbide Mononit ER 30mg TAB PO SCH (10:27)
[2022-05-21] MEDS ORDERED: methylPREDNISolone SOD SUCC 125 mg 2 ML VIAL IV PRN (13:30)
[2022-05-21] MEDS ORDERED: Famotidine IV 10 MG/ML 2 ml VIAL (20 mg) IV PRN (13:30)
[2022-05-21] MEDS ORDERED: PACLITAXEL IVPB ONE (14:00)
[2022-05-21] MEDS ORDERED: NS 0.9% IVPB ONE (14:00)
[2022-05-21] MEDS: Dexamethasone IV 4 MG/ML VIAL 1 ml VIAL IV SLOW PU ONE ×2 (14:04→15:43)
[2022-05-21] MEDS: Famotidine IV 10 MG/ML 2 ml VIAL (20 mg) IV SLOW PU ONE ×2 (14:04→15:42)
[2022-05-21] MEDS ORDERED: PEG 3000 GI LAVAGE 1 GALLON PO ONE (15:01)
[2022-05-22] MEDS: Heparin 5000 UNITS/ML 1 mL VIAL SUBCUT SCH ×3 (05:47→20:57)
[2022-05-22 06:34] LABS: Hematocrit 23 % (35-47); Hemoglobin 7.3 g/dL (12.0-16.0); Mean Corpuscular HGB Conc 33 g/dL (31-36); Mean Corpuscular Hemoglobin 28 pg (27-31); Mean Corpuscular Volume 85 fL (80-97); Mean Platelet Volume 7.7 fL (7.4-10.4); Platelet Count 125 10^3/uL (150-450); Red Blood Count 2.64 10^6 /uL (3.70-4.87); Red Cell Distribution Width 17 % (10-15); White Blood Count 2.3 10^3/uL (3.5-10.8)
[2022-05-22 06:56] LABS: Calcium 8.1 mg/dL (8.6-10.3); Magnesium 2.3 mg/dL (1.9-2.7); Potassium 4.8 mmol/L (3.5-5.0); eGFR CKD-EPI 17.6 (>60)
[2022-05-22] MEDS ORDERED: PEG 3000 GI LAVAGE 1 GALLON PO ONE (09:00)
[2022-05-22] MEDS: Isosorbide Mononit ER 30mg TAB PO SCH (09:39)
[2022-05-22] MEDS: Aspirin EC 81 mg TAB.EC (enteric coated) PO SCH (09:40)
[2022-05-22] MEDS: Cholecalciferol (VIT D3) 1,000 unit TAB PO SCH (09:40)
[2022-05-22] MEDS: Senna TAB 8.6 mg TAB PO SCH ×2 (09:41→21:00)
[2022-05-22] MEDS: Saline NASAL SPRAY 0.65% BTL BOTH NARES SCH ×2 (09:45→20:57)
[2022-05-22] MEDS: PTO: Multivitamins/Mins AREDS2 (NF) CAP PO SCH ×2 (09:53→20:57)
[2022-05-22 19:34] LABS: ABS Lymphocytes 0.6 10^3/ul (1.0-4.8); ABS Monocytes 0.1 10^3/ul (0-0.8); ABS Neutrophils 1.6 10^3/ul (1.5-7.7); Eosinophil % 0.2 %; Lymphocyte % 27.1 %; Nucleated Red Blood Cells % 0.1
[2022-05-23] MEDS: Heparin 5000 UNITS/ML 1 mL VIAL SUBCUT SCH ×3 (06:21→20:44)
[2022-05-23 06:55] LABS: ABS Lymphocytes 0.8 10^3/ul (1.0-4.8); ABS Monocytes 0.1 10^3/ul (0-0.8); Eosinophil % 1.3 %; Hematocrit 23 % (35-47); Hemoglobin 7.2 g/dL (12.0-16.0); Lymphocyte % 42.9 %; Mean Corpuscular HGB Conc 32 g/dL (31-36); Mean Corpuscular Hemoglobin 28 pg (27-31); Mean Corpuscular Volume 86 fL (80-97); Mean Platelet Volume 7.4 fL (7.4-10.4); Nucleated Red Blood Cells % 0.1; Platelet Count 110 10^3/uL (150-450); Red Blood Count 2.62 10^6 /uL (3.70-4.87); Red Cell Distribution Width 17 % (10-15)
[2022-05-23 08:02] LABS: Calcium 8.4 mg/dL (8.6-10.3); Magnesium 2.2 mg/dL (1.9-2.7); Potassium 4.4 mmol/L (3.5-5.0); eGFR CKD-EPI 18.2 (>60)
[2022-05-23] MEDS: PTO: Multivitamins/Mins AREDS2 (NF) CAP PO SCH ×2 (08:40→20:42)
[2022-05-23] MEDS: Aspirin EC 81 mg TAB.EC (enteric coated) PO SCH (08:40)
[2022-05-23] MEDS: Senna TAB 8.6 mg TAB PO SCH ×2 (08:40→20:42)
[2022-05-23] MEDS: Isosorbide Mononit ER 30mg TAB PO SCH (08:40)
[2022-05-23] MEDS: Cholecalciferol (VIT D3) 1,000 unit TAB PO SCH (08:40)
[2022-05-23] MEDS: Saline NASAL SPRAY 0.65% BTL BOTH NARES SCH ×2 (08:41→20:43)
[2022-05-24] MEDS: Heparin 5000 UNITS/ML 1 mL VIAL SUBCUT SCH ×3 (06:27→21:22)
[2022-05-24 10:06] LABS: Hematocrit 22 % (35-47); Hemoglobin 7.2 g/dL (12.0-16.0); Mean Corpuscular HGB Conc 32 g/dL (31-36); Mean Corpuscular Hemoglobin 28 pg (27-31); Mean Corpuscular Volume 86 fL (80-97); Platelet Count 103 10^3/uL (150-450); Red Blood Count 2.58 10^6 /uL (3.70-4.87); Red Cell Distribution Width 17 % (10-15); White Blood Count 1.4 10^3/uL (3.5-10.8)
[2022-05-24 10:19] LABS: Calcium 8.5 mg/dL (8.6-10.3); Potassium 4.2 mmol/L (3.5-5.0)
[2022-05-24 10:25] LABS: eGFR CKD-EPI 15.1 (>60)
[2022-05-24] MEDS: Senna TAB 8.6 mg TAB PO SCH ×2 (10:35→21:42)
[2022-05-24] MEDS: Aspirin EC 81 mg TAB.EC (enteric coated) PO SCH (10:35)
[2022-05-24] MEDS: Cholecalciferol (VIT D3) 1,000 unit TAB PO SCH (10:35)
[2022-05-24] MEDS: Isosorbide Mononit ER 30mg TAB PO SCH (10:36)
[2022-05-24] MEDS: Saline NASAL SPRAY 0.65% BTL BOTH NARES SCH ×2 (10:37→21:16)
[2022-05-24] MEDS: PTO: Multivitamins/Mins AREDS2 (NF) CAP PO SCH ×2 (10:45→21:46)
[2022-05-24 11:10] LABS: ABS Lymphocytes 0.7 10^3/ul (1.0-4.8); ABS Monocytes 0.1 10^3/ul (0-0.8); ABS Neutrophils 0.6 10^3/ul (1.5-7.7); Eosinophil % 1.1 %; Lymphocyte % 49.4 %; Nucleated Red Blood Cells % 1.1
[2022-05-24] MEDS ORDERED: Oxymetazoline 0.05% NASAL SPR 15 ML BTL BOTH NARES ONE (21:13)
[2022-05-24 21:35] LABS: Hematocrit 21 % (35-47); Hemoglobin 6.5 g/dL (12.0-16.0)
[2022-05-25] MEDS: Heparin 5000 UNITS/ML 1 mL VIAL SUBCUT SCH (05:39)
[2022-05-25 06:21] LABS: Hematocrit 20 % (35-47); Hemoglobin 6.4 g/dL (12.0-16.0); Mean Corpuscular HGB Conc 32 g/dL (31-36); Mean Corpuscular Hemoglobin 28 pg (27-31); Mean Corpuscular Volume 87 fL (80-97); Mean Platelet Volume 8.1 fL (7.4-10.4); Platelet Count 72 10^3/uL (150-450); Red Blood Count 2.31 10^6 /uL (3.70-4.87); Red Cell Distribution Width 17 % (10-15); White Blood Count 1.3 10^3/uL (3.5-10.8)
[2022-05-25 06:43] LABS: Calcium 8.4 mg/dL (8.6-10.3); Potassium 4.6 mmol/L (3.5-5.0); eGFR CKD-EPI 15.2 (>60)
[2022-05-25] MEDS: Cholecalciferol (VIT D3) 1,000 unit TAB PO SCH (08:56)
[2022-05-25] MEDS: Senna TAB 8.6 mg TAB PO SCH ×2 (08:56→21:00)
[2022-05-25] MEDS: Aspirin EC 81 mg TAB.EC (enteric coated) PO SCH (08:56)
[2022-05-25] MEDS: Isosorbide Mononit ER 30mg TAB PO SCH (08:56)
[2022-05-25] MEDS: Saline NASAL SPRAY 0.65% BTL BOTH NARES SCH ×2 (08:58→20:45)
[2022-05-25] MEDS: PTO: Multivitamins/Mins AREDS2 (NF) CAP PO SCH ×2 (09:00→21:02)
[2022-05-25 10:37] LABS: Anisocytosis 1+
[2022-05-25 10:38] LABS: ABS Lymphocytes 0.8 10^3/ul (1.0-4.8); ABS Monocytes 0.1 10^3/ul (0-0.8); ABS Neutrophils 0.4 10^3/ul (1.5-7.7); Lymphocyte % 58.9 %; Nucleated Red Blood Cells % 0.6
[2022-05-25 14:27] LABS: Hematocrit 23 % (35-47); Hemoglobin 7.5 g/dL (12.0-16.0)
[2022-05-25] MEDS ORDERED: Furosemide 20 mg/2 ml IV VIAL IV ONE (14:55)
[2022-05-25 22:22] LABS: Hematocrit 26 % (35-47); Hemoglobin 8.6 g/dL (12.0-16.0)
[2022-05-26 05:26] LABS: ABS Lymphocytes 0.8 10^3/ul (1.0-4.8); ABS Monocytes 0.1 10^3/ul (0-0.8); ABS Neutrophils 0.4 10^3/ul (1.5-7.7); Eosinophil % 0.7 %; Hematocrit 27 % (35-47); Hemoglobin 9.1 g/dL (12.0-16.0); Lymphocyte % 58.6 %; Mean Corpuscular HGB Conc 33 g/dL (31-36); Mean Corpuscular Hemoglobin 29 pg (27-31); Mean Corpuscular Volume 88 fL (80-97); Mean Platelet Volume 7.1 fL (7.4-10.4); Nucleated Red Blood Cells % 0.4; Platelet Count 53 10^3/uL (150-450); Red Cell Distribution Width 16 % (10-15); White Blood Count 1.4 10^3/uL (3.5-10.8)
[2022-05-26 05:58] LABS: Calcium 8.5 mg/dL (8.6-10.3); Magnesium 1.8 mg/dL (1.9-2.7); Potassium 4.6 mmol/L (3.5-5.0); eGFR CKD-EPI 16.5 (>60)
[2022-05-26] MEDS: Cholecalciferol (VIT D3) 1,000 unit TAB PO SCH (09:59)
[2022-05-26] MEDS: Aspirin EC 81 mg TAB.EC (enteric coated) PO SCH (09:59)
[2022-05-26] MEDS: Isosorbide Mononit ER 30mg TAB PO SCH (09:59)
[2022-05-26] MEDS: Senna TAB 8.6 mg TAB PO SCH ×2 (10:00→19:53)
[2022-05-26] MEDS: Saline NASAL SPRAY 0.65% BTL BOTH NARES SCH ×2 (10:03→20:09)
[2022-05-26] MEDS: PTO: Multivitamins/Mins AREDS2 (NF) CAP PO SCH ×2 (10:05→20:09)
[2022-05-26] MEDS ORDERED: Magnesium Sulfate IV 1GM/100ML 1 GM/100 ML BAG IV ONE (10:08)
[2022-05-27 06:45] LABS: ABS Lymphocytes 0.8 10^3/ul (1.0-4.8); ABS Monocytes 0.2 10^3/ul (0-0.8); ABS Neutrophils 0.6 10^3/ul (1.5-7.7); Eosinophil % 0.8 %; Hematocrit 26 % (35-47); Hemoglobin 8.6 g/dL (12.0-16.0); Mean Corpuscular HGB Conc 33 g/dL (31-36); Mean Corpuscular Hemoglobin 29 pg (27-31); Mean Corpuscular Volume 89 fL (80-97); Mean Platelet Volume 7.4 fL (7.4-10.4); Nucleated Red Blood Cells % 0.1; Platelet Count 47 10^3/uL (150-450); Red Blood Count 2.95 10^6 /uL (3.70-4.87); Red Cell Distribution Width 17 % (10-15); White Blood Count 1.7 10^3/uL (3.5-10.8)
[2022-05-27 07:42] LABS: Calcium 8.4 mg/dL (8.6-10.3); Magnesium 1.8 mg/dL (1.9-2.7); Potassium 4.4 mmol/L (3.5-5.0); eGFR CKD-EPI 16.9 (>60)
[2022-05-27] MEDS: PTO: Multivitamins/Mins AREDS2 (NF) CAP PO SCH ×3 (08:32→20:26)
[2022-05-27] MEDS: Senna TAB 8.6 mg TAB PO SCH ×2 (08:33→20:25)
[2022-05-27] MEDS: Isosorbide Mononit ER 30mg TAB PO SCH (08:33)
[2022-05-27] MEDS: Aspirin EC 81 mg TAB.EC (enteric coated) PO SCH (08:33)
[2022-05-27] MEDS: Cholecalciferol (VIT D3) 1,000 unit TAB PO SCH (08:33)
[2022-05-27] MEDS: Saline NASAL SPRAY 0.65% BTL BOTH NARES SCH ×2 (08:40→20:28)
[2022-05-27] MEDS ORDERED: Magnesium Sulfate 2 gm BAG 2 GM/50 ML BAG IVPB ONE (16:49)
[2022-05-28 05:02] LABS: Albumin 2.7 g/dL (3.2-5.2); Albumin/Globulin Ratio 1.1 (1-3); Calcium 8.5 mg/dL (8.6-10.3); Globulin 2.4 g/dL (2-4); Magnesium 2.3 mg/dL (1.9-2.7); Potassium 4.4 mmol/L (3.5-5.0); Total Bilirubin 0.3 mg/dL (0.2-1.0); Total Protein 5.1 g/dL (6.4-8.9); eGFR CKD-EPI 17.8 (>60)
[2022-05-28 05:16] LABS: Hematocrit 27 % (35-47); Hemoglobin 8.6 g/dL (12.0-16.0); Mean Corpuscular HGB Conc 32 g/dL (31-36); Mean Corpuscular Hemoglobin 28 pg (27-31); Mean Corpuscular Volume 88 fL (80-97); Mean Platelet Volume 7.8 fL (7.4-10.4); Platelet Count 50 10^3/uL (150-450); Red Blood Count 3.03 10^6 /uL (3.70-4.87); Red Cell Distribution Width 17 % (10-15); White Blood Count 2.5 10^3/uL (3.5-10.8)
[2022-05-28 05:22] LABS: Anisocytosis 1+
[2022-05-28 05:23] LABS: Polychromasia 1+
[2022-05-28 05:24] LABS: ABS Lymphocytes 1.3 10^3/ul (1.0-4.8); ABS Monocytes 0.2 10^3/ul (0-0.8); ABS Neutrophils 0.9 10^3/ul (1.5-7.7); Eosinophil % 0.6 %; Lymphocyte % 51.9 %; Nucleated Red Blood Cells % 0.2
[2022-05-28] MEDS: Cholecalciferol (VIT D3) 1,000 unit TAB PO SCH (09:29)
[2022-05-28] MEDS: Saline NASAL SPRAY 0.65% BTL BOTH NARES SCH (09:29)
[2022-05-28] MEDS: Isosorbide Mononit ER 30mg TAB PO SCH (09:29)
[2022-05-28] MEDS: Aspirin EC 81 mg TAB.EC (enteric coated) PO SCH (09:29)
[2022-05-28] MEDS: Senna TAB 8.6 mg TAB PO SCH (09:29)
[2022-05-28] MEDS: PTO: Multivitamins/Mins AREDS2 (NF) CAP PO SCH (09:30)
[2022-05-28 11:37] VITALS: BP 121/67
== END 2022-05-28 14:25 | DRG 177 ==
LOC: EDHOLD 09:36 → ED 09:36 → SUATTDRO 12:15 → MEDTELE 19:43 → MED 05-01 18:51
PROVIDERS: ADMIT Internal Medicine; ATTEND Internal Medicine

== ENCOUNTER 2023-02-18 11:56 | Inpatient (IN) ==
[~2023-02-18 11:56] MED LIST changes: +Acetaminophen IV 1 GM/100ML 1,000 MG/100 ML BAG IV ONE; -Atenolol TAB* 25 MG PO ONE; +Clindamycin 600 MG/NS BAG IV ONE; -Flumazenil* 0.1 MG/ML 5 ML MDV ONE; -Heparin 2 UNITS/ML IVPREMIX* 2,000 ML IV ONE; -Iodixanol 320 (CONTRAST) 100 ML SDV ONE; -LORazepam TAB(*) 1 MG ONE; -Lidocaine 1% INJ* 10 MG/ML 30 ML SDV ONE; -Losartan TAB* 25 MG PO ONE; -Midazolam* 1 MG/ML 5 ML VIAL (5 MG) ONE; -Naloxone* 0.4 MG/ML 1 ML VIAL ONE; -amLODIPine TAB* 5 MG PO ONE; -fentaNYL* 50 MCG/ML 2 ML VIAL (100 MCG VIAL) ONE; -hydrALAZINE IV* 20 MG/ML VIAL ONE
[2023-02-18] MEDS ORDERED: Lidocaine 1% MPF 5 ML VIAL ONE ×2 (12:43→14:39)
[2023-02-18] MEDS ORDERED: Heparin 2 UNITS/ML IVPREMIX 1,000 UNIT/500 ML BAG IV ONE (12:43)
[2023-02-18] MEDS ORDERED: Midazolam 5 mg/5 ml VIAL 1 mg/ml 5 ml VIAL (5 mg) ONE ×2 (13:01→14:38)
[2023-02-18] MEDS ORDERED: Heparin 5000 UNITS/ML 1 mL VIAL ONE (13:02)
[2023-02-18] MEDS ORDERED: Heparin 1,000 UNIT/ML 10 ml (10,000 UNITS) CATHLAB/DIALYSIS ONE ×2 (13:02→14:38)
[2023-02-18] MEDS ORDERED: fentaNYL 100 mcg/2 ml 50 MCG/ML VIAL ONE ×2 (13:02→14:38)
[2023-02-18] MEDS ORDERED: VERAPAMIL 2.5 MG/ML 2 ML VIAL ** 5 mg/2 ml ONE (14:38)
[2023-02-18] MEDS ORDERED: nitroGLYCERIN DRIP 0 MCG/0 ML BTL ONE (14:39)
[2023-02-18] MEDS ORDERED: NS 0.9% 1000 ml BAG 100 ML IV PRN (15:48)
[2023-02-18] MEDS ORDERED: NS 0.9% 1000 ml BAG 200 ML IV PRN (15:48)
[2023-02-18] MEDS ORDERED: Albumin Human 25% 25 GM/100 ML BTL IV PRN (15:48)
[2023-02-18] MEDS: Heparin 1,000 UNIT/ML 10 ml (10,000 UNITS) CATHLAB/DIALYSIS DIALYSIS PRN ×3 (16:20→18:35)
[2023-02-18] MEDS ORDERED: Dextrose 50% Syringe 50 ml 25 GM/50 ML SYRINGE IV PUSH PRN (16:21)
[2023-02-18 16:42] LABS: ABS Eosinophils 0.2 10^3/uL (0.0-0.5); ABS Lymphocytes 1.6 10^3/uL (1.0-4.8); ABS Monocytes 0.5 10^3/uL (0.0-0.9); ABS Neutrophils 6.2 10^3/uL (1.5-7.6); ABS Nucleated RBC 0.01 10^3/ul; Eosinophil % 2.7 %; Hematocrit 26.1 % (35-45); Hemoglobin 8.8 g/dL (11.5-14.3); Lymphocyte % 18.5 %; Mean Corpuscular Hemoglobin 33.2 pg (27-33); Mean Corpuscular Hgb Conc 33.9 g/dL (31-36); Mean Corpuscular Volume 97.9 fL (80-97); Mean Platelet Volume 6.7 fL (7.5-11.2); Nucleated Red Blood Cells % 0.1 /100 WBC (0.0-0.4); Platelet Count 139 10^3/uL (150-450); Red Blood Count 2.67 10^6/uL (3.63-4.92); Red Cell Distribution Width 14.3 % (12-17); White Blood Count 8.5 10^3/uL (3.8-11.8)
[2023-02-18 17:37] LABS: Albumin 3.7 g/dL (3.2-5.2); Albumin/Globulin Ratio 1.3 (1-3); Calcium 9.2 mg/dL (8.6-10.3); Creatinine, Serum 5.34 mg/dL (0.51-0.95); Globulin 2.8 g/dL (2-4); Potassium 5.2 mmol/L (3.5-5.0); Total Bilirubin 0.3 mg/dL (0.2-1.0); Total Protein 6.5 g/dL (6.4-8.9); eGFR CKD-EPI 7.6 (>60)
[2023-02-18 19:19] LABS: Hepatitis B Surface Antigen Nonreactive (Nonreactive)
[2023-02-18 19:36] LABS: Hepatitis B Surface Ab Not Immune (Immune)
[2023-02-18 19:37] LABS: Hepatitis C Antibody Negative (Negative)
[2023-02-18] MEDS ORDERED: Senna TAB 8.6 mg TAB PO ONE (22:01)
[2023-02-18] MEDS: Heparin 5000 UNITS/ML 1 mL VIAL SUBCUT SCH (22:03)
[2023-02-19 06:11] LABS: ABS Eosinophils 0.3 10^3/uL (0.0-0.5); ABS Lymphocytes 1.9 10^3/uL (1.0-4.8); ABS Monocytes 0.4 10^3/uL (0.0-0.9); ABS Neutrophils 3.2 10^3/uL (1.5-7.6); Hematocrit 24.1 % (35-45); Hemoglobin 8.5 g/dL (11.5-14.3); Lymphocyte % 32.7 %; Mean Corpuscular Hgb Conc 35.1 g/dL (31-36); Mean Corpuscular Volume 96.9 fL (80-97); Mean Platelet Volume 6.6 fL (7.5-11.2); Nucleated Red Blood Cells % 0.1 /100 WBC (0.0-0.4); Platelet Count 135 10^3/uL (150-450); Red Blood Count 2.49 10^6/uL (3.63-4.92); Red Cell Distribution Width 13.9 % (12-17); White Blood Count 5.9 10^3/uL (3.8-11.8)
[2023-02-19 06:25] LABS: Calcium 8.9 mg/dL (8.6-10.3); Magnesium 2.1 mg/dL (1.9-2.7); Potassium 4.8 mmol/L (3.5-5.0)
[2023-02-19 06:31] LABS: Creatinine, Serum 4.27 mg/dL (0.51-0.95); Phosphorus 4.7 mg/dL (2.5-5.0)
[2023-02-19] MEDS: Heparin 5000 UNITS/ML 1 mL VIAL SUBCUT SCH ×3 (07:40→22:10)
[2023-02-19] MEDS: Isosorbide Mononit ER 30mg TAB PO SCH (09:40)
[2023-02-19] MEDS: Cholecalciferol (VIT D3) 1,000 unit TAB PO SCH (09:40)
[2023-02-19] MEDS: Aspirin EC 81 mg TAB.EC (enteric coated) PO SCH (09:41)
[2023-02-19] MEDS: Heparin 1,000 UNIT/ML 10 ml (10,000 UNITS) CATHLAB/DIALYSIS DIALYSIS PRN ×4 (10:40→14:00)
[2023-02-20] MEDS: Heparin 5000 UNITS/ML 1 mL VIAL SUBCUT SCH ×2 (05:48→14:52)
[2023-02-20 06:06] LABS: ABS Eosinophils 0.3 10^3/uL (0.0-0.5); ABS Lymphocytes 2.6 10^3/uL (1.0-4.8); ABS Monocytes 0.6 10^3/uL (0.0-0.9); ABS Neutrophils 2.6 10^3/uL (1.5-7.6); ABS Nucleated RBC 0.01 10^3/ul; Eosinophil % 4.3 %; Hematocrit 27.2 % (35-45); Hemoglobin 9.4 g/dL (11.5-14.3); Lymphocyte % 42.7 %; Mean Corpuscular Hemoglobin 33.5 pg (27-33); Mean Corpuscular Hgb Conc 34.7 g/dL (31-36); Mean Corpuscular Volume 96.5 fL (80-97); Nucleated Red Blood Cells % 0.1 /100 WBC (0.0-0.4); Platelet Count 144 10^3/uL (150-450); Red Blood Count 2.82 10^6/uL (3.63-4.92); Red Cell Distribution Width 13.9 % (12-17); White Blood Count 6.1 10^3/uL (3.8-11.8)
[2023-02-20 06:22] LABS: Creatinine, Serum 3.83 mg/dL (0.51-0.95); Magnesium 1.8 mg/dL (1.9-2.7); Phosphorus 4.8 mg/dL (2.5-5.0); Potassium 4.3 mmol/L (3.5-5.0); eGFR CKD-EPI 11.4 (>60)
[2023-02-20] MEDS: Heparin 1,000 UNIT/ML 10 ml (10,000 UNITS) CATHLAB/DIALYSIS DIALYSIS PRN ×4 (08:41→12:00)
[2023-02-20] MEDS: Aspirin EC 81 mg TAB.EC (enteric coated) PO SCH (08:48)
[2023-02-20] MEDS: Cholecalciferol (VIT D3) 1,000 unit TAB PO SCH (08:49)
[2023-02-20] MEDS: Isosorbide Mononit ER 30mg TAB PO SCH (08:49)
[2023-02-20 13:14] VITALS: BP 148/81
[2023-02-23 14:49] LABS: QuantiferonTb Gold Plus Result Negative (Negative); TB1 Ag minus Nil Result -0.04 IU/mL; TB2 Ag minus Nil Result -0.04 IU/mL
== END 2023-02-20 15:45 | disposition home or self-care (01) | DRG 674 ==
LOC: CHICATH 11:56 → MED 11:56 → SUATTDRO 15:32
PROVIDERS: ADMIT Internal Medicine Nephrology; ATTEND Internal Medicine

== ENCOUNTER 2023-07-11 07:50 | Observation (INO) ==
[2023-07-11] MEDS ORDERED: Albumin Human 25% 25 GM/100 ML BTL IV PRN (15:25)
[2023-07-11] MEDS ORDERED: NS 0.9% 1000 ml BAG 200 ML IV PRN (15:25)
[2023-07-11] MEDS ORDERED: NS 0.9% 1000 ml BAG 100 ML IV PRN (15:25)
[2023-07-11 20:52] LABS: Hepatitis B Surface Antigen Nonreactive (Nonreactive)
[2023-07-11 21:10] LABS: Hepatitis B Surface Ab Not Immune (Immune)
[2023-07-12] MEDS: Heparin 1,000 UNIT/ML 10 ml (10,000 UNITS) CATHLAB/DIALYSIS DIALYSIS PRN ×3 (08:20→11:05)
[2023-07-12] MEDS ORDERED: Isosorbide Mononit ER 30mg TAB PO SCH (09:00)
[2023-07-12] MEDS ORDERED: Aspirin EC 81 mg TAB.EC (enteric coated) PO SCH (09:00)
[2023-07-12] MEDS ORDERED: Pentoxifylline CR 400 mg TAB 400 MG PO SCH (09:00)
[2023-07-12] MEDS ORDERED: Cholecalciferol (VIT D3) 1,000 unit TAB PO SCH (09:00)
[2023-07-12 11:47] VITALS: BP 101/50
== END 2023-07-12 12:01 | disposition home or self-care (01) ==
LOC: MED 13:14 → INTOOBSV 13:14
PROVIDERS: ADMIT Hospitalist; ATTEND Hospitalist

== ENCOUNTER 2023-07-30 11:51 | Inpatient (IN) ==
[2023-07-30] MEDS ORDERED: Lactated Ringers 1000 ml BAG IV.FLUID IV ONE (12:29)
[2023-07-30] MEDS ORDERED: Iodixanol (CONTRAST) 320 MG/ML 100 ML SDV IV ONE (13:23)
[2023-07-30 13:30] LABS: ABS Eosinophils 0.1 10^3/uL (0.0-0.5); ABS Lymphocytes 1.4 10^3/uL (1.0-4.8); ABS Monocytes 0.6 10^3/uL (0.0-0.9); Eosinophil % 0.9 %; Hematocrit 23.6 % (35-45); Hemoglobin 7.9 g/dL (11.5-14.3); Lymphocyte % 16.9 %; Mean Corpuscular Hemoglobin 34.7 pg (27-33); Mean Corpuscular Hgb Conc 33.5 g/dL (31-36); Mean Corpuscular Volume 103.7 fL (80-97); Mean Platelet Volume 7.2 fL (7.5-11.2); Nucleated Red Blood Cells % 0.1 %/100WBC (0.0-0.8); Platelet Count 251 10^3/uL (150-450); Red Blood Count 2.28 10^6/uL (3.63-4.92); Red Cell Distribution Width 17.2 % (12-17); White Blood Count 8.2 10^3/uL (3.8-11.8)
[2023-07-30 13:44] LABS: Activated Partial Thrombo Time 31.2 seconds (26.0-38.0); INR 2.21 (0.83-1.13)
[2023-07-30 13:55] LABS: ALT < 3 U/L (7-52); Albumin 2.8 g/dL (3.2-5.2); Alkaline Phosphatase 54 U/L (35-149); Anion Gap 8 mmol/L (2-16); Blood Urea Nitrogen 52 mg/dL (6-24); C Reactive Protein 110.62 mg/L (<8.01); CO2 Carbon Dioxide 27 mmol/L (22-32); Calcium 8.1 mg/dL (8.6-10.3); Chloride 97 mmol/L (101-111); Creatinine, Serum 7.49 mg/dL (0.51-0.95); Globulin 2.8 g/dL (2-4); Glucose 70 mg/dL (70-100); High Sens Troponin Baseline 54 pg/mL (<15); Sodium 132 mmol/L (135-145); Total Bilirubin 0.4 mg/dL (0.2-1.0); Total Protein 5.6 g/dL (6.4-8.9); eGFR CKD-EPI 5.1 (>60)
[2023-07-30] MEDS ORDERED: fentaNYL 100 mcg/2 ml 50 MCG/ML VIAL IV SLOW PU ONE (15:02)
[2023-07-30 15:13] LABS: Magnesium 2.7 mg/dL (1.9-2.7); Potassium Redraw 5.7 mmol/L (3.5-5.0)
[2023-07-30] MEDS ORDERED: NS 0.9% 1000 ml BAG 100 ML IV PRN (16:13)
[2023-07-30] MEDS ORDERED: NS 0.9% 1000 ml BAG 200 ML IV PRN (16:13)
[2023-07-30] MEDS ORDERED: Albumin Human 25% 25 GM/100 ML BTL IV ONE (17:29)
[2023-07-30 18:28] LABS: Body Fluid Appearance Bloody; Body Fluid Color Red; Body Fluid Source Peritonial Fluid
[2023-07-30 18:32] LABS: Body Fluid Total Nucleated 2278 /mcL
[2023-07-30 18:59] LABS: Body Fluid Mono 2 %; Body Fluid Total Cells Counted 200
[2023-07-30 22:17] LABS: Hepatitis B Surface Antigen Nonreactive (Nonreactive)
[2023-07-30 22:34] LABS: Hepatitis B Surface Ab Not Immune (Immune)
[2023-07-30] MEDS ORDERED: NS 0.9% 1000 ml BAG 500 ML IV SCH (22:45)
[2023-07-31] MEDS ORDERED: NS 0.9% 500 ml BAG 500 ML IV ONE (00:37)
[2023-07-31] MEDS ORDERED: Dextrose 50% Syringe 50 ml 25 GM/50 ML SYRINGE IV PUSH PRN (09:44)
[2023-07-31] MEDS ORDERED: Remdesivir 100 mg Vial 200 MG in NS 0.9% 250 ml 210 ML IV ONE (09:47)
[2023-07-31] MEDS ORDERED: Magnesium Hydroxide LIQ 30 ML UDC PO PRN (09:55)
[2023-07-31 10:37] LABS: Hematocrit 28.3 % (35-45); Hemoglobin 9.5 g/dL (11.5-14.3); Mean Corpuscular Hemoglobin 34.4 pg (27-33); Mean Corpuscular Hgb Conc 33.7 g/dL (31-36); Mean Corpuscular Volume 102.1 fL (80-97); Mean Platelet Volume 7.3 fL (7.5-11.2); Platelet Count 276 10^3/uL (150-450); Red Blood Count 2.77 10^6/uL (3.63-4.92); Red Cell Distribution Width 17.2 % (12-17); White Blood Count 7.3 10^3/uL (3.8-11.8)
[2023-07-31 10:44] LABS: INR 2.09 (0.83-1.13)
[2023-07-31] MEDS: Dexamethasone IV 4 MG/ML VIAL 1 ml VIAL IV SLOW PU SCH (11:07)
[2023-07-31] MEDS: Aspirin EC 81 mg TAB.EC (enteric coated) PO SCH (11:12)
[2023-07-31 11:38] LABS: Albumin 3.1 g/dL (3.2-5.2); Albumin/Globulin Ratio 1.2 (1-3); Calcium 9.2 mg/dL (8.6-10.3); Creatinine, Serum 9.01 mg/dL (0.51-0.95); Globulin 2.5 g/dL (2-4); Magnesium 2.9 mg/dL (1.9-2.7); Potassium 6.2 mmol/L (3.5-5.0); Total Bilirubin 0.4 mg/dL (0.2-1.0); Total Protein 5.6 g/dL (6.4-8.9)
[2023-07-31] MEDS: Heparin 1,000 UNIT/ML 10 ml (10,000 UNITS) CATHLAB/DIALYSIS DIALYSIS PRN ×2 (12:30→15:31)
[2023-07-31] MEDS: Albumin Human 25% 25 GM/100 ML BTL IV PRN (12:49)
[2023-07-31] MEDS ORDERED: Morphine 2 MG/ML SYRINGE IV ONE (16:03)
[2023-07-31] MEDS: cefTRIAXone 2 gm/50 mL D5W 2 GM/50 ML BAG IV SCH (17:35)
[2023-08-01 06:13] LABS: ABS Lymphocytes 0.9 10^3/uL (1.0-4.8); ABS Monocytes 0.5 10^3/uL (0.0-0.9); ABS Neutrophils 5.9 10^3/uL (1.5-7.6); Eosinophil % 0.1 %; Hematocrit 23.8 % (35-45); Hemoglobin 7.8 g/dL (11.5-14.3); Lymphocyte % 12.1 %; Mean Corpuscular Hemoglobin 34.2 pg (27-33); Mean Corpuscular Hgb Conc 32.9 g/dL (31-36); Mean Platelet Volume 7.4 fL (7.5-11.2); Nucleated Red Blood Cells % 0.1 %/100WBC (0.0-0.8); Platelet Count 265 10^3/uL (150-450); Red Blood Count 2.29 10^6/uL (3.63-4.92); Red Cell Distribution Width 17.2 % (12-17); White Blood Count 7.3 10^3/uL (3.8-11.8)
[2023-08-01 06:29] LABS: Calcium 8.7 mg/dL (8.6-10.3); Creatinine, Serum 5.35 mg/dL (0.51-0.95); Magnesium 2.2 mg/dL (1.9-2.7); Potassium 5.2 mmol/L (3.5-5.0); eGFR CKD-EPI 7.6 (>60)
[2023-08-01] MEDS ORDERED: Remdesivir 100 mg Vial 100 MG in NS 0.9% 250 ml 230 ML IV SCH (09:00)
[2023-08-01] MEDS: Aspirin EC 81 mg TAB.EC (enteric coated) PO SCH (09:31)
[2023-08-01] MEDS: Dexamethasone IV 4 MG/ML VIAL 1 ml VIAL IV SLOW PU SCH (09:32)
[2023-08-01] MEDS: cefTRIAXone 2 gm/50 mL D5W 2 GM/50 ML BAG IV SCH (16:12)
[2023-08-01 16:58] LABS: Lactate Dehydrogenase, BF 2725 U/L
[2023-08-02 07:16] LABS: ABS Lymphocytes 1.3 10^3/uL (1.0-4.8); ABS Monocytes 0.8 10^3/uL (0.0-0.9); ABS Neutrophils 8.1 10^3/uL (1.5-7.6); ABS Nucleated RBC 0.01 10^3/ul; Eosinophil % 0.1 %; Mean Corpuscular Hgb Conc 33.3 g/dL (31-36); Mean Corpuscular Volume 101.9 fL (80-97); Nucleated Red Blood Cells % 0.1 %/100WBC (0.0-0.8); Platelet Count 329 10^3/uL (150-450); Red Blood Count 2.35 10^6/uL (3.63-4.92); Red Cell Distribution Width 17.1 % (12-17); White Blood Count 10.2 10^3/uL (3.8-11.8)
[2023-08-02] MEDS: Heparin 1,000 UNIT/ML 10 ml (10,000 UNITS) CATHLAB/DIALYSIS DIALYSIS PRN ×3 (07:35→11:00)
[2023-08-02 08:07] LABS: Calcium 8.6 mg/dL (8.6-10.3); Creatinine, Serum 6.6 mg/dL (0.51-0.95); Magnesium 2.3 mg/dL (1.9-2.7); Potassium 5.9 mmol/L (3.5-5.0); eGFR CKD-EPI 5.9 (>60)
[2023-08-02] MEDS: Albumin Human 25% 25 GM/100 ML BTL IV PRN (09:04)
[2023-08-02 09:58] LABS: Albumin, BF 2.7 g/dL; Total Protein, BF 4.7 g/dL
[2023-08-02] MEDS ORDERED: Morphine 2 MG/ML SYRINGE IV PRN ×2 (11:24→12:25)
[2023-08-02] MEDS: Dexamethasone IV 4 MG/ML VIAL 1 ml VIAL IV SLOW PU SCH (11:46)
[2023-08-02] MEDS: Aspirin EC 81 mg TAB.EC (enteric coated) PO SCH (11:46)
[2023-08-02] MEDS: cefTRIAXone 2 gm/50 mL D5W 2 GM/50 ML BAG IV SCH (14:28)
[2023-08-02] MEDS: Senna TAB 8.6 mg TAB PO SCH (23:49)
[2023-08-03 06:37] LABS: ABS Lymphocytes 1.3 10^3/uL (1.0-4.8); ABS Monocytes 0.7 10^3/uL (0.0-0.9); ABS Nucleated RBC 0.01 10^3/ul; Hematocrit 24.1 % (35-45); Hemoglobin 8.3 g/dL (11.5-14.3); Mean Corpuscular Hemoglobin 34.9 pg (27-33); Mean Corpuscular Hgb Conc 34.2 g/dL (31-36); Mean Corpuscular Volume 102.1 fL (80-97); Mean Platelet Volume 6.8 fL (7.5-11.2); Nucleated Red Blood Cells % 0.1 %/100WBC (0.0-0.8); Platelet Count 302 10^3/uL (150-450); Red Blood Count 2.36 10^6/uL (3.63-4.92); Red Cell Distribution Width 17.3 % (12-17); White Blood Count 8.9 10^3/uL (3.8-11.8)
[2023-08-03 06:55] LABS: Calcium 8.5 mg/dL (8.6-10.3); Creatinine, Serum 4.64 mg/dL (0.51-0.95); Magnesium 1.9 mg/dL (1.9-2.7)
[2023-08-03] MEDS: Senna TAB 8.6 mg TAB PO SCH ×2 (08:05→20:24)
[2023-08-03] MEDS: Aspirin EC 81 mg TAB.EC (enteric coated) PO SCH (08:07)
[2023-08-03] MEDS: Dexamethasone IV 4 MG/ML VIAL 1 ml VIAL IV SLOW PU SCH (08:13)
[2023-08-03] MEDS ORDERED: Polyethylene Glycol 3350 17 GM PACKET PO PRN (08:23)
[2023-08-03] MEDS ORDERED: Magnesium Hydroxide LIQ 30 ML UDC PO PRN (08:23)
[2023-08-03] MEDS ORDERED: LORazepam 2 mg VIAL 1 ml IV PUSH ONE (11:24)
[2023-08-03] MEDS ORDERED: Lorazepam PYXIS KEY PRN (11:24)
[2023-08-03] MEDS: Magnesium Hydroxide LIQ 30 ML UDC PO SCH ×2 (11:50→20:19)
[2023-08-03] MEDS: Polyethylene Glycol 3350 17 GM PACKET PO SCH (14:11)
[2023-08-03] MEDS: cefTRIAXone 2 gm/50 mL D5W 2 GM/50 ML BAG IV SCH (14:11)
[2023-08-04 06:34] LABS: ABS Lymphocytes 1.8 10^3/uL (1.0-4.8); ABS Monocytes 0.9 10^3/uL (0.0-0.9); ABS Neutrophils 8.6 10^3/uL (1.5-7.6); ABS Nucleated RBC 0.02 10^3/ul; Eosinophil % 0.1 %; Hematocrit 26.6 % (35-45); Hemoglobin 8.7 g/dL (11.5-14.3); Lymphocyte % 16.1 %; Mean Corpuscular Hgb Conc 32.6 g/dL (31-36); Mean Corpuscular Volume 104.3 fL (80-97); Mean Platelet Volume 6.6 fL (7.5-11.2); Nucleated Red Blood Cells % 0.2 %/100WBC (0.0-0.8); Platelet Count 300 10^3/uL (150-450); Red Blood Count 2.56 10^6/uL (3.63-4.92); Red Cell Distribution Width 17.3 % (12-17); White Blood Count 11.3 10^3/uL (3.8-11.8)
[2023-08-04 06:49] LABS: Calcium 8.5 mg/dL (8.6-10.3); Creatinine, Serum 5.72 mg/dL (0.51-0.95); Magnesium 2.3 mg/dL (1.9-2.7); Potassium 5.7 mmol/L (3.5-5.0)
[2023-08-04] MEDS: Polyethylene Glycol 3350 17 GM PACKET PO SCH (09:12)
[2023-08-04] MEDS: Senna TAB 8.6 mg TAB PO SCH (09:13)
[2023-08-04] MEDS: Aspirin EC 81 mg TAB.EC (enteric coated) PO SCH (09:13)
[2023-08-04] MEDS: Magnesium Hydroxide LIQ 30 ML UDC PO SCH (09:20)
[2023-08-04] MEDS: Dexamethasone IV 4 MG/ML VIAL 1 ml VIAL IV SLOW PU SCH (09:20)
[2023-08-04] MEDS: cefTRIAXone 2 gm/50 mL D5W 2 GM/50 ML BAG IV SCH (13:17)
[2023-08-04 14:07] VITALS: BP 114/67
[2023-08-04] MEDS ORDERED: SODIUM ZIRCONIUM CYCLOSILICATE 10 GM PACKET PO SCH (21:00)
== END 2023-08-04 17:00 | DRG 754 ==
LOC: ED 11:51 → EDHOLD 14:41 → SUATTDRO 14:41 → MED 20:37
PROVIDERS: ADMIT Internal Medicine; ATTEND Internal Medicine

== ENCOUNTER 2023-08-05 15:51 | Inpatient (IN) ==
[2023-08-05] MEDS ORDERED: Iodixanol (CONTRAST) 320 MG/ML 100 ML SDV IV ONE (17:21)
[2023-08-05 17:34] LABS: ABS Eosinophils 0.1 10^3/uL (0.0-0.5); ABS Lymphocytes 1.7 10^3/uL (1.0-4.8); ABS Monocytes 0.8 10^3/uL (0.0-0.9); ABS Neutrophils 9.3 10^3/uL (1.5-7.6); ABS Nucleated RBC 0.02 10^3/ul; Hematocrit 27.1 % (35-45); Hemoglobin 9.1 g/dL (11.5-14.3); Lymphocyte % 14.2 %; Mean Corpuscular Hemoglobin 34.4 pg (27-33); Mean Corpuscular Hgb Conc 33.6 g/dL (31-36); Mean Corpuscular Volume 102.6 fL (80-97); Mean Platelet Volume 6.7 fL (7.5-11.2); Nucleated Red Blood Cells % 0.1 %/100WBC (0.0-0.8); Platelet Count 325 10^3/uL (150-450); Red Blood Count 2.64 10^6/uL (3.63-4.92); White Blood Count 11.9 10^3/uL (3.8-11.8)
[2023-08-05 17:54] LABS: Albumin 3.2 g/dL (3.2-5.2); Albumin/Globulin Ratio 1.3 (1-3); C Reactive Protein 16.32 mg/L (<8.01); Calcium 8.6 mg/dL (8.6-10.3); Creatinine, Serum 4.2 mg/dL (0.51-0.95); Globulin 2.4 g/dL (2-4); Potassium 4.5 mmol/L (3.5-5.0); Total Bilirubin 0.3 mg/dL (0.2-1.0); Total Protein 5.6 g/dL (6.4-8.9); eGFR CKD-EPI 10.1 (>60)
[2023-08-05 18:07] LABS: Activated Partial Thrombo Time 28.1 seconds (26.0-38.0); INR 1.28 (0.83-1.13)
[2023-08-05] MEDS ORDERED: Azithromycin 500 mg/250 ml NS 500 MG/250 ML BAG IVPB ONE (18:22)
[2023-08-05] MEDS ORDERED: cefTRIAXone 1 gm/50 mL D5W 1 GM/50 ML BAG IV ONE (18:22)
[2023-08-05] MEDS ORDERED: NS 0.9% 500 ml BAG 500 ML IV ONE ×2 (18:26→21:02)
[2023-08-05 18:52] LABS: High Sensitivity Troponin 1 Hr 43 pg/mL (<15)
[2023-08-06] MEDS ORDERED: Dextrose 50% Syringe 50 ml 25 GM/50 ML SYRINGE IV PUSH PRN (04:38)
[2023-08-06 06:35] LABS: Urine Appearance Cloudy; Urine Bacteria Absent (Absent); Urine Bilirubin Negative (Negative); Urine Blood Negative (Negative); Urine Color Yellow; Urine Glucose 1+(50 mg/dL) (Negative); Urine Ketones Negative (Negative); Urine Nitrite Negative (Negative); Urine Protein 2+(100 mg/dL) (Negative); Urine Red Blood Cell Trace(0-2/hpf) (Absent); Urine Renal Epithelial Cells Present (Absent); Urine Specific Gravity 1.019 (1.002-1.030); Urine Squamous Epithelial Cell Present (Absent); Urine Transitional Epithelial Present (Absent); Urine Urobilinogen Negative (Negative); Urine White Blood Cell 1+(6-10/hpf) (Absent)
[2023-08-06 07:13] LABS: Albumin 2.9 g/dL (3.2-5.2); Albumin/Globulin Ratio 1.3 (1-3); Calcium 7.9 mg/dL (8.6-10.3); Creatinine, Serum 4.6 mg/dL (0.51-0.95); Globulin 2.3 g/dL (2-4); Potassium 5.1 mmol/L (3.5-5.0); Total Bilirubin 0.3 mg/dL (0.2-1.0); Total Protein 5.2 g/dL (6.4-8.9); eGFR CKD-EPI 9.1 (>60)
[2023-08-06 07:20] LABS: Hematocrit 24.9 % (35-45); Hemoglobin 8.3 g/dL (11.5-14.3); Mean Corpuscular Hemoglobin 34.4 pg (27-33); Mean Corpuscular Hgb Conc 33.3 g/dL (31-36); Mean Corpuscular Volume 103.4 fL (80-97); Red Blood Count 2.41 10^6/uL (3.63-4.92); Red Cell Distribution Width 18.1 % (12-17); White Blood Count 10.8 10^3/uL (3.8-11.8)
[2023-08-06 07:21] LABS: ABS Eosinophils 0.1 10^3/uL (0.0-0.5); ABS Lymphocytes 1.3 10^3/uL (1.0-4.8); ABS Monocytes 0.5 10^3/uL (0.0-0.9); ABS Neutrophils 8.9 10^3/uL (1.5-7.6); Lymphocyte % 12.1 %; Nucleated Red Blood Cells % 0.2 %/100WBC (0.0-0.8)
[2023-08-06 07:40] LABS: ABS Nucleated RBC 0.02 10^3/ul
[2023-08-06] MEDS: Cholecalciferol (VIT D3) 1,000 unit TAB PO SCH (08:01)
[2023-08-06] MEDS: Aspirin EC 81 mg TAB.EC (enteric coated) PO SCH (08:02)
[2023-08-06] MEDS ORDERED: Heparin 5000 UNITS/ML 1 mL VIAL SUBCUT SCH (09:00)
[2023-08-06] MEDS ORDERED: LACTULOSE PO SCH (09:00)
[2023-08-06] MEDS ORDERED: Piperacillin/Tazobac 3.375 BAG 3.375 GM/100 ML BAG IV ONE (11:05)
[2023-08-06] MEDS ORDERED: Zosyn per Pharmacy NOTE FOLLOW UP SCH (12:00)
[2023-08-06] MEDS: Isosorbide Mononit ER 30mg TAB PO SCH (12:09)
[2023-08-06] MEDS ORDERED: NS 0.9% 1000 ml BAG 200 ML IV PRN (13:39)
[2023-08-06] MEDS ORDERED: NS 0.9% 1000 ml BAG 100 ML IV PRN (13:39)
[2023-08-06] MEDS: ZOSYN 3.375 GM Q12H per EXTENDED INFUSION IV SCH (16:30)
[2023-08-06] MEDS ORDERED: cefTRIAXone 1 gm/50 mL D5W 1 GM/50 ML BAG IV SCH (18:00)
[2023-08-06] MEDS ORDERED: Azithromycin 500 mg/250 ml NS 500 MG/250 ML BAG IVPB SCH (18:30)
[2023-08-07] MEDS: ZOSYN 3.375 GM Q12H per EXTENDED INFUSION IV SCH ×2 (07:18→18:03)
[2023-08-07] MEDS: Heparin 1,000 UNIT/ML 10 ml (10,000 UNITS) CATHLAB/DIALYSIS DIALYSIS PRN ×3 (08:30→12:27)
[2023-08-07] MEDS: Albumin Human 25% 25 GM/100 ML BTL IV PRN (08:50)
[2023-08-07] MEDS: Isosorbide Mononit ER 30mg TAB PO SCH (13:17)
[2023-08-07] MEDS: Cholecalciferol (VIT D3) 1,000 unit TAB PO SCH (13:20)
[2023-08-07] MEDS: Aspirin EC 81 mg TAB.EC (enteric coated) PO SCH (13:22)
[2023-08-08] MEDS: ZOSYN 3.375 GM Q12H per EXTENDED INFUSION IV SCH (05:24)
[2023-08-08] MEDS: Cholecalciferol (VIT D3) 1,000 unit TAB PO SCH (09:16)
[2023-08-08] MEDS: Aspirin EC 81 mg TAB.EC (enteric coated) PO SCH (09:17)
[2023-08-08] MEDS ORDERED: APREPITANT 130 MG in Premix IV 0 ML IVPB ONE (13:00)
[2023-08-08] MEDS ORDERED: Dexamethasone IV 4 MG/ML VIAL 1 ml VIAL IV SLOW PU ONE (13:00)
[2023-08-08] MEDS ORDERED: PALONOSETRON HCL 0.05 MG/ML (0.25 MG) SYRINGE (0.05 MG/ML) IVPB ONE (13:00)
[2023-08-08] MEDS ORDERED: GEMCITABINE IVPB ONE (13:30)
[2023-08-08] MEDS ORDERED: CARBOPLATIN IVPB ONE (13:30)
[2023-08-08] MEDS ORDERED: NS 0.9% IVPB ONE ×2 (13:30)
[2023-08-08 17:16] LABS: Body Fluid Appearance Clear; Body Fluid Color Yellow; Body Fluid Source Pleural Fluid
[2023-08-08 17:19] LABS: Body Fluid Total Nucleated 950 /mcL
[2023-08-08 18:08] LABS: Body Fluid Mono 50 %; Body Fluid Other Cells 3; Body Fluid Total Cells Counted 200
[2023-08-08] MEDS: Fluticasone NASAL SPRAY 50MCG 16 gm SPRAY BTL BOTH NARES SCH (22:27)
[2023-08-09] MEDS: Aspirin EC 81 mg TAB.EC (enteric coated) PO SCH (09:22)
[2023-08-09] MEDS: Cholecalciferol (VIT D3) 1,000 unit TAB PO SCH (09:36)
[2023-08-09] MEDS: Fluticasone NASAL SPRAY 50MCG 16 gm SPRAY BTL BOTH NARES SCH (09:54)
[2023-08-09 13:49] LABS: ABS Lymphocytes 0.8 10^3/uL (1.0-4.8); ABS Monocytes 0.3 10^3/uL (0.0-0.9); ABS Neutrophils 10.3 10^3/uL (1.5-7.6); Hematocrit 22.5 % (35-45); Hemoglobin 7.4 g/dL (11.5-14.3); Lymphocyte % 6.7 %; Mean Corpuscular Hemoglobin 33.8 pg (27-33); Mean Corpuscular Volume 102.5 fL (80-97); Mean Platelet Volume 7.2 fL (7.5-11.2); Platelet Count 193 10^3/uL (150-450); White Blood Count 11.4 10^3/uL (3.8-11.8)
[2023-08-09 14:06] LABS: Calcium 8.7 mg/dL (8.6-10.3); Creatinine, Serum 5.62 mg/dL (0.51-0.95); Magnesium 2.3 mg/dL (1.9-2.7); Potassium 4.6 mmol/L (3.5-5.0); eGFR CKD-EPI 7.1 (>60)
[2023-08-09] MEDS: Heparin 1,000 UNIT/ML 10 ml (10,000 UNITS) CATHLAB/DIALYSIS DIALYSIS PRN ×3 (14:20→17:25)
[2023-08-09] MEDS: MULTIVITAMINS PO SCH ×2 (14:38→21:44)
[2023-08-09] MEDS: MINERA AREDS PO SCH ×2 (14:38→21:44)
[2023-08-09] MEDS: Albumin Human 25% 25 GM/100 ML BTL IV PRN (16:13)
[2023-08-09 19:45] LABS: ABS Lymphocytes 0.8 10^3/uL (1.0-4.8); ABS Monocytes 0.5 10^3/uL (0.0-0.9); ABS Neutrophils 9.2 10^3/uL (1.5-7.6); Hematocrit 21.3 % (35-45); Hemoglobin 7.2 g/dL (11.5-14.3); Lymphocyte % 7.3 %; Mean Corpuscular Hemoglobin 34.3 pg (27-33); Mean Corpuscular Hgb Conc 33.9 g/dL (31-36); Mean Corpuscular Volume 101.3 fL (80-97); Mean Platelet Volume 7.5 fL (7.5-11.2); Platelet Count 176 10^3/uL (150-450); Red Cell Distribution Width 17.1 % (12-17); White Blood Count 10.4 10^3/uL (3.8-11.8)
[2023-08-09] MEDS ORDERED: Fluticasone NASAL SPRAY 50MCG 16 gm SPRAY BTL BOTH NARES ONE (22:24)
[2023-08-10 08:10] LABS: Calcium 8.3 mg/dL (8.6-10.3); Creatinine, Serum 3.88 mg/dL (0.51-0.95); Potassium 4.6 mmol/L (3.5-5.0); eGFR CKD-EPI 11.1 (>60)
[2023-08-10 08:31] LABS: ABS Lymphocytes 1.2 10^3/uL (1.0-4.8); ABS Monocytes 0.3 10^3/uL (0.0-0.9); ABS Neutrophils 8.3 10^3/uL (1.5-7.6); ABS Nucleated RBC 0.01 10^3/ul; Eosinophil % 0.2 %; Hematocrit 21.8 % (35-45); Hemoglobin 7.3 g/dL (11.5-14.3); Lymphocyte % 11.9 %; Mean Corpuscular Hemoglobin 34.3 pg (27-33); Mean Corpuscular Hgb Conc 33.6 g/dL (31-36); Mean Corpuscular Volume 102.1 fL (80-97); Mean Platelet Volume 7.7 fL (7.5-11.2); Nucleated Red Blood Cells % 0.1 %/100WBC (0.0-0.8); Platelet Count 177 10^3/uL (150-450); Red Blood Count 2.13 10^6/uL (3.63-4.92); Red Cell Distribution Width 16.9 % (12-17); White Blood Count 9.8 10^3/uL (3.8-11.8)
[2023-08-10] MEDS: MULTIVITAMINS PO SCH ×2 (09:53→20:11)
[2023-08-10] MEDS: Fluticasone NASAL SPRAY 50MCG 16 gm SPRAY BTL BOTH NARES SCH ×2 (09:53→20:11)
[2023-08-10] MEDS: MINERA AREDS PO SCH ×2 (09:53→20:11)
[2023-08-10] MEDS: Cholecalciferol (VIT D3) 1,000 unit TAB PO SCH (10:08)
[2023-08-10] MEDS: HYDROcodone/Acetamin 10/325 TAB (NF) PO PRN (17:03)
[2023-08-11] MEDS: HYDROcodone/Acetamin 10/325 TAB (NF) PO PRN ×2 (02:18→18:04)
[2023-08-11 07:33] LABS: ABS Eosinophils 0.1 10^3/uL (0.0-0.5); ABS Lymphocytes 1.1 10^3/uL (1.0-4.8); ABS Monocytes 0.1 10^3/uL (0.0-0.9); ABS Neutrophils 7.7 10^3/uL (1.5-7.6); Eosinophil % 1.1 %; Hematocrit 21.6 % (35-45); Hemoglobin 7.2 g/dL (11.5-14.3); Lymphocyte % 12.5 %; Mean Corpuscular Hemoglobin 34.3 pg (27-33); Mean Corpuscular Hgb Conc 33.5 g/dL (31-36); Mean Corpuscular Volume 102.4 fL (80-97); Mean Platelet Volume 7.8 fL (7.5-11.2); Platelet Count 160 10^3/uL (150-450); Red Blood Count 2.11 10^6/uL (3.63-4.92); Red Cell Distribution Width 16.7 % (12-17)
[2023-08-11 07:42] LABS: Creatinine, Serum 5.11 mg/dL (0.51-0.95); Magnesium 2.2 mg/dL (1.9-2.7); Phosphorus 4.6 mg/dL (2.5-5.0); Potassium 4.9 mmol/L (3.5-5.0)
[2023-08-11] MEDS: Isosorbide Mononit ER 30mg TAB PO SCH (09:31)
[2023-08-11] MEDS: Cholecalciferol (VIT D3) 1,000 unit TAB PO SCH (09:31)
[2023-08-11] MEDS: Aspirin EC 81 mg TAB.EC (enteric coated) PO SCH (09:35)
[2023-08-11] MEDS: Fluticasone NASAL SPRAY 50MCG 16 gm SPRAY BTL BOTH NARES SCH ×2 (09:36→21:21)
[2023-08-11] MEDS: MINERA AREDS PO SCH ×2 (09:39→21:20)
[2023-08-11] MEDS: MULTIVITAMINS PO SCH ×2 (09:39→21:20)
[2023-08-11 10:11] LABS: Albumin, BF 2.2 g/dL; Fluid Type, Albumin PLEURAL; Fluid Type, Protein, Total PLEURAL; Glucose, BF 116 mg/dL; Total Protein, BF 2.9 g/dL
[2023-08-11 11:06] LABS: Lactate Dehydrogenase, BF 127 U/L
[2023-08-12 05:53] LABS: ABS Eosinophils 0.1 10^3/uL (0.0-0.5); ABS Lymphocytes 1.1 10^3/uL (1.0-4.8); ABS Monocytes 0.1 10^3/uL (0.0-0.9); ABS Neutrophils 8.1 10^3/uL (1.5-7.6); Eosinophil % 1.4 %; Hematocrit 20.8 % (35-45); Lymphocyte % 11.6 %; Mean Corpuscular Hemoglobin 34.2 pg (27-33); Mean Corpuscular Hgb Conc 33.6 g/dL (31-36); Mean Corpuscular Volume 101.7 fL (80-97); Mean Platelet Volume 7.6 fL (7.5-11.2); Platelet Count 169 10^3/uL (150-450); Red Blood Count 2.04 10^6/uL (3.63-4.92); Red Cell Distribution Width 16.9 % (12-17); White Blood Count 9.4 10^3/uL (3.8-11.8)
[2023-08-12 06:05] LABS: Calcium 8.4 mg/dL (8.6-10.3); Creatinine, Serum 6.37 mg/dL (0.51-0.95); Magnesium 2.4 mg/dL (1.9-2.7); Phosphorus 5.6 mg/dL (2.5-5.0); Potassium 5.3 mmol/L (3.5-5.0); eGFR CKD-EPI 6.1 (>60)
[2023-08-12] MEDS: Heparin 1,000 UNIT/ML 10 ml (10,000 UNITS) CATHLAB/DIALYSIS DIALYSIS PRN (08:30)
[2023-08-12] MEDS: Albumin Human 25% 25 GM/100 ML BTL IV PRN (09:23)
[2023-08-12] MEDS: HYDROcodone/Acetamin 10/325 TAB (NF) PO PRN (09:33)
[2023-08-12] MEDS: Cholecalciferol (VIT D3) 1,000 unit TAB PO SCH (12:29)
[2023-08-12] MEDS: Isosorbide Mononit ER 30mg TAB PO SCH (12:32)
[2023-08-12] MEDS: Aspirin EC 81 mg TAB.EC (enteric coated) PO SCH (12:32)
[2023-08-12] MEDS: MINERA AREDS PO SCH ×2 (12:45→21:58)
[2023-08-12] MEDS: MULTIVITAMINS PO SCH ×2 (12:45→21:58)
[2023-08-12] MEDS: Fluticasone NASAL SPRAY 50MCG 16 gm SPRAY BTL BOTH NARES SCH ×2 (12:45→21:56)
[2023-08-13] MEDS: Fluticasone NASAL SPRAY 50MCG 16 gm SPRAY BTL BOTH NARES SCH (08:37)
[2023-08-13] MEDS: Isosorbide Mononit ER 30mg TAB PO SCH (08:39)
[2023-08-13] MEDS: Aspirin EC 81 mg TAB.EC (enteric coated) PO SCH (08:40)
[2023-08-13] MEDS: MINERA AREDS PO SCH (08:41)
[2023-08-13] MEDS: MULTIVITAMINS PO SCH (08:41)
[2023-08-13] MEDS: Cholecalciferol (VIT D3) 1,000 unit TAB PO SCH (08:42)
[2023-08-13 09:50] VITALS: BP 113/50
== END 2023-08-13 14:08 | DRG 754 ==
LOC: ED 15:51 → EDHOLD 15:51 → SUATTDRO 22:18 → MEDTELE 08-06 10:20 → SUATTDRO 08-07 09:00
PROVIDERS: ADMIT Internal Medicine; ATTEND Internal Medicine

== ENCOUNTER 2023-08-19 12:45 | Observation (INO) ==
[2023-08-19] MEDS ORDERED: oxyCODONE/Acetamin 5/325 mg TAB PO ONE (14:55)
[2023-08-19 15:03] LABS: Activated Partial Thrombo Time 30.1 seconds (26.0-38.0); INR 1.27 (0.83-1.13)
[2023-08-19 15:12] LABS: Hematocrit 18.4 % (35-45); Hemoglobin 6.2 g/dL (11.5-14.3); Mean Corpuscular Hemoglobin 33.9 pg (27-33); Mean Corpuscular Hgb Conc 33.9 g/dL (31-36); Mean Corpuscular Volume 100.1 fL (80-97); Red Blood Count 1.84 10^6/uL (3.63-4.92); Red Cell Distribution Width 16.2 % (12-17); White Blood Count 2.1 10^3/uL (3.8-11.8)
[2023-08-19 15:21] LABS: ABS Lymphocytes 0.7 10^3/uL (1.0-4.8); ABS Neutrophils 1.4 10^3/uL (1.5-7.6); Lymphocyte % 33.8 %; Nucleated Red Blood Cells % 0.1 %/100WBC (0.0-0.8)
[2023-08-19 15:34] LABS: Mean Platelet Volume 7.7 fL (7.5-11.2); Platelet Count 42 10^3/uL (150-450)
[2023-08-19 15:35] LABS: Albumin/Globulin Ratio 1.2 (1-3); C Reactive Protein 76.75 mg/L (<8.01); Calcium 8.8 mg/dL (8.6-10.3); Creatinine, Serum 3.45 mg/dL (0.51-0.95); Globulin 2.6 g/dL (2-4); Potassium 3.8 mmol/L (3.5-5.0); Total Bilirubin 0.4 mg/dL (0.2-1.0); Total Protein 5.6 g/dL (6.4-8.9); eGFR CKD-EPI 12.8 (>60)
[2023-08-19 15:35] LABS: Anisocytosis 2+; Macrocytosis 1+
[2023-08-19 16:34] LABS: High Sensitivity Troponin 1 Hr 42 pg/mL (<15)
[2023-08-19] MEDS ORDERED: NS 0.9% 500 ml BAG 500 ML IV ONE (19:05)
[2023-08-19] MEDS ORDERED: oxyCODONE 5 mg/5 ml ORAL.SOLN UDC PO PRN (21:05)
[2023-08-20] MEDS: Isosorbide Mononit ER 30mg TAB PO SCH (08:07)
[2023-08-20] MEDS ORDERED: Aspirin EC 81 mg TAB.EC (enteric coated) PO SCH (09:00)
[2023-08-20] MEDS: Pentoxifylline CR 400 mg TAB 400 MG PO SCH (09:07)
[2023-08-20 18:18] LABS: Hematocrit 18.8 % (35-45); Hemoglobin 6.3 g/dL (11.5-14.3)
[2023-08-21 02:04] VITALS: BP 121/59
[2023-08-21] MEDS: Isosorbide Mononit ER 30mg TAB PO SCH (09:09)
[2023-08-21] MEDS: Pentoxifylline CR 400 mg TAB 400 MG PO SCH (09:33)
[2023-08-21] MEDS ORDERED: Morphine ORAL CONCENTRATE 5 MG/0.25 ML ORAL.SYRIN SL PRN ×2 (09:35→15:30)
[2023-08-21] MEDS ORDERED: Morphine ORAL.SOLN 10 mg 2 mg/ml UDC 5 ml (10 mg) PO PRN ×3 (09:36→20:15)
[2023-08-21 18:00] LABS: Rapid COVID-19 Molecular Undetected (Undetected)
[2023-08-21] MEDS: Morphine ORAL CONCENTRATE 5 MG/0.25 ML ORAL.SYRIN SL PRN (21:12)
[2023-08-21] MEDS: Fluticasone NASAL SPRAY 50MCG 16 gm SPRAY BTL BOTH NARES SCH (22:50)
[2023-08-22] MEDS: Atropine 1% (ORAL/SL) 15 ML BTL SL PRN ×2 (04:03→08:24)
[2023-08-22] MEDS: Morphine ORAL CONCENTRATE 5 MG/0.25 ML ORAL.SYRIN SL PRN (08:24)
[2023-08-22] MEDS: Fluticasone NASAL SPRAY 50MCG 16 gm SPRAY BTL BOTH NARES SCH (08:25)
[2023-08-22] MEDS: Isosorbide Mononit ER 30mg TAB PO SCH (08:29)
[2023-08-22] MEDS: Pentoxifylline CR 400 mg TAB 400 MG PO SCH (08:29)
== END 2023-08-22 10:20 | disposition hospice, home (50) ==
LOC: ED 12:45 → EDHOLD 12:45 → SUATTDRO 18:33 → MEDTELE 20:22
PROVIDERS: ADMIT Hospitalist; ATTEND Internal Medicine